=== PATIENT | female | born 1940 | race Caucasian/White ===

== ENCOUNTER 2018-04-22 14:29 | Inpatient (IN) | payer OTHER, MEDICARE ==
--- NOTE | 2018-04-22 14:50 | RAD REPORT ---
EXAM DESCRIPTION: CT - Ct Stroke Brain Wo Cont - 04/22/2018 2:44 pm CLINICAL HISTORY: CVA COMPARISON: 09/20/2011 TECHNIQUE: All CT scans are performed using dose optimization technique as appropriate and may inclu de automated exposure control or mA/KV adjustment according to patient size. FINDINGS: No intracranial hemorrhage, hydrocephalus or extra-axial fluid collection.No areas of brai n edema or evidence of midline shift. The paranasal sinuses and mastoids are clear. The calvarium is intact. IMPRESSION: No acute intracranial abnormality. The findings were discussed with ER physician Dr. Leyva on 04/22/2018 at 2:45 p.m. by telephone.
--- NOTE | 2018-04-22 15:11 | RAD REPORT ---
EXAM DESCRIPTION: RAD - Chest Single View - 04/22/2018 3:00 pm CLINICAL HISTORY: Chest pain. COMPARISON: 03/15/2016 FINDINGS: Portable technique limits examination quality. Mild linear subsegmental atelectasis is present in the left mid lung. The lungs are clear of acute in filtrate. The heart is normal in size. No displaced fractures. IMPRESSION: No acute intrathoracic process suspected.
[2018-04-22] MEDS ORDERED: ASPIRIN 81 MG CHEWABLE TABLET ONE (15:22)
[2018-04-22 15:32] LABS: Protime INR 0.99
[2018-04-22 15:33] LABS: Potassium 3.9 mEq/L (3.6-5.0)
[2018-04-22 15:34] LABS: Absolute Lymphocytes (CBC) 2.1 K/uL (0.7-4.9); Absolute Monocytes 0.6 K/uL (0.1-1.3); Absolute Neutrophil 4.6 K/uL (1.8-8.0); Basophils % 2.2 % (0-1.3); Eosinophils % 6.6 % (0-4.4); Hematocrit 43.4 % (36.0-45.0); Lymphocytes % 26.6 % (15.3-44.8); Monocytes % 7.2 % (3.3-12.3); RBC Red Blood Cell Count 5.23 M/uL (3.86-4.86)
[2018-04-22 15:40] LABS: Albumin 4.3 g/dL (3.2-5.5); Bilirubin Direct 0.1 mg/dL (0-0.2); Bilirubin Total 0.2 mg/dL (0.3-1.2); Magnesium 2.1 mg/dL (1.8-2.5)
[2018-04-22 15:43] LABS: CKMB Creatine Kinase MB 6.7 ng/ml (0.3-4.0)
[2018-04-22 16:30] LABS: Urine Blood NEGATIVE (NEG); Urine Glucose NEGATIVE (NEG); Urine Protein NEGATIVE (NEG)
--- NOTE | 2018-04-22 16:56 | RAD REPORT ---
EXAM DESCRIPTION: MRI - Brain Wo Cont - 04/22/2018 4:44 pm CLINICAL HISTORY: Slurred speech COMPARISON: April 22, [address] TECHNIQUE: Axial, sagittal, and coronal magnetic images of the brain were obtained. Contrast was not requested FINDINGS: Diffusion-weighted/ADC mapping demonstrates a 7 millimeter area of abnormal signal within predominate ly the right thalamus consistent with an acute infarction. . The ventricles are normal caliber. An extra-axial fluid collection is not present The sinuses and mastoids are clear. IMPRESSION: 7 millimeter acute infarct right thalamus . Doctor Leyva of the emergency room was no tified
[2018-04-22] MEDS ORDERED: ONDANSETRON 4 MG/2 ML VIAL IV PRN (17:19)
[2018-04-22] MEDS ORDERED: ACETAMINOPHEN 500 MG TAB PO PRN (17:19)
--- NOTE | 2018-04-22 17:26 | EDPHYS ---
Physician Documentation [facility] Name: Nory Granda Age: 77 yrs Sex: Female : 1940 Arrival Date: 04/22/2018 Time: 14:31 Bed 2 Private MD: Laith Shaw V ED Physician Jeffrey Leyva HPI: 04/22 15:05 This 77 yrs old Female presents to ER via Wheelchair with complaints of milagros Weakness. 15:05 The patient presents to the emergency department with difficult walking, the patient milagros falls to the left. Onset: The symptoms/episode began/occurred this morning, 930am. Context: occurred at home. Associated signs and symptoms: The patient has no apparent associated signs or symptoms. Severity of symptoms: At their worst the symptoms were mild in the emergency department the symptoms have improved moderately. Patient's baseline: Neuro: alert and fully oriented. Current symptoms: Currently, the patient is not experiencing any symptoms, the patient feels back to baseline. The patient has not experienced similar symptoms in the past. Historical: - Allergies: 14:41 PENICILLINS; sv 14:41 Streptomycin; sv - Home Meds: 14:41 Metoprolol Tartrate Oral [Active]; sv 16:14 gabapentin 400 mg oral cap 1 cap 3 times per day [Active]; Singulair 10 mg Oral tab 1 ph tab once daily [Active]; metoprolol tartrate 50 mg Oral tab 1 tab 2 times per day [Active]; losartan-hydrochlorothiazide 100-25 mg oral tab 1 tab once daily [Active]; Synthroid 50 mcg Oral tab 1 tab once daily [Active]; ranitidine HCl 150 mg Oral tab daily [Active]; - PMHx: 14:41 Hypertension; sv - PSHx: 14:41 thyroid; sv - Immunization history:: Adult Immunizations unknown. - Social history:: Smoking status: Patient/guardian denies using tobacco. - Family history:: not pertinent. - Ebola Screening: : No symptoms or risks identified at this time. ROS: 15:05 Constitutional: Negative for fever, chills, and weight loss, Eyes: Negative for injury, milagros pain, redness, and discharge, ENT: Negative for injury, pain, and discharge, Neck: Negative for injury, pain, and swelling, Cardiovascular: Negative for chest pain, palpitations, and edema, Respiratory: Negative for shortness of breath, cough, wheezing, and pleuritic chest pain, Abdomen/GI: Negative for abdominal pain, nausea, vomiting, diarrhea, and constipation, Back: Negative for injury and pain, : Negative for injury, bleeding, discharge, and swelling, MS/Extremity: Negative for injury and deformity, Skin: Negative for injury, rash, and discoloration, Psych: Negative for depression, anxiety, suicide ideation, homicidal ideation, and hallucinations, Allergy/Immunology: Negative for hives, rash, and allergies, Endocrine: Negative for neck swelling, polydipsia, polyuria, polyphagia, and marked weight changes, Hematologic/Lymphatic: Negative for swollen nodes, abnormal bleeding, and unusual bruising. 15:05 Neuro: Positive for weakness, of the left arm and left leg. Exam: 15:05 Constitutional: This is a well developed, well nourished patient who is awake, alert, milagros and in no acute distress. Head/Face: Normocephalic, atraumatic. Eyes: Pupils equal round and reactive to light, extra-ocular motions intact. Lids and lashes normal. Conjunctiva and sclera are non-icteric and not injected. Cornea within normal limits. Periorbital areas with no swelling, redness, or edema. ENT: Nares patent. No nasal discharge, no septal abnormalities noted. Tympanic membranes are normal and external auditory canals are clear. Oropharynx with no redness, swelling, or masses, exudates, or evidence of obstruction, uvula midline. Mucous membranes moist. Neck: Trachea midline, no thyromegaly or masses palpated, and no cervical lymphadenopathy. Supple, full range of motion without nuchal rigidity, or vertebral point tenderness. No Meningismus. Chest/axilla: Normal chest wall appearance and motion. Nontender with no deformity. No lesions are appreciated. Cardiovascular: Regular rate and rhythm with a normal S1 and S2. No gallops, murmurs, or rubs. Normal PMI, no JVD. No pulse deficits. Respiratory: Lungs have equal breath sounds bilaterally, clear to auscultation and percussion. No rales, rhonchi or wheezes noted. No increased work of breathing, no retractions or nasal flaring. Abdomen/GI: Soft, non-tender, with normal bowel sounds. No distension or tympany. No guarding or rebound. No evidence of tenderness throughout. Back: No spinal tenderness. No costovertebral tenderness. Full range of motion. Female : Normal external genitalia. Skin: Warm, dry with normal turgor. Normal color with no rashes, no lesions, and no evidence of cellulitis. MS/ Extremity: Pulses equal, no cyanosis. Neurovascular intact. Full, normal range of motion. Neuro: Awake and alert, GCS 15, oriented to person, place, time, and situation. Cranial nerves II-XII grossly intact. Motor strength 5/5 in all extremities. Sensory grossly intact. Cerebellar exam normal. Normal gait. Psych: Awake, alert, with orientation to person, place and time. Behavior, mood, and affect are within normal limits. 17:01 Neuro: pt presented to [facility] 1431hrs, symptoms were at 930 am, not a tpa candidate, milagros discussed with dr ortiz, he agrees. Vital Signs: 14:38 BP 218 / 87; Pulse 64; Resp 16; Pulse Ox 98% on R/A; ph 16:00 BP 195 / 87; Pulse 57; Resp 16; Temp 98.5(TE); Pulse Ox 98% on R/A; Pain 0/10; ph 17:02 BP 190 / 79; Pulse 58; Resp 18; Temp 97.6(O); Pulse Ox 100% on R/A; Pain 0/10; em1 18:00 BP 164 / 70; Pulse 57; Resp 18; Pulse Ox 98% on R/A; Pain 0/10; em1 19:45 BP 152 / 57; Pulse 59; Resp 16; Pulse Ox 98% ; bp NIH Stroke Scale Scores: 14:45 NIHSS Score: 2 ph 17:01 NIHSS Score: 1 milagros MDM: 14:37 Patient medically screened. [facility] 15:08 Data reviewed: vital signs, nurses notes, lab test result(s), EKG, radiologic studies, [facility] CT scan, plain films, ultrasound. 04/22 14:39 Order name: Basic Metabolic Panel; Complete Time: 16:58 [facility] 04/22 14:39 Order name: BNP; Complete Time: 16:58 [facility] 04/22 14:39 Order name: CBC with Diff [facility] 04/22 14:39 Order name: Ckmb; Complete Time: 16:58 [facility] 04/22 14:39 Order name: CPK; Complete Time: 16:58 [facility] 04/22 14:39 Order name: LFT's; Complete Time: 16:58 [facility] 04/22 14:39 Order name: Magnesium; Complete Time: 16:58 [facility] 04/22 14:39 Order name: PT-INR; Complete Time: 16:58 [facility] 04/22 14:39 Order name: Ptt, Activated; Complete Time: 16:58 [facility] 04/22 14:39 Order name: Troponin (emerg Dept Use Only); Complete Time: 16:58 [facility] 04/22 14:39 Order name: Urine Culture [facility] 04/22 15:42 Order name: Glucose, Ancillary Testing; Complete Time: 16:58 [facility] 04/22 16:20 Order name: Urine Dipstick--Ancillary (enter results); Complete Time: 16:58 04/22 16:59 Order name: CRP [facility] 04/22 14:39 Order name: XRAY Chest (1 view); Complete Time: 16:58 [facility] 04/22 14:39 Order name: CT Stroke Brain w/o Contrast; Complete Time: 16:58 [facility] 04/22 14:39 Order name: Brain Wo Cont MRI; Complete Time: 16:58 [facility] 04/22 15:08 Order name: US Carotid Artery Bilateral [facility] 04/22 16:59 Order name: Sed Rate [facility] 04/22 17:24 Order name: Echo with Doppler [facility] 04/22 17:24 Order name: Basic Metabolic Panel [facility] 04/22 17:24 Order name: Basic Metabolic Panel [facility] 04/22 17:24 Order name: CBC with Automated Diff [facility] 04/22 17:24 Order name: CBC with Automated Diff [facility] 04/22 17:24 Order name: Troponin I [facility] 04/22 17:24 Order name: Troponin I [facility] 04/22 17:24 Order name: Troponin I [facility] 04/22 19:23 Order name: Lipid Profile [facility] 04/22 14:39 Order name: EKG; Complete Time: 14:39 [facility] 04/22 14:39 Order name: Cardiac monitoring; Complete Time: 16:14 [facility] 04/22 14:39 Order name: EKG - Nurse/Tech; Complete Time: 16:14 [facility] 04/22 14:39 Order name: IV Saline Lock; Complete Time: 17:59 [facility] 04/22 14:39 Order name: Labs collected and sent; Complete Time: 16:15 [facility] 04/22 14:39 Order name: O2 Per Protocol; Complete Time: 16:15 [facility] 04/22 14:39 Order name: O2 Sat Monitoring; Complete Time: 16:15 [facility] 04/22 14:39 Order name: Urine Dipstick-Ancillary (obtain specimen); Complete Time: 16:15 [facility] 04/22 17:24 Order name: CONS Physician Consult [facility] 04/22 17:24 Order name: Regular [facility] 04/22 17:24 Order name: EKG Electrocardiogram [facility] 04/22 17:24 Order name: EKG Electrocardiogram [facility] 04/22 17:24 Order name: EKG Electrocardiogram [facility] 04/22 17:24 Order name: EKG Electrocardiogram [facility] Administered Medications: 15:23 Drug: Aspirin Chewable Tablet 324 mg Route: PO; ph 19:20 Follow up: Response: No adverse reaction ph 18:21 Drug: NS 0.9% 1000 ml Route: IV; Rate: 1 bolus; Site: right forearm; ph 19:20 Follow up: Response: No adverse reaction; IV Intake: 1000ml ph 19:21 Follow up: Response: No adverse reaction; IV Status: Completed infusion ph 18:21 Drug: foLIC Acid 1 mg Route: IVPB; Site: right forearm; ph 19:20 Follow up: Response: No adverse reaction; IV Status: Completed infusion ph Point of Care Testing: Blood Glucose: 14:55 Blood Glucose: 89 mg/dL; ph Ranges: Critical Glucose Levels:Adult <50 mg/dl or >400 mg/dl <40 mg/dl or >180 mg/dl Disposition: 04/22/18 17:26 Hospitalization ordered by Laith Shaw for Inpatient Admission. Preliminary diagnosis are Cerebral infarction - right 7mm thalamic infarction, Essential (primary) hypertension. - Bed requested for Telemetry/MedSurg (Inpatient). - Status is Inpatient Admission. bp - Condition is Fair. - Problem is new. - Symptoms have improved. UTI on Admission? No NIH Stroke Scale - NIH Stroke Score Date: 04/22/2018 Time: 14:45 Total Score = 2 1a. Level of Consciousness (LOC) - 0(Alert) 1b. Level of Consciousness (LOC) (Year \T\ Age) - 0(Both) 1c. LOC Commands (Open \T\ Closes Eyes/Food Storeroom Clerk) - 0(Both) 2. Best Gaze (Lateral Gaze Paresis) - 0(Normal) 3. Visual Field Loss - 0(No visual loss) 4. Facial Palsy - 0(Normal) 5a. Left Arm: Motor (10-second hold) - 1(Drift) 5b. Right Arm: Motor (10-second hold) - 0(No drift) 6a. Left Leg: Motor (5-second hold - always test supine) - 1(Drift) 6b. Right Leg: Motor (5-second hold - always test supine) - 0(No drift) 7. Limb Ataxia (finger/nose \T\ heel/franks - test with eyes open) - 0(Absent) 8. Sensory Loss (pinprick arms/legs/face) - 0(Normal) 9. Best Language: Aphasia (description/naming/reading) - 0(No aphasia) 10. Dysarthria (speech clarity - read or repeat words) - 0(Normal) 11. Extinction and Inattention (visual/tactile/auditory/spatial/personal) - 0(No abnormality) Initials: NIH Stroke Scale - NIH Stroke Score Date: 04/22/2018 Time: 17:01 Total Score = 1 1a. Level of Consciousness (LOC) - 0(Alert) 1b. Level of Consciousness (LOC) (Year \T\ Age) - 0(Both) 1c. LOC Commands (Open \T\ Closes Eyes/Food Storeroom Clerk) - 0(Both) 2. Best Gaze (Lateral Gaze Paresis) - 0(Normal) 3. Visual Field Loss - 0(No visual loss) 4. Facial Palsy - 0(Normal) 5a. Left Arm: Motor (10-second hold) - 0(No drift) 5b. Right Arm: Motor (10-second hold) - 0(No drift) 6a. Left Leg: Motor (5-second hold - always test supine) - 0(No drift) 6b. Right Leg: Motor (5-second hold - always test supine) - 0(No drift) 7. Limb Ataxia (finger/nose \T\ heel/franks - test with eyes open) - 0(Absent) 8. Sensory Loss (pinprick arms/legs/face) - 1(Mild to moderate loss) 9. Best Language: Aphasia (description/naming/reading) - 0(No aphasia) 10. Dysarthria (speech clarity - read or repeat words) - 0(Normal) 11. Extinction and Inattention (visual/tactile/auditory/spatial/personal) - 0(No abnormality) Initials: milagros Signatures: Dispatcher [employer] EDIda Peck, RN RN Jessie Garces RN RN Jeffrey Hall MD MD cha Hall, Patricia, RN RN Los Velásquez, RN RN bp Corrections: (The following items were deleted from the chart) 19:09 17:26 Hospitalization Ordered by Laith Shaw MD for Inpatient Admission. 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 Bed requested for Telemetry/MedSurg (Inpatient). Status is Inpatient Admission. Condition is Fair. Problem is new. Symptoms have improved. UTI on Admission? No. [facility] 20:41 19:09 04/22/2018 17:26 Hospitalization Ordered by Laith Shaw MD for Inpatient bp Admission. Preliminary diagnosis is Cerebral infarction - right 7mm thalamic infarction; Essential (primary) hypertension. Bed requested for Telemetry/MedSurg (Inpatient). Status is Inpatient Admission. Condition is Fair. Problem is new. Symptoms have improved. UTI on Admission? No. dw
--- NOTE | 2018-04-22 17:26 | ER ---
Nurse's Notes [facility] Name: Nory Granda Age: 77 yrs Sex: Female : 1940 Arrival Date: 04/22/2018 Time: 14:31 Bed 2 Private MD: Laith Shaw V Diagnosis: Cerebral infarction-right 7mm thalamic infarction;Essential (primary) hypertension Presentation: 04/22 14:38 Presenting complaint: Patient states: left arm and leg weakness started about 1000 sv today. Transition of care: patient was not received from another setting of care. An acute neurological deficit is present. The charge nurse has been notified. The patient has been moved to a treatment area. Onset of symptoms was April 22, 2018 at 10:00. Care prior to arrival: None. 14:38 Method Of Arrival: Wheelchair sv 14:38 Acuity: ANNITA 2 sv 15:30 Pre-hospital glucose is not applicable to this patient. Risk Assessment: Do you want to ph hurt yourself or someone else? Patient reports no desire to harm self or others. Initial Sepsis Screen: Does the patient meet any 2 criteria? No. Patient's initial sepsis screen is negative. Does the patient have a suspected source of infection? No. Patient's initial sepsis screen is negative. Triage Assessment: 17:55 The onset of the patients symptoms was April 22, 2018 at 09:30. ph Stroke Activation: Symtpom onset >3 hours and < 6 hours Physician: Stroke Attending; Name: ; Notified At: ; Arrived At: Physician: Chief Stroke Resident; Name: ; Notified At: ; Arrived At: Physician: Stroke Resident; Name: ; Notified At: ; Arrived At: Physician: ED Attending; Name: ; Notified At: ; Arrived At: Physician: ED Resident; Name: ; Notified At: ; Arrived At: Historical: - Allergies: 14:41 PENICILLINS; sv 14:41 Streptomycin; sv - Home Meds: 14:41 Metoprolol Tartrate Oral [Active]; sv 16:14 gabapentin 400 mg oral cap 1 cap 3 times per day [Active]; Singulair 10 mg Oral tab 1 ph tab once daily [Active]; metoprolol tartrate 50 mg Oral tab 1 tab 2 times per day [Active]; losartan-hydrochlorothiazide 100-25 mg oral tab 1 tab once daily [Active]; Synthroid 50 mcg Oral tab 1 tab once daily [Active]; ranitidine HCl 150 mg Oral tab daily [Active]; - PMHx: 14:41 Hypertension; sv - PSHx: 14:41 thyroid; sv - Immunization history:: Adult Immunizations unknown. - Social history:: Smoking status: Patient/guardian denies using tobacco. - Family history:: not pertinent. - Ebola Screening: : No symptoms or risks identified at this time. Screenin:28 Abuse screen: Denies threats or abuse. Denies injuries from another. Nutritional ph screening: No deficits noted. Tuberculosis screening: No symptoms or risk factors identified. Fall Risk No fall in past 12 months (0 pts). No secondary diagnosis (0 pts). IV access (20 points). Ambulatory Aid- None/Bed Rest/Nurse Assist (0 pts). Gait- Weak (10 pts.). Mental Status- Oriented to own ability (0 pts). Total Mackey Fall Scale indicates Low Risk Score (25-44 pts). Fall prevention measures have been instituted. Side Rails Up X 2 Placed close to Nursing Station Family Present and informed to notify staff if they need to leave bedside As available Patient and Family Educated on Fall Prevention Program and strategies. Assessment: 14:42 Reassessment: in CT now. MRI requesting patient. Pt to go back to exam room [address] ss scan to obtain full assessment and lab work. 14:45 T-PA (Activase) Screening: Indications: Treatment will start within 4.5 hours onset of ph symptoms: No. Contraindications: Patient reports onset of signs and symptoms of stroke greater than 6 hours ago: No. 15:23 Reassessment: Patient appears in no apparent distress at this time. Patient is alert, ph oriented x 3, equal unlabored respirations, skin warm/dry/pink. US at bedside. 15:24 Patient has been NPO before screening. The patient is alert, and able to follow ph commands. The patient does not exhibit slurred or garbled speech. The patient is not exhibiting difficulty speaking. The patient does not exhibit difficulty understanding words. The patient is able to swallow own secretions with no drooling or need for suction. Patient tolerated one teaspoon of water. No drooling, immediate coughing, gurgling, or clearing of the throat was noted. The patient tolerated 90mL of water. No drooling, immediate coughing, gurgling, or clearing of the throat was noted. The patient passed the bedside swallow screening. Oral medications may be given as ordered. Contact Physician for further diet orders. Provider notified of bedside swallow screening results: Jeffrey Leyva MD. General: Appears in no apparent distress. comfortable, well groomed, Behavior is calm, cooperative, appropriate for age. Pain: Denies pain. Neuro: Level of Consciousness is awake, alert, obeys commands, Oriented to person, place, time, situation, Wet Process Miller are weak on left Moves all extremities. Gait is unsteady, Speech is normal, Facial symmetry appears normal, Pupils are PERRLA, Reports weakness in left leg and left arm Denies blurred vision dizziness, headache. Cardiovascular: Denies chest pain, shortness of breath, Capillary refill < 3 seconds Patient's skin is warm and dry. Respiratory: Airway is patent Respiratory effort is even, unlabored, Respiratory pattern is regular, symmetrical. Derm: Skin is intact, is healthy with good turgor, Skin is pink, warm \T\ dry. Musculoskeletal: Circulation, motion, and sensation intact. Range of motion: intact in all extremities, Swelling absent. 16:30 Reassessment: Patient appears in no apparent distress at this time. Patient and/or ph family updated on plan of care and expected duration. Pain level reassessed. Patient is alert, oriented x 3, equal unlabored respirations, skin warm/dry/pink. Pt resting quietly, denies pain or nausea, family at bedside. 17:54 Reassessment: Patient appears in no apparent distress at this time. Patient and/or ph family updated on plan of care and expected duration. Pain level reassessed. Patient is alert, oriented x 3, equal unlabored respirations, skin warm/dry/pink. Ida Bullock RN to obtain IV access w/ US. 18:45 Reassessment: Patient appears in no apparent distress at this time. Patient and/or ph family updated on plan of care and expected duration. Pain level reassessed. Patient is alert, oriented x 3, equal unlabored respirations, skin warm/dry/pink. Pt resting quietly, awaiting room assignment, family at bedside. 19:01 Reassessment: RECD REPORT FROM TRIXIE SAINI. 77YO WF P/W LEFT SIDED NUMBNESS SINCE 929. bp ALL CURRENT ORDERS COMPLETED, ADMIT IN PROCESS. NO CURRENT NEURO DEFICITS, BUT ABNORMALITY NOTED ON CT. Vital Signs: 14:38 BP 218 / 87; Pulse 64; Resp 16; Pulse Ox 98% on R/A; ph 16:00 BP 195 / 87; Pulse 57; Resp 16; Temp 98.5(TE); Pulse Ox 98% on R/A; Pain 0/10; ph 17:02 BP 190 / 79; Pulse 58; Resp 18; Temp 97.6(O); Pulse Ox 100% on R/A; Pain 0/10; em1 18:00 BP 164 / 70; Pulse 57; Resp 18; Pulse Ox 98% on R/A; Pain 0/10; em1 19:45 BP 152 / 57; Pulse 59; Resp 16; Pulse Ox 98% ; bp NIH Stroke Scale Scores: 14:45 NIHSS Score: 2 ph 17:01 NIHSS Score: 1 [facility] ED Course: 14:31 Patient arrived in ED. mr 14:32 Laith Shaw MD is Private Physician. mr 14:36 Jeffrey Leyva MD is Attending Physician. milagros 14:41 Triage completed. sv 14:41 Trixie Granda, RN is Primary Nurse. ph 14:42 Arm band placed on right wrist. sv 14:44 CT Stroke Brain w/o Contrast In Process Unspecified. EDMS 14:58 XRAY Chest (1 view) In Process Unspecified. EDMS 15:13 Note: US BEING DONE PORTABLE/BEDSIDE. lc3 15:15 EKG done, by fiber technologist. reviewed by Jeffrey Leyva MD. sm3 15:15 Missed attempt(s): 22 gauge in right forearm. Bleeding controlled, band aid applied, ph catheter tip intact. 15:18 Missed attempt(s): 24 gauge in right hand. Bleeding controlled, band aid applied, ph catheter tip intact. 15:22 Missed attempt(s): 22 gauge in left wrist. ss 15:31 Patient has correct armband on for positive identification. Placed in gown. Bed in low ph position. Call light in reach. Side rails up X 1. bus driver/monitor on. Pulse ox on. NIBP on. Warm blanket given. 15:51 US Carotid Artery Bilateral In Process Unspecified. EDMS 15:59 Ultrasound completed. Patient tolerated well. lc3 16:10 Patient moved to MRI via wheelchair. ka 16:37 Brain Wo Cont MRI In Process Unspecified. EDMS 16:43 MRI completed. Patient tolerated well. Patient moved back from MRI. em2 17:07 Laith Shaw MD is Hospitalizing Provider. milagros 17:51 No provider procedures requiring assistance completed. ph 17:58 Inserted saline lock: 22 gauge in right forearm, using aseptic technique. Flushed right sv forearm with 5 ml normal saline. 19:21 Patient admitted, IV remains in place. ph Administered Medications: 15:23 Drug: Aspirin Chewable Tablet 324 mg Route: PO; ph 19:20 Follow up: Response: No adverse reaction ph 18:21 Drug: NS 0.9% 1000 ml Route: IV; Rate: 1 bolus; Site: right forearm; ph 19:20 Follow up: Response: No adverse reaction; IV Intake: 1000ml ph 19:21 Follow up: Response: No adverse reaction; IV Status: Completed infusion ph 18:21 Drug: foLIC Acid 1 mg Route: IVPB; Site: right forearm; ph 19:20 Follow up: Response: No adverse reaction; IV Status: Completed infusion ph Point of Care Testing: Blood Glucose: 14:55 Blood Glucose: 89 mg/dL; ph Ranges: Intake: 19:20 IV: 1000ml; Total: 1000ml. ph Outcome: 17:26 Decision to Hospitalize by Provider. milagros 20:13 Admitted to Tele accompanied by tech, family with patient, via stretcher, room 229, bp with chart, Report called to QIAN SAINI 20:13 Condition: stable 20:13 Instructed on the need for admit. 20:41 Patient left the ED. bp NIH Stroke Scale - NIH Stroke Score Date: 04/22/2018 Time: 14:45 Total Score = 2 1a. Level of Consciousness (LOC) - 0(Alert) 1b. Level of Consciousness (LOC) (Year \T\ Age) - 0(Both) 1c. LOC Commands (Open \T\ Closes Eyes/Utilization Specialist) - 0(Both) 2. Best Gaze (Lateral Gaze Paresis) - 0(Normal) 3. Visual Field Loss - 0(No visual loss) 4. Facial Palsy - 0(Normal) 5a. Left Arm: Motor (10-second hold) - 1(Drift) 5b. Right Arm: Motor (10-second hold) - 0(No drift) 6a. Left Leg: Motor (5-second hold - always test supine) - 1(Drift) 6b. Right Leg: Motor (5-second hold - always test supine) - 0(No drift) 7. Limb Ataxia (finger/nose \T\ heel/franks - test with eyes open) - 0(Absent) 8. Sensory Loss (pinprick arms/legs/face) - 0(Normal) 9. Best Language: Aphasia (description/naming/reading) - 0(No aphasia) 10. Dysarthria (speech clarity - read or repeat words) - 0(Normal) 11. Extinction and Inattention (visual/tactile/auditory/spatial/personal) - 0(No abnormality) Initials: NIH Stroke Scale - NIH Stroke Score Date: 04/22/2018 Time: 17:01 Total Score = 1 1a. Level of Consciousness (LOC) - 0(Alert) 1b. Level of Consciousness (LOC) (Year \T\ Age) - 0(Both) 1c. LOC Commands (Open \T\ Closes Eyes/Utilization Specialist) - 0(Both) 2. Best Gaze (Lateral Gaze Paresis) - 0(Normal) 3. Visual Field Loss - 0(No visual loss) 4. Facial Palsy - 0(Normal) 5a. Left Arm: Motor (10-second hold) - 0(No drift) 5b. Right Arm: Motor (10-second hold) - 0(No drift) 6a. Left Leg: Motor (5-second hold - always test supine) - 0(No drift) 6b. Right Leg: Motor (5-second hold - always test supine) - 0(No drift) 7. Limb Ataxia (finger/nose \T\ heel/franks - test with eyes open) - 0(Absent) 8. Sensory Loss (pinprick arms/legs/face) - 1(Mild to moderate loss) 9. Best Language: Aphasia (description/naming/reading) - 0(No aphasia) 10. Dysarthria (speech clarity - read or repeat words) - 0(Normal) 11. Extinction and Inattention (visual/tactile/auditory/spatial/personal) - 0(No abnormality) Initials: milagros Signatures: Dispatcher [employer] Ida Salazar RN RN sv Anderson, Corey, MD MD cha Rivera, Maria mr Martinez, Eric em1 Na Box RN RN ss Montes, Enrique em2 Trixie Granda RN RN Mustapha Cerda Katelyn ka Peltier, Brian, RN RN Nakia Chavis 3 Corrections: (The following items were deleted from the chart) 17:54 14:38 BP 218 / 87; [facility]
--- NOTE | 2018-04-22 17:41 | RAD REPORT ---
EXAM DESCRIPTION: STEVAN - CP - 04/22/2018 3:53 pm CLINICAL HISTORY: CVA COMPARISON: None. TECHNIQUE: Real-time sonographic evaluation of both carotid systems was performed. Doppler interroga tion was performed with waveform tracing bilaterally. FINDINGS: Normal high resistance waveforms are noted in both external carotid arteries. The common c arotid arteries and internal carotid arteries show normal low resistance waveforms. Small focal hard plaque is seen left carotid bulb. Peak systolic and end diastolic velocity values an d the ICA/CCA ratios are in the non-hemodynamically significant range. Antegrade flow seen in both vertebral arteries. IMPRESSION: Small focal hard plaque left carotid bulb. No evidence of a hemodynamically significant stenosis.
[2018-04-22] MEDS ORDERED: NA CHLORIDE 0.9% 1,000 ML IV SCH (18:00)
--- NOTE | 2018-04-22 18:38 | P.HP ---
Certification for Inpatient Patient admitted to: Inpatient With expected LOS: >2 Midnights Practitioner: I am a practitioner with admitting privileges, knowledge of patient current condition, hospital course, and medical plan of care. Services: Services provided to patient in accordance with Admission requirements found in Title 42 Section 412.3 of the Code of Federal Regulations Patient History Date of Service: 04/22/18 Reason for admission: L SIDE ARM AND LEG WEAKNESS History of Present Illness: MS. HAAS HAS HTN AND THIS AM ABOUT 8 SHE STARTED TO HAVE WEAKNESS ON L SIDE OF BODY, DID NOT THINK MUCH OF IT AND WENT ON TO PLAY CARDS BUT FELL TWICE. ABOUT 1 PM SHE REPORTS TO ER. ON MRI SHE HAS THALAMIC LACUNAR INFARCT ON RIGHT SIDE. SHE IS NOT ANY WORSE. DR GUDINO HAS CALLED DR. PATINO ALSO. Allergies Penicillins Allergy (Severe, Verified 01/18/15 16:03) Anaphylaxis streptomycin [Streptomycin] Allergy (Severe, Verified 01/18/15 16:03) Anaphylaxis Home Medications: Cetirizine HCl [Zyrtec] 10 mg PO DAILY 01/18/15 Gabapentin [Neurontin] 300 mg PO TID 01/18/15 Levothyroxine [Synthroid*] 50 mcg PO [id number] 01/18/15 Losartan/Hydrochlorothiazide [Losartan-Hctz 100-25 mg Tab] 1 each PO DAILY AFTER SUPPER 01/18/15 Metoprolol Succinate [Toprol Xl*] 50 mg PO BID 01/18/15 Pantoprazole Sodium [Protonix] 40 mg PO DAILY 01/18/15 Simvastatin [Zocor*] 40 mg PO BEDTIME 01/18/15 Review of Systems 10-point ROS is otherwise unremarkable General: Weakness Physical Examination - Physical Exam General: Alert, In no apparent distress HEENT: Atraumatic, PERRLA, Mucous membr. moist/pink, EOMI, Sclerae nonicteric Neck: Supple, 2+ carotid pulse no bruit, No LAD, Without JVD or thyroid abnormality Respiratory: Clear to auscultation bilaterally, Normal air movement Cardiovascular: Regular rate/rhythm, Normal S1 S2 Gastrointestinal: Normal bowel sounds, No tenderness Musculoskeletal: No tenderness Integumentary: No rashes Neurological: Normal speech, Sensation intact, Abnormal strength (MILD LLL WEAKNESS 4/5 AND MARI MILDER WEAKNESS.) Lymphatics: No axilla or inguinal lymphadenopathy - Studies Laboratory Data (last 24 hrs) 04/22/18 15:18: WBC 8.0, Hgb 14.2, Hct 43.4, Plt Count RN MENTAL HEALTH 04/22/18 15:18: B-Natriuretic Peptide 138 H 04/22/18 14:58: PT 11.7, INR 0.99, APTT 30.3 04/22/18 14:58: Sodium 139, Potassium 3.9, BUN 18, Creatinine 0.84, Glucose 108 , Magnesium 2.1, Total Bilirubin 0.2 L, AST 26, ALT 22, Alkaline Phosphatase 99 Assessment and Plan - Problems (Diagnosis) (1) Thalamic infarct, acute Current Visit: Yes Status: Acute Plan: ASPIRIN CAROTID MILD PLAQUE L SIDE. STROKE IS ON RIGHT SIDE SMALL VESSEL DISEASE. PT CONSULT CHECK LDL - Advance Directives Does patient have a Living Will: No Does patient have a Durable POA for Healthcare: No
[2018-04-22] MEDS ORDERED: NA CHLORIDE 0.9% 1,000 ML ONE (18:50)
[2018-04-22] MEDS ORDERED: FOLIC ACID 5 MG/ML VIAL ONE (18:51)
[2018-04-22 21:27] VITALS: BMI 31.0
[2018-04-22] MEDS: NA CHLORIDE 0.9% 1,000 ML IV SCH (21:44)
[2018-04-22] MEDS: LOSARTAN POTASSIUM 50 MG TABLET PO SCH (21:45)
[2018-04-22] MEDS: METOPROLOL TAR 50 MG TAB PO SCH (21:45)
[2018-04-22] MEDS: ENOXAPARIN 30 MG/0.3 ML SQ SCH (21:45)
[2018-04-23 05:41] LABS: Potassium 3.7 mEq/L (3.6-5.0)
[2018-04-23 05:46] LABS: Absolute Lymphocytes (CBC) 1.7 K/uL (0.7-4.9); Absolute Monocytes 0.6 K/uL (0.1-1.3); Absolute Neutrophil 4.4 K/uL (1.8-8.0); Basophils % 1.3 % (0-1.3); Eosinophils % 6.6 % (0-4.4); Hematocrit 40.2 % (36.0-45.0); Lymphocytes % 23.7 % (15.3-44.8); MCH 27.9 pg (27.0-35.0); MCV 82.7 fL (80-100); MPV 10.2 fL (7.6-11.3); Monocytes % 7.8 % (3.3-12.3); RBC Red Blood Cell Count 4.86 M/uL (3.86-4.86)
--- NOTE | 2018-04-23 06:23 | EKG ---
Test Date: 2018-04-22 Test Time: 14:48:02 Powder Shoveler: TIFFANIE MEASUREMENT RESULTS: Intervals: Rate: 62 [place]: 160 QRSD: 82 QT: 418 QTc: 424 [place]: P: 47 [place]: 160 QRS: 33 T: 58 INTERPRETIVE STATEMENTS: Normal sinus rhythm Normal ECG Compared to ECG 01/18/2015 15:19:48 T-wave abnormality no longer present Electronically Signed On 04-23-18 06:22:35 CDT by Pillo Graham
--- NOTE | 2018-04-23 09:10 | EKG ---
Test Date: 2018-04-23 Test Time: 08:43:08 Sign Hanger Supervisor: GIANLUCA MEASUREMENT RESULTS: Intervals: Rate: 59 [place]: 170 QRSD: 82 QT: 434 QTc: 429 [employer]: P: 49 [place]: 170 QRS: 46 T: 62 INTERPRETIVE STATEMENTS: Sinus bradycardia Cannot rule out Anterior infarct, age undetermined Abnormal ECG Compared to ECG 04/22/2018 14:48:02 Myocardial infarct finding now present Sinus rhythm no longer present Electronically Signed On 04-23-18 09:10:14 CDT by Pillo Graham
[2018-04-23] MEDS: METOPROLOL TAR 50 MG TAB PO SCH ×2 (09:25→22:52)
[2018-04-23] MEDS: ASPIRIN EC 325 MG TABLET PO SCH (09:26)
[2018-04-23] MEDS: LOSARTAN POTASSIUM 50 MG TABLET PO SCH ×2 (09:26→22:52)
[2018-04-23] MEDS: FOLIC ACID 1 MG in NA CHLORIDE 0.9% 50 ML IV SCH (10:26)
--- NOTE | 2018-04-23 12:28 | ECHO ---
HEIGHT: 5 ft 2 in WEIGHT: 169 lb 11.2 oz DATE OF STUDY: 04/23/[address]: Jeffrey Leyva MD 2-DIMENSIONAL: YES M.MODE: YES DOPPLER: YES COLOR FLOW: YES TDS: PORTABLE: DEFINITY: BUBBLE STUDY: DIAGNOSIS: CEREBRAL VASCULAR ACCIDENT CARDIAC HISTORY: CATHERIZATION: NO SURGERY: NO PROSTHETIC VALVE: NO PACEMAKER: NO MEASUREMENTS (cm) DIASTOLIC (NORMALS) SYSTOLIC (NORMALS) IVSd 1.1 (0.6-1.2) LA Diam 4.0 (1.9-4.0) LVEF 72% LVIDd 4.3 (3.5-5.7) LVIDs 2.5 (2.0-3.5) %FS 41% LVPWd 1.0 (0.6-1.2) Ao Diam 2.5 (2.0-3.7) 2 DIMENSIONAL ASSESSMENT: RIGHT ATRIUM: NORMAL LEFT ATRIUM: DILATED RIGHT VENTRICLE: NORMAL LEFT VENTRICLE: NORMAL TRICUSPID VALVE: NORMAL MITRAL VALVE: MITRAL ANNULAR CALCIFICATION, NOTED PULMONIC VALVE: NORMAL AORTIC VALVE: NORMAL PERICARDIAL EFFUSION: NONE AORTIC ROOT: NORMAL LEFT VENTRICULAR WALL MOTION: NORMAL DOPPLER/COLOR FLOW: MILD MITRAL AND TRICUSPID REGURGITATION. NORMAL RIGHT VENTRICULAR SYSTOLIC PRESSURE. COMMENTS: NORMAL LEFT VENTRICULAR EJECTION FRACTION. MITRAL ANNULAR CALCIFICATION. DILATED LEFT ATRIUM. MILD MITRAL AND TIRCUSPID REGURGITATION, TECHNOLOGIST: CHILO BERRIOS
[2018-04-23] MEDS: NA CHLORIDE 0.9% 1,000 ML IV SCH (17:04)
[2018-04-23] MEDS: ENOXAPARIN 30 MG/0.3 ML SQ SCH (17:05)
--- NOTE | 2018-04-23 20:34 | CON ---
Reason For Consultation: Consultation called because of stroke. History Of Present Illness: Ms. Granda is a 77-year-old patient with hypertension and dyslipidemia, wh o was not very compliant with medications and was not on aspirin and comes in with sudden onset left arm and leg weakness. Her symptoms began on the 12th, that is yesterday, around 10 in the morning. It was sudden onset and there was some numbness and weakness in the left arm and leg. She came into [facility] and had a head CT scan, which showed no acute ischemic or hemorrhagic change. A subsequent brain MRI/protocol identified a 7 mm acute infarct in the right thalamus. The patient was given aspirin in the emergency room. She was not a candidate for tPA as the time of arrival was sridhar und 2:31 and the episode occurred around 10 in the morning. She was admitted to the hospital for fur ther stroke risk stratification. Since onset, she said she has returned significantly back towards h er baseline despite the persistence of the stroke with her left-sided arm and leg numbness, incoordin ation, and mild weakness. She ambulated well with physical therapy and actually without a walker, sh e did drift somewhat to the left but with a walker she was able to ambulate in a straight line and it was recommended later by the physical therapist that she continues with some therapy perhaps acute i npatient rehabilitation for about a week. In the emergency room, her NIH Stroke Scale was indicated as a 2 at highest. Past Medical History: Hypertension, dyslipidemia, hypothyroidism, gastroesophageal reflux, and sinus allergies. Surgical History: Thyroid surgery. Allergies: PENICILLIN AND STREPTOMYCIN. Home Medications: Metoprolol daily, gabapentin 400 mg 3 times daily, Singulair 10 mg daily, Metoprol ol 50 mg twice daily, losartan, hydrochlorothiazide 100/25 once daily, Synthroid 500 mcg daily, and r anitidine 150 mg daily. Family History: Noncontributory. Social History: Denies alcohol, tobacco, or IV drug use. Review of Systems: Denies any recent fevers, chills, nausea, vomiting, myalgias, arthralgias, headache, weight change, r hayde, or psychiatric complaints. No gastrointestinal or genitourinary symptoms. Physical Examination: Vital Signs: Blood pressure most recently 196/88, pulse 57, respiratory rate 16-20, temperature 97.2 , and oxygen saturation 99%. Weight 169 pounds. Height 5 feet and 2 inches, BMI 31. General: Ms. Granda is resting comfortably in her room. She was actually cleared for eating by speech pathology and is about to her lunch. She is in no acute distress. HEENT: She is normocephalic and atraumatic. Her sclerae are anicteric. Her oropharynx is moist and pink. Neck: Supple. Chest: Clear. Heart: Regular. Extremities: Show no edema, cyanosis, or clubbing. Neurologic: She is alert, oriented to person, pl charles, time, and situation. She has no expressive or receptive aphasias. On cranial nerves II through XII, she reports a subtle decrease to light touch and temperature of the left face compared to the r ight side. Otherwise, cranial nerves II through XII are intact. Motor examination in the upper and lower extremities bilaterally, she has 5/5 strength proximally and distally. Sensory examination, sh tashia has a slight decrease to light touch and temperature in the left arm compared to the right arm. Th e lower extremities; 5/5 strength proximally and distally. Sensory exam in lower extremities shows s light decreased light touch and temperature in the left leg compared to the right leg. Coordination, she has subtle dysmetria noted in the left arm compared to the right and very subtle in the left leg compared to the right side. Gait, mild tendency to drift to the left. Laboratory Studies: Complete blood count with differential is normal. Coagulation panel is normal. Her electrolyte panel is unremarkable. Liver function studies show mild elevation of creatine kinase 280, CK-MB slightly elevated to 6.7 with normal rapid troponins and troponin. Her cholesterol panel shows an elevated total cholesterol of 227, triglycerides normal at 126, and LDL cholesterol elevate d at 49 with HDL of 53. Her cholesterol to HDL ratio was 4.28. Urinalysis is unremarkable. Her tushar st x-ray shows no acute intrathoracic processes. Electrocardiogram shows normal sinus rhythm and is a normal study. Carotid artery ultrasound shows no evidence of hemodynamically significant stenosis. There is small focal hard plaque in the left carotid bulb. Her echocardiogram shows ejection fracti on of 72% with mitral annular calcification. Dilated left atrium. Mild mitral and tricuspid regurgi tation. Assessment: Ms. Granda is a 77-year-old patient with an acute stroke in the setting of hypertension an d dyslipidemia while not taking an aspirin. The stroke is thalamic and likely to be lacunar, and has an etiology of lipohyalinosis. She is recovering very well from this stroke. Plan: She should continue with some therapy given her incoordination, tendency to drift to the left with gait and therefore it is recommended that acute inpatient rehabilitation be done. She does have an NIH Stroke Scale that was found to be 4. 1.She should be in the acute inpatient rehabilitation to do rehabilitation likely for about a week. 2.Again, aspirin 81 mg daily, folate 1 mg daily. 3.Continue with aggressive management of dyslipidemia with high-dose statin on a daily basis. 4.We will continue with some mild permissive hypertension during the phase of their acute stroke rec overy. 5.The patient was instructed on importance of decreasing certain risk factors for stroke including d iet modifications, hydrating very well, resting and regular exercise. Once the patient is discharged from hospital, follow up with Dr. Marsh in clinic 1 month later. MARILEE/FLORA Voice ID: [id number] Report ID: [id number]
--- NOTE | 2018-04-23 21:13 | P.PN ---
Subjective Date of Service: 04/23/18 Chief Complaint: L SIDE ARM AND LEG WEAKNESS Subjective: Improving (FEELS STORNGER THAN YEST.) Review of Systems 10-point ROS is otherwise unremarkable Neurological: Weakness (MILD MARI AND LLL.) Physical Examination - Vital Signs Temperature: 98.2 F Blood Pressure: 167/77 Pulse: 61 Respirations: 18 Pulse Ox (%): 97 - Physical Exam General: Alert, In no apparent distress HEENT: Atraumatic, PERRLA, EOMI Neck: Supple, JVD not distended Respiratory: Clear to auscultation bilaterally, Normal air movement Cardiovascular: Regular rate/rhythm, Normal S1 S2 Gastrointestinal: Normal bowel sounds, No tenderness Musculoskeletal: No tenderness Integumentary: No rashes Neurological: Normal speech, Normal tone, Normal affect, Abnormal strength ( MILD LLL ANDLUL WEAKNESS. NO OTHER NEURO SIGNS.) Lymphatics: No axilla or inguinal lymphadenopathy - Studies Medications List Reviewed: Yes Assessment And Plan - Current Problems (Diagnosis) (1) Thalamic infarct, acute Onset Date: 04/23/18 Current Visit: Yes Status: Acute Plan: ASPIRIN CAROTID MILD PLAQUE L SIDE. STROKE IS ON RIGHT SIDE SMALL VESSEL DISEASE. PT CONSULT CHECK LDL PT SAW THE PATIENT WILL REFER TO REHAB RESUME ASA ADD ATORVASTATIN.
[2018-04-24] MEDS ORDERED: LEVOTHYROXINE SOD 0.1 MG TAB PO SCH (06:00)
[2018-04-24 08:19] VITALS: O2SAT 96
[2018-04-24] MEDS: ASPIRIN EC 325 MG TABLET PO SCH (08:44)
[2018-04-24] MEDS: GABAPENTIN 400 MG CAP PO SCH ×2 (08:44→13:54)
[2018-04-24] MEDS: FOLIC ACID 1 MG in NA CHLORIDE 0.9% 50 ML IV SCH (08:49)
[2018-04-24] MEDS ORDERED: LOSARTAN/HCTZ 50-12.5 PO SCH (09:00)
[2018-04-24] MEDS ORDERED: METOPROLOL XL 50 MG TAB PO SCH (09:00)
[2018-04-24] MEDS ORDERED: MONTELUKAST 10 MG TAB PO SCH (09:00)
[2018-04-24] MEDS ORDERED: RANITIDINE 150 MG TABLET PO SCH (09:00)
[2018-04-24] MEDS ORDERED: AMLODIPINE 5 MG TAB PO SCH (09:00)
--- NOTE | 2018-04-24 13:04 | P.DS ---
Admission Date: 04/22/18 Discharge Date: 04/24/18 Disposition: TRANSFER TO INPATIENT REHAB Discharge Condition: GOOD Reason for Admission: L SIDE ARM AND LEG WEAKNESS - Problems (1) Thalamic infarct, acute Onset Date: 04/23/18 Current Visit: Yes Status: Acute Brief History of Present Illness: MS. HAAS HAS HTN AND THIS AM ABOUT 9 SHE STARTED TO HAVE WEAKNESS ON L SIDE OF BODY, DID NOT THINK MUCH OF IT AND WENT ON TO PLAY CARDS BUT FELL TWICE. ABOUT 1 PM SHE REPORTS TO ER. ON MRI SHE HAS THALAMIC LACUNAR INFARCT ON RIGHT SIDE. SHE IS NOT ANY WORSE. DR GUDINO HAS CALLED DR. PATINO. MS. HAAS IS DOING BETTER. HE RBP IS HIGH. I HAVE ADJUSTED THE MEDS. SHE IS STABLE TO [facility]. Vital Signs/Physical Exam: Temp Pulse Resp BP Pulse Ox 97.4 F 61 16 177/81 H 97 04/24/18 12:00 04/24/18 12:00 04/24/18 12:00 04/24/18 12:00 04/24/18 12:00 Laboratory Data at Discharge: WBC 7.3 K/uL (4.3-10.9) 04/23/18 05:12 Hgb 13.5 g/dL (12.0-15.0) 04/23/18 05:12 Hct 40.2 % (36.0-45.0) 04/23/18 05:12 Plt Count 224 K/uL (152-406) 04/23/18 05:12 PT 11.7 SECONDS (9.5-12.5) 04/22/18 14:58 INR 0.99 04/22/18 14:58 APTT 30.3 SECONDS (24.3-36.9) 04/22/18 14:58 Sodium 140 mEq/L (135-145) 04/23/18 05:12 Potassium 3.7 mEq/L (3.6-5.0) 04/23/18 05:12 BUN 15 mg/dL (6-20) 04/23/18 05:12 Creatinine 0.72 mg/dL (0.44-1.00) 04/23/18 05:12 Glucose 109 mg/dL (65-120) 04/23/18 05:12 Magnesium 2.1 mg/dL (1.8-2.5) 04/22/18 14:58 Total Bilirubin 0.2 mg/dL (0.3-1.2) L 04/22/18 14:58 AST 26 IU/L (10-42) 04/22/18 14:58 ALT 22 IU/L (10-60) 04/22/18 14:58 Alkaline Phosphatase 99 IU/L (42-121) 04/22/18 14:58 Troponin I < 0.03 ng/mL (<0.03) 04/22/18 22:55 B-Natriuretic Peptide 138 pg/ml (<=100) H 04/22/18 15:18 Triglycerides 126 mg/dL (35-160) 04/22/18 18:48 Cholesterol 227 mg/dL (<200) H 04/22/18 18:48 HDL Cholesterol 53 mg/dL (29-89) 04/22/18 18:48 Cholesterol/HDL Ratio 4.28 04/22/18 18:48 Home Medications: Levothyroxine [Synthroid*] 50 mcg PO [id number] 01/18/15 Losartan/Hydrochlorothiazide [Losartan-Hctz 100-25 mg Tab] 1 each PO DAILY 01/18 Metoprolol Succinate [Toprol Xl*] 50 mg PO BID 01/18/15 Gabapentin 1 cap PO TID 04/23/18 Montelukast [Singulair*] 10 mg PO DAILY 04/23/18 Ranitidine [Zantac*] 1 tab PO DAILY 04/23/18 Amlodipine [Norvasc*] 5 mg PO DAILY tab 04/24/18 Aspirin Enteric Coated [Ecotrin*] 325 mg PO DAILY tab 04/24/18 Atorvastatin Calcium [Lipitor*] 20 mg PO BEDTIME tab 04/24/18 Enoxaparin Sodium [Lovenox 30 MG INJ*] 30 mg SQ DAILY 5 PM syr 04/24/18
[2018-04-24 17:15] VITALS: BP 168/82; TEMP 97.3
[2018-04-24] MEDS ORDERED: ATORVASTATIN 20 MG TAB PO SCH (21:00)
== END 2018-04-24 17:01 | DRG 65 ==
LOC: ER 14:29 → ERHOLD 17:11 → 2ND 19:27
PROVIDERS: ADMIT Internal Medicine; ATTEND Internal Medicine
DX: I63.9 Cerebral infarction, unspecified (principal); G81.94 Hemiplegia, unspecified affecting left nondominant side; R29.702 NIHSS score 2; I10 Essential (primary) hypertension; E78.5 Hyperlipidemia, unspecified; E03.9 Hypothyroidism, unspecified; K21.9 Gastro-esophageal reflux disease without esophagitis; Z88.0 Allergy status to penicillin
CPT/HCPCS: 36415; 70450; 70551; 71045; 80048; 80061; 80076; 81003; 82550; 82553; 82962; 83735; 83880; 84484; 85025; 85610; 85652; 85730; 86140; 87086; 87088; 93005; 93306; 93880; 96365; 97163; 99285; J1650; J7030

== ENCOUNTER 2018-04-24 11:09 | Inpatient (IN) | payer OTHER, MEDICARE ==
[2018-04-24 17:33] VITALS: BMI 30.4
[2018-04-24] MEDS ORDERED: ENOXAPARIN 30 MG/0.3 ML SQ SCH (18:00)
[2018-04-24] MEDS ORDERED: METOPROLOL XL 50 MG TAB PO SCH (18:00)
[2018-04-24 19:01] LABS: Urine Appearance CLEAR; Urine Bilirubin NEGATIVE (NEG); Urine Blood NEGATIVE (NEG); Urine Color YELLOW; Urine Glucose NEGATIVE (NEG); Urine Protein NEGATIVE (NEG)
[2018-04-24] MEDS: METOPROLOL XL 50 MG TAB PO SCH (19:09)
[2018-04-24 19:25] LABS: Urine Bacteria <20 /HPF (<20); Urine RBC <5 /HPF (NONE SEEN)
[2018-04-24 19:26] LABS: Urine Culture Reflex Order NOT NEEDED
[2018-04-24] MEDS: GABAPENTIN 400 MG CAP PO SCH (20:32)
[2018-04-24] MEDS: ATORVASTATIN 40 MG TAB PO SCH (20:32)
[2018-04-24] MEDS: ACETAMINOPHEN 325 MG TABLET PO PRN (21:05)
[2018-04-25] MEDS: LEVOTHYROXINE SOD 0.05 MG TABLET PO SCH (05:41)
[2018-04-25] MEDS: METOPROLOL XL 50 MG TAB PO SCH ×2 (05:41→17:28)
[2018-04-25] MEDS: ACETAMINOPHEN 325 MG TABLET PO PRN (05:49)
[2018-04-25 06:03] LABS: Absolute Lymphocytes (CBC) 1.7 K/uL (0.7-4.9); Absolute Monocytes 0.5 K/uL (0.1-1.3); Absolute Neutrophil 5.2 K/uL (1.8-8.0); Basophils % 0.7 % (0-1.3); Eosinophils % 6.1 % (0-4.4); Hematocrit 40.9 % (36.0-45.0); Lymphocytes % 21.4 % (15.3-44.8); MCH 27.1 pg (27.0-35.0); MCV 81.3 fL (80-100); MPV 9.9 fL (7.6-11.3); RBC Red Blood Cell Count 5.03 M/uL (3.86-4.86)
[2018-04-25 06:07] LABS: Albumin 3.8 g/dL (3.2-5.5); BUN Blood Urea Nitrogen 19 mg/dL (6-20); Bicarbonate 26 mEq/L (21-31); Glucose Level 116 mg/dL (65-120); Potassium 3.9 mEq/L (3.6-5.0); Prealbumin 18.9 mg/dl (18-38); Sodium Level 137 mEq/L (135-145)
[2018-04-25] MEDS: ASPIRIN EC 325 MG TABLET PO SCH (06:59)
[2018-04-25] MEDS: RANITIDINE 150 MG TABLET PO SCH (06:59)
[2018-04-25] MEDS: MONTELUKAST 10 MG TAB PO SCH (06:59)
[2018-04-25] MEDS: LOSARTAN/HCTZ 50-12.5 PO SCH (07:00)
[2018-04-25] MEDS ORDERED: AMLODIPINE 5 MG TAB PO SCH (08:00)
[2018-04-25] MEDS: GABAPENTIN 400 MG CAP PO SCH ×3 (08:54→20:08)
--- NOTE | 2018-04-25 09:42 | P.RH.PN ---
Estimated Length of Stay: 9 Expected Discharge Date: 05/03/18 Discharge Disposition Plan: Home Family Support: Yes [employer] Goal: Mobility, Transfers, Self Care Vital Signs: Last Vital Signs Temp 96.4 F L 04/25/18 07:15 Pulse 56 04/25/18 07:15 Resp 16 04/25/18 07:15 BP 184/85 H 04/25/18 07:15 Pulse Ox 98 04/25/18 07:15 Laboratory: Laboratory Last Values WBC 8.0 K/uL (4.3-10.9) 04/25/18 05:32 RBC 5.03 M/uL (3.86-4.86) H 04/25/18 05:32 Hgb 13.6 g/dL (12.0-15.0) 04/25/18 05:32 Hct 40.9 % (36.0-45.0) 04/25/18 05:32 MCV 81.3 fL (80-100) 04/25/18 05:32 MCH 27.1 pg (27.0-35.0) 04/25/18 05:32 MCHC 33.4 g/dL (32.0-36.0) 04/25/18 05:32 RDW 14.7 % (12.1-15.2) 04/25/18 05:32 Plt Count 225 K/uL (152-406) 04/25/18 05:32 MPV 9.9 fL (7.6-11.3) 04/25/18 05:32 Neutrophils % 65.8 % (41.7-73.7) 04/25/18 05:32 Lymphocytes % 21.4 % (15.3-44.8) 04/25/18 05:32 Monocytes % 6.0 % (3.3-12.3) 04/25/18 05:32 Eosinophils % 6.1 % (0-4.4) H 04/25/18 05:32 Basophils % 0.7 % (0-1.3) 04/25/18 05:32 Absolute Neutrophils 5.2 K/uL (1.8-8.0) 04/25/18 05:32 Absolute Lymphocytes 1.7 K/uL (0.7-4.9) 04/25/18 05:32 Absolute Monocytes 0.5 K/uL (0.1-1.3) 04/25/18 05:32 Absolute Eosinophils 0.5 K/uL (0-0.5) 04/25/18 05:32 Absolute Basophils 0.1 K/uL (0-0.5) 04/25/18 05:32 Sodium 137 mEq/L (135-145) 04/25/18 05:32 Potassium 3.9 mEq/L (3.6-5.0) 04/25/18 05:32 Chloride 103 mEq/L (101-111) 04/25/18 05:32 Carbon Dioxide 26 mEq/L (21-31) 04/25/18 05:32 BUN 19 mg/dL (6-20) 04/25/18 05:32 Creatinine 0.59 mg/dL (0.44-1.00) 04/25/18 05:32 Estimated GFR > 90 mL/min (=/>90) 04/25/18 05:32 Glucose 116 mg/dL (65-120) 04/25/18 05:32 Calcium 9.3 mg/dL (8.5-10.5) 04/25/18 05:32 Magnesium 2.0 mg/dL (1.8-2.5) 04/25/18 05:32 Albumin 3.8 g/dL (3.2-5.5) 04/25/18 05:32 Prealbumin 18.9 mg/dl (18-38) 04/25/18 05:32 Urine Color Yellow 04/24/18 18:21 Urine Appearance Clear 04/24/18 18:21 Urine pH 6.0 (5.0-7.0) 04/24/18 18:21 Ur Specific [place] 1.010 (1.005-1.030) 04/24/18 18:21 Urine Ketones Negative (NEG) 04/24/18 18:21 Urine Blood Negative (NEG) 04/24/18 18:21 Urine Nitrite Negative (NEG) 04/24/18 18:21 Urine Bilirubin Negative (NEG) 04/24/18 18:21 Urine Urobilinogen 1.0 mg/dL (0.2-1.0) 04/24/18 18:21 Ur Leukocyte Esterase Negative (NEG) 04/24/18 18:21 Urine RBC <5 /HPF (NONE SEEN) 04/24/18 18:21 Urine WBC <5 /HPF (<5) 04/24/18 18:21 Ur Squamous Epith Cells <5 /HPF (NONE SEEN) 04/24/18 18:21 Urine Bacteria <20 /HPF (<20) 04/24/18 18:21 Urine Culture Reflexed Not needed 04/24/18 18:21 Urine Glucose Negative (NEG) 04/24/18 18:21 Urine Total Protein Negative (NEG) 04/24/18 18:21 Weight: 166 lb 4 oz Wound Present: No Physician Update: She is doing very well with physical and occupational therapy. Her blood work is essentially normal. She will get a bed side swallow evaluation by speech therapy today. She will benefit from the 9 days of therapy to improve balance, coordination and gait. Summary: Patient's care plan and intermediate card tender goals have been reviewed and revised as necessary. Please see the Rehabilitation Signature page for all necessary signatures.
--- NOTE | 2018-04-25 11:34 | FAST ---
SHIFT START DATE/TIME: 04/25/2018 07:00 (CDT) SHIFT END DATE/TIME: 04/25/2018 19:00 (CDT) NAME RADHA HAAS DATE OF : 1940 DATE OF ADMISSION: 04/24/2018 16:51 (CDT) PHONE: AGE: 77 [facility]# [id number] GENDER: Female ENCOUNTER PHYSICIAN: Dr. Jack Marsh M.D. ADMISSION DIAGNOSIS: - Stroke 01 - Left Body (Right Brain) (01.1) ACUTE THALAMIC INFARCT. EATING: EATING - STEP 1: Does the patient require assistance when eating? No. EATING - SCORE: 7-IND GROOMING: Oral care Wash, rinse, and dry face Wash, rinse, and dry hands GROOMING - STEP 1: Does the patient require assistance when grooming? No. GROOMING - SCORE: 7-IND BATHING: Activity did not occur on this shift BATHING - SCORE: 0-UNK DRESSING - UPPER BODY: Bra (three steps) Sweater (four steps) ARTICLES SCORE Total number of steps: 7 DRESSING - UPPER BODY - STEP 1: Does the patient require help when dressing above the waist? No. DRESSING - UPPER BODY - SCORE: 7-IND DRESSING - LOWER BODY: Sock - Left foot (one step) Sock - Right foot (one step) Underwear (three steps) ARTICLES SCORE Total number of steps: 5 DRESSING - LOWER BODY - STEP 1: Does the patient require help when dressing below the waist? Yes. DRESSING - LOWER BODY - STEP 2: Does the patient require the assistance of a helper? Yes. DRESSING - LOWER BODY - STEP 3: Does the helper touch the patient while dressing? No. DRESSING - LOWER BODY - SCORE: 5-SUP TOILETING: TOILETING - STEP 1: Does the patient require assistance with toileting? Yes. TOILETING - STEP 2: Does the patient require the assistance of a helper? Yes. TOILETING - STEP 3: How much assistance does the patient require from the helper? Only supervision TOILETING - SCORE: 5-SUP BLADDER MANAGEMENT: BLADDER MANAGEMENT - STEP 1: Does the patient control the bladder completely and intentionally without equipment or devices or med ications, and is always continent? Yes. BLADDER MANAGEMENT - SCORE: 7-IND BLADDER MANAGEMENT - FREQUENCY OF ACCIDENTS: BLADDER MANAGEMENT(FA) - STEP 1: How many accidents has the patient had during the current shift? 0 BOWEL MANAGEMENT: BOWEL MANAGEMENT - STEP 1: Does the patient control bowels completely and intentionally without equipment devices or medications AND is always continent? Yes. BOWEL MANAGEMENT - SCORE: 7-IND BOWEL MANAGEMENT - FREQUENCY OF ACCIDENTS: BOWEL MANAGEMENT(FA) - STEP 1: How many accidents has the patient had during the current shift? 0 TRANSFERS: BED, CHAIR, WHEELCHAIR: TRANSFERS: BED, CHAIR, WHEELCHAIR - STEP 1: Does the patient require assistance with bed, chair, or wheelchair transfers? Yes. TRANSFERS: BED, CHAIR, WHEELCHAIR - STEP 2: Does the patient require the assistance of a helper? No. Patient only requires an assistive device fo r bed, chair, wheelchair transfers such as a sliding board, grab bar, or brace, OR s/he takes more th an reasonable time, OR there is a safety concern when s/he performs the transfers TRANSFERS: BED, CHAIR, WHEELCHAIR - SCORE: 6-VIVEK TRANSFERS: TOILET: TRANSFERS: TOILET - STEP 1: Does the patient require assistance with toilet transfers? Yes. TRANSFERS: TOILET - STEP 2: Does the patient require the assistance of a helper? No. Patient only requires an assistive device strange ch as a grab bar or special seat, OR s/he takes more than reasonable time to perform toilet transfers , OR there is a safety concern when s/he performs toilet transfers. TRANSFERS: TOILET - SCORE: 6-VIVEK TRANSFERS: SHOWER: Activity did not occur on this shift TRANSFERS: SHOWER - SCORE: 0-UNK TRANSFERS: TUB: Activity did not occur on this shift TRANSFERS: TUB - SCORE: 0-UNK LOCOMOTION: WALK: Activity did not occur on this shift LOCOMOTION: WALK - SCORE: 0-UNK LOCOMOTION: WHEELCHAIR: Activity did not occur on this shift LOCOMOTION: WHEELCHAIR - SCORE: 0-UNK COMPREHENSION: COMPREHENSION - SCORE: 0-UNK EXPRESSION EXPRESSION - SCORE: 0-UNK SOCIAL INTERACTION: SOCIAL INTERACTION - SCORE: 0-UNK PROBLEM SOLVING: PROBLEM SOLVING - SCORE: 0-UNK MEMORY: MEMORY - SCORE: 0-UNK SIGNATURE PANEL: The following modified sections: Eating - Score, Grooming - Score, Bathing - Score, Dressing - Upper Body - Score, Dressing - Lower Body - Score, Toileting - Score, Bladder Management - Score, Bowel Man agement - Score, Transfers: Bed, Chair, Wheelchair - Score, Transfers: Toilet - Score, Transfers: Yadi wer - Score, Transfers: Tub - Score, Locomotion: Walk - Score, Locomotion: Wheelchair - Score, Compre hension - Score, Expression - Score, Social Interaction - Score, Problem Solving - Score, Memory - Sc ore were [electronically] signed by Katrin White CNA on SatApr 25 2018 10:33:50 T-0500 (Centra l Daylight Time)
--- NOTE | 2018-04-25 15:52 | FAST ---
ENCOUNTER DATE AND TIME: 04/25/2018 08:00 (CDT) NAME RADHA HAAS DATE OF : 1940 DATE OF ADMISSION: 04/24/2018 16:51 (CDT) PHONE: AGE: 77 N# [id number] GENDER: Female ENCOUNTER PHYSICIAN: Dr. Jack Marsh M.D. ADMISSION DIAGNOSIS: - Stroke 01 - Left Body (Right Brain) (01.1) ACUTE THALAMIC INFARCT. EATING: Activity did not occur on this shift EATING - SCORE: 0-UNK GROOMING: Activity did not occur on this shift GROOMING - SCORE: 0-UNK BATHING: Activity did not occur on this shift BATHING - SCORE: 0-UNK DRESSING - UPPER BODY: Activity did not occur on this shift Patient is not dressing in public clothing ARTICLES SCORE Total number of steps: 0 DRESSING - UPPER BODY - SCORE: 0-UNK DRESSING - LOWER BODY: Activity did not occur on this shift Patient is not dressing in public clothing ARTICLES SCORE Total number of steps: 0 DRESSING - LOWER BODY - SCORE: 0-UNK TOILETING: Activity did not occur on this shift TOILETING - SCORE: 0-UNK BLADDER MANAGEMENT: Activity did not occur on this shift BLADDER MANAGEMENT - SCORE: 7-IND BOWEL MANAGEMENT: Activity did not occur on this shift BOWEL MANAGEMENT - SCORE: 7-IND TRANSFERS: BED, CHAIR, WHEELCHAIR: TRANSFERS: BED, CHAIR, WHEELCHAIR - STEP 1: Does the patient require assistance with bed, chair, or wheelchair transfers? Yes. TRANSFERS: BED, CHAIR, WHEELCHAIR - STEP 2: Does the patient require the assistance of a helper? Yes. TRANSFERS: BED, CHAIR, WHEELCHAIR - STEP 3: How much assistance does the patient require from the helper? Only supervision TRANSFERS: BED, CHAIR, WHEELCHAIR - SCORE: 5-SUP TRANSFERS: TOILET: Activity did not occur on this shift TRANSFERS: TOILET - SCORE: 0-UNK TRANSFERS: SHOWER: Activity did not occur on this shift TRANSFERS: SHOWER - SCORE: 0-UNK TRANSFERS: TUB: Activity did not occur on this shift TRANSFERS: TUB - SCORE: 0-UNK LOCOMOTION: WALK: LOCOMOTION: WALK - STEP 1: Does the patient need help to walk 150 feet? Yes. LOCOMOTION: WALK - STEP 2: How much assistance does the patient require to walk a minimum of 150 feet? Only incidental help such as contact guarding or steadying LOCOMOTION: WALK - SCORE: 4-MIN LOCOMOTION: WHEELCHAIR: Activity did not occur on this shift LOCOMOTION: WHEELCHAIR - SCORE: 0-UNK LOCOMOTION: STAIRS: Activity did not occur on this shift LOCOMOTION: STAIRS - SCORE: 0-UNK COMPREHENSION: COMPREHENSION - SCORE: 0-UNK EXPRESSION EXPRESSION - SCORE: 0-UNK SOCIAL INTERACTION: SOCIAL INTERACTION - SCORE: 0-UNK PROBLEM SOLVING: PROBLEM SOLVING - SCORE: 0-UNK MEMORY: MEMORY - SCORE: 0-UNK SIGNATURE PANEL: The following modified sections: Transfers: Bed, Chair, Wheelchair - Score, Transfers: Toilet - Score , Locomotion: Walk - Score, Locomotion: Wheelchair - Score, Locomotion: Stairs - Score were [electron ically] signed by Casimiro Wong PTA on SatApr 25 2018 14:52:38 GMT-0500 (Central Daylight Time)
[2018-04-25] MEDS: ENOXAPARIN 30 MG/0.3 ML SQ SCH (16:32)
--- NOTE | 2018-04-25 16:58 | P.PN ---
Subjective Date of Service: 04/25/18 Chief Complaint: WALKS BUT STILL SOME UNSTEADINESS. Subjective: Improving SHE IS STABLE , FEELING BETTER. ABLE TO AMBULATE. Review of Systems 10-point ROS is otherwise unremarkable Neurological: Incoordination Physical Examination - Vital Signs Temperature: 96.4 F Blood Pressure: 164/72 Pulse: 57 Respirations: 16 Pulse Ox (%): 98 - Physical Exam General: Alert, In no apparent distress HEENT: Atraumatic, PERRLA, EOMI Neck: Supple, JVD not distended Respiratory: Clear to auscultation bilaterally, Normal air movement Cardiovascular: Regular rate/rhythm, Normal S1 S2 Gastrointestinal: Normal bowel sounds, No tenderness Musculoskeletal: No tenderness Integumentary: No rashes Neurological: Normal strength at 5/5 x4 extr, Abnormal gait (SOME UNSTEADINESS FROM CVA.) Lymphatics: No axilla or inguinal lymphadenopathy - Studies Laboratory Data (last 24 hrs) 04/25/18 05:32: Sodium 137, Potassium 3.9, BUN 19, Creatinine 0.59, Glucose 116 , Magnesium 2.0 04/25/18 05:32: WBC 8.0, Hgb 13.6, Hct 40.9, Plt Count 225 Medications List Reviewed: Yes Assessment And Plan - Current Problems (Diagnosis) (1) Thalamic infarct, acute Onset Date: 04/23/18 Current Visit: No Status: Acute Plan: PT DAILY ASPIRIN DAILY BP CONTROL STATINS.
--- NOTE | 2018-04-25 17:41 | FAST ---
ENCOUNTER DATE AND TIME: 04/25/2018 08:00 (CDT) NAME RADHA HAAS DATE OF : 1940 DATE OF ADMISSION: 04/24/2018 16:51 (CDT) PHONE: AGE: 77 N# [id number] GENDER: Female ENCOUNTER PHYSICIAN: Dr. Jack Marsh M.D. ADMISSION DIAGNOSIS: - Stroke 01 - Left Body (Right Brain) (01.1) ACUTE THALAMIC INFARCT. EATING: Activity did not occur on this shift EATING - SCORE: 0-UNK GROOMING: Activity did not occur on this shift GROOMING - SCORE: 0-UNK BATHING: Activity did not occur on this shift BATHING - SCORE: 0-UNK DRESSING - UPPER BODY: Activity did not occur on this shift Patient is not dressing in public clothing ARTICLES SCORE Total number of steps: 0 DRESSING - UPPER BODY - SCORE: 0-UNK DRESSING - LOWER BODY: Activity did not occur on this shift Patient is not dressing in public clothing ARTICLES SCORE Total number of steps: 0 DRESSING - LOWER BODY - SCORE: 0-UNK TOILETING: Activity did not occur on this shift TOILETING - SCORE: 0-UNK BLADDER MANAGEMENT: Activity did not occur on this shift BLADDER MANAGEMENT - SCORE: 7-IND BOWEL MANAGEMENT: Activity did not occur on this shift BOWEL MANAGEMENT - SCORE: 7-IND TRANSFERS: BED, CHAIR, WHEELCHAIR: Activity did not occur on this shift TRANSFERS: BED, CHAIR, WHEELCHAIR - SCORE: 0-UNK TRANSFERS: TOILET: Activity did not occur on this shift TRANSFERS: TOILET - SCORE: 0-UNK TRANSFERS: SHOWER: Activity did not occur on this shift TRANSFERS: SHOWER - SCORE: 0-UNK TRANSFERS: TUB: Activity did not occur on this shift TRANSFERS: TUB - SCORE: 0-UNK LOCOMOTION: WALK: Activity did not occur on this shift LOCOMOTION: WALK - SCORE: 0-UNK LOCOMOTION: WHEELCHAIR: Activity did not occur on this shift LOCOMOTION: WHEELCHAIR - SCORE: 0-UNK LOCOMOTION: STAIRS: Activity did not occur on this shift LOCOMOTION: STAIRS - SCORE: 0-UNK COMPREHENSION: COMPREHENSION - STEP 1: Does the patient require help to understand complex and abstract ideas (such as current events, finan jasbir, discharge planning, medical issues, relationships, etc)? No. COMPREHENSION - STEP 2: Does the patient need extra time, require an assistive device (such as glasses, hearing aids, or an a ugmentative communication system), OR does s/he have mild difficulty expressing complex and abstract ideas (including mild dysarthria or mild word-finding problems)? No. COMPREHENSION - SCORE: 7-IND EXPRESSION EXPRESSION - STEP 1: Does the patient require help expressing complex and abstract ideas (such as current events, finances , discharge planning, medical issues, relationships, etc)? No. EXPRESSION - STEP 2: Does the patient need extra time, require an assistive device (such as augmentive communication syste m or a communication board), OR does s/he have mild difficulty expressing complex and abstract ideas (including mild dysarthria or mild word-find problems)? No. EXPRESSION - SCORE: 7-IND SOCIAL INTERACTION: SOCIAL INTERACTION - STEP 1: Does the patient require a helper to interact with others in social and therapeutic situations? No. SOCIAL INTERACTION - STEP 2: Does the patient need extra time in social situations, OR does s/he interact with staff, other patien ts, and family members ONLY in structured environments, OR does s/he require medication for social in teraction? No. SOCIAL INTERACTION - SCORE: 7-IND PROBLEM SOLVING: PROBLEM SOLVING - STEP 1: Does the patient need help to solve complex problems such as managing a checking account or confronti ng interpersonal problems? No. PROBLEM SOLVING - STEP 2: Does the patient require extra time to make decisions or solve problems, OR does s/he have slight dif ficulty reading, initiating, or self-correcting in unfamiliar situations? No. PROBLEM SOLVING - SCORE: 7-IND MEMORY: MEMORY - STEP 1: Does the patient need help to remember frequently encountered people, daily routines, and executing r equests? No. MEMORY - STEP 2: Does the patient have slight difficulty recognizing frequently encountered people, daily routines, or executing requests without the need for repetition or using self-initiated or environmental cues to remember? No. MEMORY - SCORE: 7-IND SIGNATURE PANEL: The following modified sections: Comprehension - Score, Expression - Score, Social Interaction - Scor e, Problem Solving - Score, Memory - Score were [electronically] signed by ARIE Meléndez on Sat 16:41:36 T-0500 (Central Daylight Time)
--- NOTE | 2018-04-25 17:57 | FAST ---
ENCOUNTER DATE AND TIME: 04/25/2018 08:00 (CDT) NAME RADHA HAAS DATE OF : 1940 DATE OF ADMISSION: 04/24/2018 16:51 (CDT) PHONE: AGE: 77 N# [id number] GENDER: Female ENCOUNTER PHYSICIAN: Dr. Jack Marsh M.D. ADMISSION DIAGNOSIS: - Stroke 01 - Left Body (Right Brain) (01.1) ACUTE THALAMIC INFARCT. EATING: Activity did not occur on this shift EATING - SCORE: 0-UNK GROOMING: Comb/brush hair Oral care Wash, rinse, and dry face Wash, rinse, and dry hands GROOMING - STEP 1: Does the patient require assistance when grooming? No. GROOMING - SCORE: 7-IND BATHING: Abdomen Buttocks Chest Left arm Left lower leg and foot Left upper leg Perineal area Right arm Right lower leg and foot Right upper leg BATHING - STEP 1: Does the patient require assistance when bathing? Yes. BATHING - STEP 2: Does the patient require the assistance of a helper? Yes. BATHING - STEP 3: How much assistance does the patient require from the helper? Only supervision, cuing, coaxing, instr uctions, encouragement BATHING - SCORE: 5-SUP DRESSING - UPPER BODY: Bra (three steps) T-shirt/pullover shirt (four steps) ARTICLES SCORE Total number of steps: 7 DRESSING - UPPER BODY - STEP 1: Does the patient require help when dressing above the waist? Yes. DRESSING - UPPER BODY - STEP 2: Does the patient require the assistance of a helper? Yes. DRESSING - UPPER BODY - STEP 3: Does the helper touch the patient while dressing? No. DRESSING - UPPER BODY - SCORE: 5-SUP DRESSING - LOWER BODY: Elastic waist pants (three steps) Slip-on shoe - Left foot (one step) Slip-on shoe - Right foot (one step) Sock - Left foot (one step) Sock - Right foot (one step) Underwear (three steps) ARTICLES SCORE Total number of steps: 10 DRESSING - LOWER BODY - STEP 1: Does the patient require help when dressing below the waist? Yes. DRESSING - LOWER BODY - STEP 2: Does the patient require the assistance of a helper? Yes. DRESSING - LOWER BODY - STEP 3: Does the helper touch the patient while dressing? No. DRESSING - LOWER BODY - SCORE: 5-SUP TOILETING: TOILETING - STEP 1: Does the patient require assistance with toileting? Yes. TOILETING - STEP 2: Does the patient require the assistance of a helper? Yes. TOILETING - STEP 3: How much assistance does the patient require from the helper? Only supervision TOILETING - SCORE: 5-SUP BLADDER MANAGEMENT: Activity did not occur on this shift BLADDER MANAGEMENT - SCORE: 7-IND BOWEL MANAGEMENT: Activity did not occur on this shift BOWEL MANAGEMENT - SCORE: 7-IND TRANSFERS: BED, CHAIR, WHEELCHAIR: Activity did not occur on this shift TRANSFERS: BED, CHAIR, WHEELCHAIR - SCORE: 0-UNK TRANSFERS: TOILET: TRANSFERS: TOILET - STEP 1: Does the patient require assistance with toilet transfers? Yes. TRANSFERS: TOILET - STEP 2: Does the patient require the assistance of a helper? Yes. TRANSFERS: TOILET - STEP 3: How much assistance does the patient require from the helper? Only supervision, cuing, coaxing, OR he lp to set out transfer equipment or to lock brakes and/or lift foot rests TRANSFERS: TOILET - SCORE: 5-SUP TRANSFERS: SHOWER: TRANSFERS: SHOWER - STEP 1: Does the patient require assistance with shower transfers? Yes. TRANSFERS: SHOWER - STEP 2: Does the patient require the assistance of a helper? Yes. TRANSFERS: SHOWER - STEP 3: How much assistance does the patient require from the helper? Only supervision, cuing, coaxing, or he lp to set out transfer equipment or to lock brakes and/or lift foot rests TRANSFERS: SHOWER - SCORE: 5-SUP TRANSFERS: TUB: Activity did not occur on this shift TRANSFERS: TUB - SCORE: 0-UNK LOCOMOTION: WALK: Activity did not occur on this shift LOCOMOTION: WALK - SCORE: 0-UNK LOCOMOTION: WHEELCHAIR: Activity did not occur on this shift LOCOMOTION: WHEELCHAIR - SCORE: 0-UNK LOCOMOTION: STAIRS: Activity did not occur on this shift LOCOMOTION: STAIRS - SCORE: 0-UNK COMPREHENSION: COMPREHENSION: TYPE: Both COMPREHENSION - STEP 1: Does the patient require help to understand complex and abstract ideas (such as current events, finan jasbir, discharge planning, medical issues, relationships, etc)? No. COMPREHENSION - STEP 2: Does the patient need extra time, require an assistive device (such as glasses, hearing aids, or an a ugmentative communication system), OR does s/he have mild difficulty expressing complex and abstract ideas (including mild dysarthria or mild word-finding problems)? No. COMPREHENSION - SCORE: 7-IND EXPRESSION EXPRESSION: TYPE: Both EXPRESSION - STEP 1: Does the patient require help expressing complex and abstract ideas (such as current events, finances , discharge planning, medical issues, relationships, etc)? No. EXPRESSION - STEP 2: Does the patient need extra time, require an assistive device (such as augmentive communication syste m or a communication board), OR does s/he have mild difficulty expressing complex and abstract ideas (including mild dysarthria or mild word-find problems)? No. EXPRESSION - SCORE: 7-IND SOCIAL INTERACTION: SOCIAL INTERACTION - STEP 1: Does the patient require a helper to interact with others in social and therapeutic situations? No. SOCIAL INTERACTION - STEP 2: Does the patient need extra time in social situations, OR does s/he interact with staff, other patien ts, and family members ONLY in structured environments, OR does s/he require medication for social in teraction? No. SOCIAL INTERACTION - SCORE: 7-IND PROBLEM SOLVING: PROBLEM SOLVING - STEP 1: Does the patient need help to solve complex problems such as managing a checking account or confronti ng interpersonal problems? No. PROBLEM SOLVING - STEP 2: Does the patient require extra time to make decisions or solve problems, OR does s/he have slight dif ficulty reading, initiating, or self-correcting in unfamiliar situations? No. PROBLEM SOLVING - SCORE: 7-IND MEMORY: MEMORY - STEP 1: Does the patient need help to remember frequently encountered people, daily routines, and executing r equests? No. MEMORY - STEP 2: Does the patient have slight difficulty recognizing frequently encountered people, daily routines, or executing requests without the need for repetition or using self-initiated or environmental cues to remember? No. MEMORY - SCORE: 7-IND SIGNATURE PANEL: The following modified sections: Eating - Score, Grooming - Score, Bathing - Score, Dressing - Upper Body - Score, Dressing - Lower Body - Score, Toileting - Score, Transfers: Bed, Chair, Wheelchair - S core, Transfers: Toilet - Score, Transfers: Tub - Score, Transfers: Shower - Score, Comprehension - S core, Expression - Score, Social Interaction - Score, Problem Solving - Score, Memory - Score were [e lectronically] signed by Angelica Núñez OT on SatApr 25 2018 16:57:47 T-0500 ([facility] Daylight T sveta)
[2018-04-25] MEDS: ATORVASTATIN 40 MG TAB PO SCH (20:08)
--- NOTE | 2018-04-26 03:11 | FAST ---
SHIFT START DATE/TIME: 04/25/2018 19:00 (CDT) SHIFT END DATE/TIME: 04/26/2018 07:00 (CDT) NAME RADHA HAAS DATE OF : 1940 DATE OF ADMISSION: 04/24/2018 16:51 (CDT) PHONE: AGE: 77 [facility] [place]# [id number] GENDER: Female ENCOUNTER PHYSICIAN: Dr. Jack Marsh M.D. ADMISSION DIAGNOSIS: - Stroke 01 - Left Body (Right Brain) (01.1) ACUTE THALAMIC INFARCT. EATING: Activity did not occur on this shift EATING - SCORE: 0-UNK GROOMING: Oral care Wash, rinse, and dry face Wash, rinse, and dry hands GROOMING - STEP 1: Does the patient require assistance when grooming? No. GROOMING - SCORE: 7-IND BATHING: Activity did not occur on this shift BATHING - SCORE: 0-UNK DRESSING - UPPER BODY: Patient is not dressing in public clothing ARTICLES SCORE Total number of steps: 0 DRESSING - UPPER BODY - SCORE: 0-UNK DRESSING - LOWER BODY: Patient is not dressing in public clothing ARTICLES SCORE Total number of steps: 0 DRESSING - LOWER BODY - SCORE: 0-UNK TOILETING: TOILETING - STEP 1: Does the patient require assistance with toileting? Yes. TOILETING - STEP 2: Does the patient require the assistance of a helper? Yes. TOILETING - STEP 3: How much assistance does the patient require from the helper? Only supervision TOILETING - SCORE: 5-SUP BLADDER MANAGEMENT: BLADDER MANAGEMENT - STEP 1: Does the patient control the bladder completely and intentionally without equipment or devices or med ications, and is always continent? Yes. BLADDER MANAGEMENT - SCORE: 7-IND BOWEL MANAGEMENT: BOWEL MANAGEMENT - STEP 1: Does the patient control bowels completely and intentionally without equipment devices or medications AND is always continent? Yes. BOWEL MANAGEMENT - SCORE: 7-IND TRANSFERS: BED, CHAIR, WHEELCHAIR: TRANSFERS: BED, CHAIR, WHEELCHAIR - STEP 1: Does the patient require assistance with bed, chair, or wheelchair transfers? Yes. TRANSFERS: BED, CHAIR, WHEELCHAIR - STEP 2: Does the patient require the assistance of a helper? No. Patient only requires an assistive device fo r bed, chair, wheelchair transfers such as a sliding board, grab bar, or brace, OR s/he takes more th an reasonable time, OR there is a safety concern when s/he performs the transfers TRANSFERS: BED, CHAIR, WHEELCHAIR - SCORE: 6-VIVEK TRANSFERS: TOILET: TRANSFERS: TOILET - STEP 1: Does the patient require assistance with toilet transfers? Yes. TRANSFERS: TOILET - STEP 2: Does the patient require the assistance of a helper? No. Patient only requires an assistive device strange ch as a grab bar or special seat, OR s/he takes more than reasonable time to perform toilet transfers , OR there is a safety concern when s/he performs toilet transfers. TRANSFERS: TOILET - SCORE: 6-VIVEK TRANSFERS: SHOWER: Activity did not occur on this shift TRANSFERS: SHOWER - SCORE: 0-UNK TRANSFERS: TUB: Activity did not occur on this shift TRANSFERS: TUB - SCORE: 0-UNK LOCOMOTION: WALK: Activity did not occur on this shift LOCOMOTION: WALK - SCORE: 0-UNK LOCOMOTION: WHEELCHAIR: Activity did not occur on this shift LOCOMOTION: WHEELCHAIR - SCORE: 0-UNK COMPREHENSION: COMPREHENSION: TYPE: Both COMPREHENSION - STEP 1: Does the patient require help to understand complex and abstract ideas (such as current events, finan jasbir, discharge planning, medical issues, relationships, etc)? No. COMPREHENSION - STEP 2: Does the patient need extra time, require an assistive device (such as glasses, hearing aids, or an a ugmentative communication system), OR does s/he have mild difficulty expressing complex and abstract ideas (including mild dysarthria or mild word-finding problems)? Yes. COMPREHENSION - SCORE: 6-VIVEK EXPRESSION EXPRESSION - STEP 1: Does the patient require help expressing complex and abstract ideas (such as current events, finances , discharge planning, medical issues, relationships, etc)? No. EXPRESSION - STEP 2: Does the patient need extra time, require an assistive device (such as augmentive communication syste m or a communication board), OR does s/he have mild difficulty expressing complex and abstract ideas (including mild dysarthria or mild word-find problems)? Yes. EXPRESSION - SCORE: 6-VIVEK SOCIAL INTERACTION: SOCIAL INTERACTION - STEP 1: Does the patient require a helper to interact with others in social and therapeutic situations? No. SOCIAL INTERACTION - STEP 2: Does the patient need extra time in social situations, OR does s/he interact with staff, other patien ts, and family members ONLY in structured environments, OR does s/he require medication for social in teraction? No. SOCIAL INTERACTION - SCORE: 7-IND PROBLEM SOLVING: PROBLEM SOLVING - STEP 1: Does the patient need help to solve complex problems such as managing a checking account or confronti ng interpersonal problems? No. PROBLEM SOLVING - STEP 2: Does the patient require extra time to make decisions or solve problems, OR does s/he have slight dif ficulty reading, initiating, or self-correcting in unfamiliar situations? Yes, patient needs extra ti me. PROBLEM SOLVING - SCORE: 6-VIVEK MEMORY: MEMORY - STEP 1: Does the patient need help to remember frequently encountered people, daily routines, and executing r equests? No. MEMORY - STEP 2: Does the patient have slight difficulty recognizing frequently encountered people, daily routines, or executing requests without the need for repetition or using self-initiated or environmental cues to remember? Yes. MEMORY - SCORE: 6-VIVEK
[2018-04-26] MEDS: LEVOTHYROXINE SOD 0.05 MG TABLET PO SCH (05:10)
[2018-04-26] MEDS: METOPROLOL XL 50 MG TAB PO SCH ×2 (05:11→16:59)
[2018-04-26] MEDS: RANITIDINE 150 MG TABLET PO SCH (08:20)
[2018-04-26] MEDS: ASPIRIN EC 325 MG TABLET PO SCH (08:21)
[2018-04-26] MEDS: LOSARTAN/HCTZ 50-12.5 PO SCH (08:21)
[2018-04-26] MEDS: GABAPENTIN 400 MG CAP PO SCH ×3 (08:21→20:08)
[2018-04-26] MEDS: AMLODIPINE 10 MG TAB PO SCH (08:21)
[2018-04-26] MEDS: MONTELUKAST 10 MG TAB PO SCH (08:22)
--- NOTE | 2018-04-26 11:46 | P.PN ---
Subjective Date of Service: 04/26/18 Chief Complaint: WALKS BUT STILL SOME UNSTEADINESS. Subjective: Improving (STILL SOME UNSTEADINESS.) SHE IS STABLE , FEELING BETTER. ABLE TO AMBULATE. Review of Systems 10-point ROS is otherwise unremarkable Physical Examination - Vital Signs Temperature: 96.2 F Blood Pressure: 156/69 Pulse: 57 Respirations: 16 Pulse Ox (%): 98 - Physical Exam General: Alert, In no apparent distress HEENT: Atraumatic, PERRLA, EOMI Neck: Supple, JVD not distended Respiratory: Clear to auscultation bilaterally, Normal air movement Cardiovascular: Regular rate/rhythm, Normal S1 S2 Gastrointestinal: Normal bowel sounds, No tenderness Musculoskeletal: No tenderness Integumentary: No rashes Neurological: Normal speech, Abnormal strength (MILD LLL WEAKNESS. ) Lymphatics: No axilla or inguinal lymphadenopathy - Studies Medications List Reviewed: Yes Assessment And Plan - Current Problems (Diagnosis) (1) Thalamic infarct, acute Onset Date: 04/23/18 Current Visit: No Status: Acute Plan: PT DAILY ASPIRIN DAILY BP CONTROL STATINS. RESUME PT BP MEDS RAISED NO CHANGES.
--- NOTE | 2018-04-26 15:50 | FAST ---
ENCOUNTER DATE AND TIME: 04/26/2018 08:00 (CDT) NAME RADHA HAAS DATE OF : 1940 DATE OF ADMISSION: 04/24/2018 16:51 (CDT) PHONE: AGE: 77 N# [id number] GENDER: Female ENCOUNTER PHYSICIAN: Dr. Jack Marsh M.D. ADMISSION DIAGNOSIS: - Stroke 01 - Left Body (Right Brain) (01.1) ACUTE THALAMIC INFARCT. EATING: Activity did not occur on this shift EATING - SCORE: 0-UNK GROOMING: Activity did not occur on this shift GROOMING - SCORE: 0-UNK BATHING: Activity did not occur on this shift BATHING - SCORE: 0-UNK DRESSING - UPPER BODY: Activity did not occur on this shift Patient is not dressing in public clothing ARTICLES SCORE Total number of steps: 0 DRESSING - UPPER BODY - SCORE: 0-UNK DRESSING - LOWER BODY: Activity did not occur on this shift Patient is not dressing in public clothing ARTICLES SCORE Total number of steps: 0 DRESSING - LOWER BODY - SCORE: 0-UNK TOILETING: Activity did not occur on this shift TOILETING - SCORE: 0-UNK BLADDER MANAGEMENT: Activity did not occur on this shift BLADDER MANAGEMENT - SCORE: 7-IND BOWEL MANAGEMENT: Activity did not occur on this shift BOWEL MANAGEMENT - SCORE: 7-IND TRANSFERS: BED, CHAIR, WHEELCHAIR: TRANSFERS: BED, CHAIR, WHEELCHAIR - STEP 1: Does the patient require assistance with bed, chair, or wheelchair transfers? Yes. TRANSFERS: BED, CHAIR, WHEELCHAIR - STEP 2: Does the patient require the assistance of a helper? Yes. TRANSFERS: BED, CHAIR, WHEELCHAIR - STEP 3: How much assistance does the patient require from the helper? Only supervision TRANSFERS: BED, CHAIR, WHEELCHAIR - SCORE: 5-SUP TRANSFERS: TOILET: Activity did not occur on this shift TRANSFERS: TOILET - SCORE: 0-UNK TRANSFERS: SHOWER: Activity did not occur on this shift TRANSFERS: SHOWER - SCORE: 0-UNK TRANSFERS: TUB: Activity did not occur on this shift TRANSFERS: TUB - SCORE: 0-UNK LOCOMOTION: WALK: LOCOMOTION: WALK - STEP 1: Does the patient need help to walk 150 feet? Yes. LOCOMOTION: WALK - STEP 2: How much assistance does the patient require to walk a minimum of 150 feet? Only incidental help such as contact guarding or steadying LOCOMOTION: WALK - SCORE: 4-MIN LOCOMOTION: WHEELCHAIR: Activity did not occur on this shift LOCOMOTION: WHEELCHAIR - SCORE: 0-UNK LOCOMOTION: STAIRS: LOCOMOTION: STAIRS - STEP 1: Does the patient need help to go up and down 12 to 14 stairs? Yes. LOCOMOTION: STAIRS - STEP 2: How much assistance does the patient need from the helper to go a minimum of 12 to 14 stairs? Only in cidental help such as contact guarding or steadying LOCOMOTION: STAIRS - SCORE: 4-MIN COMPREHENSION: COMPREHENSION - SCORE: 0-UNK EXPRESSION EXPRESSION - SCORE: 0-UNK SOCIAL INTERACTION: SOCIAL INTERACTION - SCORE: 0-UNK PROBLEM SOLVING: PROBLEM SOLVING - SCORE: 0-UNK MEMORY: MEMORY - SCORE: 0-UNK SIGNATURE PANEL: The following modified sections: Transfers: Bed, Chair, Wheelchair - Score, Transfers: Toilet - Score , Locomotion: Walk - Score, Locomotion: Wheelchair - Score, Locomotion: Stairs - Score were [electron bee] signed by Candy Upton PTA on Sat Apr 26 2018 14:50:50 GMT-0500 (Central Daylight Time)
--- NOTE | 2018-04-26 16:34 | FAST ---
SHIFT START DATE/TIME: 04/26/2018 07:00 (CDT) SHIFT END DATE/TIME: 04/26/2018 19:00 (CDT) NAME RADHA HAAS DATE OF : 1940 DATE OF ADMISSION: 04/24/2018 16:51 (CDT) PHONE: AGE: 77 [facility]# [id number] GENDER: Female ENCOUNTER PHYSICIAN: Dr. Jack Marsh M.D. ADMISSION DIAGNOSIS: - Stroke 01 - Left Body (Right Brain) (01.1) ACUTE THALAMIC INFARCT. EATING: EATING - STEP 1: Does the patient require assistance when eating? Yes. EATING - STEP 2: Does the patient require the assistance of a helper? No, patient only requires an assistive device, O R s/he takes more than reasonable time to eat, OR there is a safety concern, OR s/he requires modifie d food consistency EATING - SCORE: 6-VIVEK GROOMING: Comb/brush hair Oral care Wash, rinse, and dry face Wash, rinse, and dry hands GROOMING - STEP 1: Does the patient require assistance when grooming? Yes. GROOMING - STEP 2: Does the patient require the assistance of a helper? Yes. GROOMING - STEP 3: How much assistance does the patient require from the helper? Cuing, coaxing, instructions, or encour agement for completion of grooming GROOMING - SCORE: 5-SUP BATHING: Activity did not occur on this shift BATHING - SCORE: 0-UNK DRESSING - UPPER BODY: Bra (three steps) T-shirt/pullover shirt (four steps) ARTICLES SCORE Total number of steps: 7 DRESSING - UPPER BODY - STEP 1: Does the patient require help when dressing above the waist? Yes. DRESSING - UPPER BODY - STEP 2: Does the patient require the assistance of a helper? Yes. DRESSING - UPPER BODY - STEP 3: Does the helper touch the patient while dressing? No. DRESSING - UPPER BODY - SCORE: 5-SUP DRESSING - LOWER BODY: Elastic waist pants (three steps) Sock - Left foot (one step) Sock - Right foot (one step) Underwear (three steps) ARTICLES SCORE Total number of steps: 8 DRESSING - LOWER BODY - STEP 1: Does the patient require help when dressing below the waist? Yes. DRESSING - LOWER BODY - STEP 2: Does the patient require the assistance of a helper? No. Patient requires an assistive device such as a gelatin powder mixer. OR s/he takes more than reasonable time as s/he dresses the lower body, OR there is a con cern for safety when s/he dresses the lower body DRESSING - LOWER BODY - SCORE: 6-VIVEK TOILETING: TOILETING - STEP 1: Does the patient require assistance with toileting? Yes. TOILETING - STEP 2: Does the patient require the assistance of a helper? Yes. TOILETING - STEP 3: How much assistance does the patient require from the helper? Hands-on assistance from the helper TOILETING - STEP 4: Of the 3 tasks: 1) Adjusting clothing prior to use, 2) Cleansing of perineal area, 3) Adjusting clot zohreh after use; How many tasks does the patient perform WITHOUT assistance of the helper? Three tasks with steadying assistance from the helper TOILETING - SCORE: 4-MIN BLADDER MANAGEMENT: BLADDER MANAGEMENT - STEP 1: Does the patient control the bladder completely and intentionally without equipment or devices or med ications, and is always continent? No. BLADDER MANAGEMENT - STEP 2: Does the patient require the assistance of a helper? No, patient requires and independently uses an a ssistive device, such as a urinal, bedpan, bedside commode, catheter, absorbent pad, or collecting de vice BLADDER MANAGEMENT - SCORE: 6-VIVEK BOWEL MANAGEMENT: Activity did not occur on this shift BOWEL MANAGEMENT - SCORE: 7-IND TRANSFERS: BED, CHAIR, WHEELCHAIR: TRANSFERS: BED, CHAIR, WHEELCHAIR - STEP 1: Does the patient require assistance with bed, chair, or wheelchair transfers? Yes. TRANSFERS: BED, CHAIR, WHEELCHAIR - STEP 2: Does the patient require the assistance of a helper? Yes. TRANSFERS: BED, CHAIR, WHEELCHAIR - STEP 3: How much assistance does the patient require from the helper? Only supervision TRANSFERS: BED, CHAIR, WHEELCHAIR - SCORE: 5-SUP TRANSFERS: TOILET: TRANSFERS: TOILET - STEP 1: Does the patient require assistance with toilet transfers? Yes. TRANSFERS: TOILET - STEP 2: Does the patient require the assistance of a helper? No. Patient only requires an assistive device strange ch as a grab bar or special seat, OR s/he takes more than reasonable time to perform toilet transfers , OR there is a safety concern when s/he performs toilet transfers. TRANSFERS: TOILET - SCORE: 6-VIVEK TRANSFERS: SHOWER: Activity did not occur on this shift TRANSFERS: SHOWER - SCORE: 0-UNK TRANSFERS: TUB: Activity did not occur on this shift TRANSFERS: TUB - SCORE: 0-UNK LOCOMOTION: WALK: Activity did not occur on this shift LOCOMOTION: WALK - SCORE: 0-UNK LOCOMOTION: WHEELCHAIR: Activity did not occur on this shift LOCOMOTION: WHEELCHAIR - SCORE: 0-UNK COMPREHENSION: COMPREHENSION - STEP 1: Does the patient require help to understand complex and abstract ideas (such as current events, finan jasbir, discharge planning, medical issues, relationships, etc)? No. COMPREHENSION - STEP 2: Does the patient need extra time, require an assistive device (such as glasses, hearing aids, or an a ugmentative communication system), OR does s/he have mild difficulty expressing complex and abstract ideas (including mild dysarthria or mild word-finding problems)? No. COMPREHENSION - SCORE: 7-IND EXPRESSION EXPRESSION - SCORE: 0-UNK SOCIAL INTERACTION: SOCIAL INTERACTION - SCORE: 0-UNK PROBLEM SOLVING: PROBLEM SOLVING - SCORE: 0-UNK MEMORY: MEMORY - SCORE: 0-UNK SIGNATURE PANEL: The following modified sections: Eating - Score, Grooming - Score, Bathing - Score, Dressing - Upper Body - Score, Dressing - Lower Body - Score, Toileting - Score, Bladder Management - Score, Bowel Man agement - Score, Transfers: Bed, Chair, Wheelchair - Score, Transfers: Toilet - Score, Transfers: Yadi wer - Score, Transfers: Tub - Score, Locomotion: Walk - Score, Locomotion: Wheelchair - Score, Compre hension - Score, Expression - Score, Social Interaction - Score, Problem Solving - Score, Memory - Sc ore were [electronically] signed by Carlton Hansen on Sat Apr 26 2018 15:35:09 GMT-0500 (Central Daylight Time)
[2018-04-26] MEDS: ENOXAPARIN 30 MG/0.3 ML SQ SCH (16:59)
[2018-04-26] MEDS: ATORVASTATIN 40 MG TAB PO SCH (20:08)
--- NOTE | 2018-04-27 02:35 | FAST ---
SHIFT START DATE/TIME: 04/26/2018 19:00 (CDT) SHIFT END DATE/TIME: 04/27/2018 07:00 (CDT) NAME RADHA HAAS DATE OF : 1940 DATE OF ADMISSION: 04/24/2018 16:51 (CDT) PHONE: AGE: 77 [facility] [place]# [id number] GENDER: Female ENCOUNTER PHYSICIAN: Dr. Jack Marsh M.D. ADMISSION DIAGNOSIS: - Stroke 01 - Left Body (Right Brain) (01.1) ACUTE THALAMIC INFARCT. EATING: Activity did not occur on this shift EATING - SCORE: 0-UNK GROOMING: Wash, rinse, and dry hands GROOMING - STEP 1: Does the patient require assistance when grooming? Yes. GROOMING - STEP 2: Does the patient require the assistance of a helper? Yes. GROOMING - STEP 3: How much assistance does the patient require from the helper? Steadying assistance from the helper GROOMING - SCORE: 4-MIN BATHING: Activity did not occur on this shift BATHING - SCORE: 0-UNK DRESSING - UPPER BODY: Activity did not occur on this shift ARTICLES SCORE Total number of steps: 0 DRESSING - UPPER BODY - SCORE: 0-UNK DRESSING - LOWER BODY: Activity did not occur on this shift ARTICLES SCORE Total number of steps: 0 DRESSING - LOWER BODY - SCORE: 0-UNK TOILETING: TOILETING - STEP 1: Does the patient require assistance with toileting? Yes. TOILETING - STEP 2: Does the patient require the assistance of a helper? Yes. TOILETING - STEP 3: How much assistance does the patient require from the helper? Only supervision TOILETING - SCORE: 5-SUP BLADDER MANAGEMENT: BLADDER MANAGEMENT - STEP 1: Does the patient control the bladder completely and intentionally without equipment or devices or med ications, and is always continent? No. BLADDER MANAGEMENT - STEP 2: Does the patient require the assistance of a helper? Yes. BLADDER MANAGEMENT - STEP 3: How much assistance does the patient require from the helper? Patient requires contact assistance fro m the helper BLADDER MANAGEMENT - STEP 4: How much contact assistance does the patient require from the helper? Patient requires minimal assist ance to maintain an external device - by positioning, and the patient performs 75% or more of bladder management tasks, while the helper provides less than 25% of the assistance to position patient on / off bedpan BLADDER MANAGEMENT - SCORE: 4-MIN BOWEL MANAGEMENT: Activity did not occur on this shift BOWEL MANAGEMENT - SCORE: 7-IND TRANSFERS: BED, CHAIR, WHEELCHAIR: TRANSFERS: BED, CHAIR, WHEELCHAIR - STEP 1: Does the patient require assistance with bed, chair, or wheelchair transfers? Yes. TRANSFERS: BED, CHAIR, WHEELCHAIR - STEP 2: Does the patient require the assistance of a helper? Yes. TRANSFERS: BED, CHAIR, WHEELCHAIR - STEP 3: How much assistance does the patient require from the helper? Steadying/guiding assistance TRANSFERS: BED, CHAIR, WHEELCHAIR - SCORE: 4-MIN TRANSFERS: TOILET: TRANSFERS: TOILET - STEP 1: Does the patient require assistance with toilet transfers? Yes. TRANSFERS: TOILET - STEP 2: Does the patient require the assistance of a helper? Yes. TRANSFERS: TOILET - STEP 3: How much assistance does the patient require from the helper? Only supervision, cuing, coaxing, OR he lp to set out transfer equipment or to lock brakes and/or lift foot rests TRANSFERS: TOILET - SCORE: 5-SUP TRANSFERS: SHOWER: Activity did not occur on this shift TRANSFERS: SHOWER - SCORE: 0-UNK TRANSFERS: TUB: Activity did not occur on this shift TRANSFERS: TUB - SCORE: 0-UNK LOCOMOTION: WALK: Activity did not occur on this shift LOCOMOTION: WALK - SCORE: 0-UNK LOCOMOTION: WHEELCHAIR: Activity did not occur on this shift LOCOMOTION: WHEELCHAIR - SCORE: 0-UNK COMPREHENSION: COMPREHENSION - STEP 1: Does the patient require help to understand complex and abstract ideas (such as current events, finan jasbir, discharge planning, medical issues, relationships, etc)? No. COMPREHENSION - STEP 2: Does the patient need extra time, require an assistive device (such as glasses, hearing aids, or an a ugmentative communication system), OR does s/he have mild difficulty expressing complex and abstract ideas (including mild dysarthria or mild word-finding problems)? Yes. COMPREHENSION - SCORE: 6-VIVEK EXPRESSION EXPRESSION - STEP 1: Does the patient require help expressing complex and abstract ideas (such as current events, finances , discharge planning, medical issues, relationships, etc)? No. EXPRESSION - STEP 2: Does the patient need extra time, require an assistive device (such as augmentive communication syste m or a communication board), OR does s/he have mild difficulty expressing complex and abstract ideas (including mild dysarthria or mild word-find problems)? No. EXPRESSION - SCORE: 7-IND SOCIAL INTERACTION: SOCIAL INTERACTION - STEP 1: Does the patient require a helper to interact with others in social and therapeutic situations? No. SOCIAL INTERACTION - STEP 2: Does the patient need extra time in social situations, OR does s/he interact with staff, other patien ts, and family members ONLY in structured environments, OR does s/he require medication for social in teraction? No. SOCIAL INTERACTION - SCORE: 7-IND PROBLEM SOLVING: PROBLEM SOLVING - STEP 1: Does the patient need help to solve complex problems such as managing a checking account or confronti ng interpersonal problems? No. PROBLEM SOLVING - STEP 2: Does the patient require extra time to make decisions or solve problems, OR does s/he have slight dif ficulty reading, initiating, or self-correcting in unfamiliar situations? No. PROBLEM SOLVING - SCORE: 7-IND MEMORY: MEMORY - STEP 1: Does the patient need help to remember frequently encountered people, daily routines, and executing r equests? No. MEMORY - STEP 2: Does the patient have slight difficulty recognizing frequently encountered people, daily routines, or executing requests without the need for repetition or using self-initiated or environmental cues to remember? No. MEMORY - SCORE: 7-IND SIGNATURE PANEL: The following modified sections: Eating - Score, Grooming - Score, Bathing - Score, Dressing - Upper Body - Score, Dressing - Lower Body - Score, Toileting - Score, Bladder Management - Score, Bowel Man agement - Score, Transfers: Bed, Chair, Wheelchair - Score, Transfers: Toilet - Score, Transfers: Yadi wer - Score, Transfers: Tub - Score, Locomotion: Walk - Score, Locomotion: Wheelchair - Score, Compre hension - Score, Expression - Score, Social Interaction - Score, Problem Solving - Score, Memory - Sc ore were [electronically] signed by Zaria Dickens RN on SatApr 27 2018 01:35:58 GMT-0500 ([facility] Time)
[2018-04-27] MEDS: LEVOTHYROXINE SOD 0.05 MG TABLET PO SCH (05:06)
[2018-04-27] MEDS: METOPROLOL XL 50 MG TAB PO SCH ×2 (05:06→17:02)
[2018-04-27] MEDS: AMLODIPINE 10 MG TAB PO SCH (08:54)
[2018-04-27] MEDS: RANITIDINE 150 MG TABLET PO SCH (08:54)
[2018-04-27] MEDS: ASPIRIN EC 325 MG TABLET PO SCH (08:54)
[2018-04-27] MEDS: LOSARTAN/HCTZ 50-12.5 PO SCH (08:54)
[2018-04-27] MEDS: MONTELUKAST 10 MG TAB PO SCH (08:55)
[2018-04-27] MEDS: GABAPENTIN 400 MG CAP PO SCH ×3 (08:55→20:24)
--- NOTE | 2018-04-27 11:12 | P.PN ---
Subjective Date of Service: 04/27/18 Chief Complaint: STABLE , NO CHANGES. Subjective: No new changes SHE IS STABLE , FEELING BETTER. ABLE TO AMBULATE. Review of Systems 10-point ROS is otherwise unremarkable Physical Examination - Vital Signs Temperature: 97.4 F Blood Pressure: 131/67 Pulse: 59 Respirations: 14 Pulse Ox (%): 97 - Physical Exam General: Alert, In no apparent distress HEENT: Atraumatic, PERRLA, EOMI Neck: Supple, JVD not distended Respiratory: Clear to auscultation bilaterally, Normal air movement Cardiovascular: Regular rate/rhythm, Normal S1 S2 Gastrointestinal: Normal bowel sounds, No tenderness Musculoskeletal: No tenderness Integumentary: No rashes Neurological: Normal speech, Normal tone, Normal affect, Abnormal gait (MILD UNSTEADINESS.) Lymphatics: No axilla or inguinal lymphadenopathy - Studies Microbiology Data (last 24 hrs): 04/24/18 18:21 Clean Catch Urine [place] Count - Final BETWEEN 10,000 & 100,000 CFU/ML 04/24/18 18:21 Clean Catch Urine - Final Medications List Reviewed: Yes Assessment And Plan - Current Problems (Diagnosis) (1) Thalamic infarct, acute Onset Date: 04/23/18 Current Visit: No Status: Acute Plan: PT DAILY ASPIRIN DAILY BP CONTROL STATINS. RESUME PT BP MEDS RAISED NO CHANGES.
--- NOTE | 2018-04-27 12:41 | FAST ---
SHIFT START DATE/TIME: 04/27/2018 07:00 (CDT) SHIFT END DATE/TIME: 04/27/2018 19:00 (CDT) NAME RADHA HAAS DATE OF : 1940 DATE OF ADMISSION: 04/24/2018 16:51 (CDT) PHONE: AGE: 77 [facility]# [id number] GENDER: Female ENCOUNTER PHYSICIAN: Dr. Jack Marsh M.D. ADMISSION DIAGNOSIS: - Stroke 01 - Left Body (Right Brain) (01.1) ACUTE THALAMIC INFARCT. EATING: EATING - STEP 1: Does the patient require assistance when eating? Yes. EATING - STEP 2: Does the patient require the assistance of a helper? No, patient only requires an assistive device, O R s/he takes more than reasonable time to eat, OR there is a safety concern, OR s/he requires modifie d food consistency EATING - SCORE: 6-VIVEK GROOMING: Activity did not occur on this shift GROOMING - SCORE: 0-UNK BATHING: Activity did not occur on this shift BATHING - SCORE: 0-UNK DRESSING - UPPER BODY: Activity did not occur on this shift ARTICLES SCORE Total number of steps: 0 DRESSING - UPPER BODY - SCORE: 0-UNK DRESSING - LOWER BODY: Activity did not occur on this shift ARTICLES SCORE Total number of steps: 0 DRESSING - LOWER BODY - SCORE: 0-UNK TOILETING: TOILETING - STEP 1: Does the patient require assistance with toileting? Yes. TOILETING - STEP 2: Does the patient require the assistance of a helper? Yes. TOILETING - STEP 3: How much assistance does the patient require from the helper? Only supervision TOILETING - SCORE: 5-SUP BLADDER MANAGEMENT: BLADDER MANAGEMENT - STEP 1: Does the patient control the bladder completely and intentionally without equipment or devices or med ications, and is always continent? Yes. BLADDER MANAGEMENT - SCORE: 7-IND BOWEL MANAGEMENT: Activity did not occur on this shift BOWEL MANAGEMENT - SCORE: 7-IND TRANSFERS: BED, CHAIR, WHEELCHAIR: TRANSFERS: BED, CHAIR, WHEELCHAIR - STEP 1: Does the patient require assistance with bed, chair, or wheelchair transfers? Yes. TRANSFERS: BED, CHAIR, WHEELCHAIR - STEP 2: Does the patient require the assistance of a helper? Yes. TRANSFERS: BED, CHAIR, WHEELCHAIR - STEP 3: How much assistance does the patient require from the helper? Only supervision TRANSFERS: BED, CHAIR, WHEELCHAIR - SCORE: 5-SUP TRANSFERS: TOILET: TRANSFERS: TOILET - STEP 1: Does the patient require assistance with toilet transfers? Yes. TRANSFERS: TOILET - STEP 2: Does the patient require the assistance of a helper? Yes. TRANSFERS: TOILET - STEP 3: How much assistance does the patient require from the helper? Only supervision, cuing, coaxing, OR he lp to set out transfer equipment or to lock brakes and/or lift foot rests TRANSFERS: TOILET - SCORE: 5-SUP TRANSFERS: SHOWER: Activity did not occur on this shift TRANSFERS: SHOWER - SCORE: 0-UNK TRANSFERS: TUB: Activity did not occur on this shift TRANSFERS: TUB - SCORE: 0-UNK LOCOMOTION: WALK: Activity did not occur on this shift LOCOMOTION: WALK - SCORE: 0-UNK LOCOMOTION: WHEELCHAIR: Activity did not occur on this shift LOCOMOTION: WHEELCHAIR - SCORE: 0-UNK COMPREHENSION: COMPREHENSION - SCORE: 0-UNK EXPRESSION EXPRESSION - SCORE: 0-UNK SOCIAL INTERACTION: SOCIAL INTERACTION - SCORE: 0-UNK PROBLEM SOLVING: PROBLEM SOLVING - SCORE: 0-UNK MEMORY: MEMORY - SCORE: 0-UNK SIGNATURE PANEL: The following modified sections: Eating - Score, Grooming - Score, Bathing - Score, Dressing - Upper Body - Score, Dressing - Lower Body - Score, Toileting - Score, Bladder Management - Score, Bowel Man agement - Score, Transfers: Bed, Chair, Wheelchair - Score, Transfers: Toilet - Score, Transfers: Yadi wer - Score, Transfers: Tub - Score, Locomotion: Walk - Score, Locomotion: Wheelchair - Score, Compre hension - Score, Expression - Score, Social Interaction - Score, Problem Solving - Score, Memory - Sc ore were [electronically] signed by Carlton Hansen on SatApr 27 2018 11:41:45 GMT-0500 ([facility] Day[facility] Time)
[2018-04-27] MEDS: ENOXAPARIN 30 MG/0.3 ML SQ SCH (17:01)
[2018-04-27] MEDS: ATORVASTATIN 40 MG TAB PO SCH (20:24)
--- NOTE | 2018-04-28 03:14 | FAST ---
SHIFT START DATE/TIME: 04/27/2018 19:00 (CDT) SHIFT END DATE/TIME: 04/28/2018 07:00 (CDT) NAME RADHA HAAS DATE OF : 1940 DATE OF ADMISSION: 04/24/2018 16:51 (CDT) PHONE: AGE: 77 [facility]# [id number] GENDER: Female ENCOUNTER PHYSICIAN: Dr. Jack Marsh M.D. ADMISSION DIAGNOSIS: - Stroke 01 - Left Body (Right Brain) (01.1) ACUTE THALAMIC INFARCT. EATING: Activity did not occur on this shift EATING - SCORE: 0-UNK GROOMING: Activity did not occur on this shift GROOMING - SCORE: 0-UNK BATHING: Activity did not occur on this shift BATHING - SCORE: 0-UNK DRESSING - UPPER BODY: Activity did not occur on this shift ARTICLES SCORE Total number of steps: 0 DRESSING - UPPER BODY - SCORE: 0-UNK DRESSING - LOWER BODY: Activity did not occur on this shift ARTICLES SCORE Total number of steps: 0 DRESSING - LOWER BODY - SCORE: 0-UNK TOILETING: TOILETING - STEP 1: Does the patient require assistance with toileting? Yes. TOILETING - STEP 2: Does the patient require the assistance of a helper? Yes. TOILETING - STEP 3: How much assistance does the patient require from the helper? Hands-on assistance from the helper TOILETING - STEP 4: Of the 3 tasks: 1) Adjusting clothing prior to use, 2) Cleansing of perineal area, 3) Adjusting clot zohreh after use; How many tasks does the patient perform WITHOUT assistance of the helper? Three tasks with steadying assistance from the helper TOILETING - SCORE: 4-MIN BLADDER MANAGEMENT: BLADDER MANAGEMENT - STEP 1: Does the patient control the bladder completely and intentionally without equipment or devices or med ications, and is always continent? No. BLADDER MANAGEMENT - STEP 2: Does the patient require the assistance of a helper? Yes. BLADDER MANAGEMENT - STEP 3: How much assistance does the patient require from the helper? Patient requires contact assistance fro m the helper BLADDER MANAGEMENT - STEP 4: How much contact assistance does the patient require from the helper? Patient requires minimal assist ance to maintain an external device - by positioning, and the patient performs 75% or more of bladder management tasks, while the helper provides less than 25% of the assistance to position patient on / off bedpan BLADDER MANAGEMENT - SCORE: 4-MIN BOWEL MANAGEMENT: Activity did not occur on this shift BOWEL MANAGEMENT - SCORE: 7-IND TRANSFERS: BED, CHAIR, WHEELCHAIR: TRANSFERS: BED, CHAIR, WHEELCHAIR - STEP 1: Does the patient require assistance with bed, chair, or wheelchair transfers? Yes. TRANSFERS: BED, CHAIR, WHEELCHAIR - STEP 2: Does the patient require the assistance of a helper? Yes. TRANSFERS: BED, CHAIR, WHEELCHAIR - STEP 3: How much assistance does the patient require from the helper? Steadying/guiding assistance TRANSFERS: BED, CHAIR, WHEELCHAIR - SCORE: 4-MIN TRANSFERS: TOILET: TRANSFERS: TOILET - STEP 1: Does the patient require assistance with toilet transfers? Yes. TRANSFERS: TOILET - STEP 2: Does the patient require the assistance of a helper? Yes. TRANSFERS: TOILET - STEP 3: How much assistance does the patient require from the helper? Patient performs half or more of the tr ansferring tasks TRANSFERS: TOILET - STEP 4: Does the patient need only incidental help such as contact guard or steadying during toilet transfer? Yes. TRANSFERS: TOILET - SCORE: 4-MIN TRANSFERS: SHOWER: Activity did not occur on this shift TRANSFERS: SHOWER - SCORE: 0-UNK TRANSFERS: TUB: Activity did not occur on this shift TRANSFERS: TUB - SCORE: 0-UNK LOCOMOTION: WALK: Activity did not occur on this shift LOCOMOTION: WALK - SCORE: 0-UNK LOCOMOTION: WHEELCHAIR: Activity did not occur on this shift LOCOMOTION: WHEELCHAIR - SCORE: 0-UNK COMPREHENSION: COMPREHENSION - STEP 1: Does the patient require help to understand complex and abstract ideas (such as current events, finan jasbir, discharge planning, medical issues, relationships, etc)? No. COMPREHENSION - STEP 2: Does the patient need extra time, require an assistive device (such as glasses, hearing aids, or an a ugmentative communication system), OR does s/he have mild difficulty expressing complex and abstract ideas (including mild dysarthria or mild word-finding problems)? Yes. COMPREHENSION - SCORE: 6-VIVEK EXPRESSION EXPRESSION - STEP 1: Does the patient require help expressing complex and abstract ideas (such as current events, finances , discharge planning, medical issues, relationships, etc)? No. EXPRESSION - STEP 2: Does the patient need extra time, require an assistive device (such as augmentive communication syste m or a communication board), OR does s/he have mild difficulty expressing complex and abstract ideas (including mild dysarthria or mild word-find problems)? No. EXPRESSION - SCORE: 7-IND SOCIAL INTERACTION: SOCIAL INTERACTION - STEP 1: Does the patient require a helper to interact with others in social and therapeutic situations? No. SOCIAL INTERACTION - STEP 2: Does the patient need extra time in social situations, OR does s/he interact with staff, other patien ts, and family members ONLY in structured environments, OR does s/he require medication for social in teraction? No. SOCIAL INTERACTION - SCORE: 7-IND PROBLEM SOLVING: PROBLEM SOLVING - STEP 1: Does the patient need help to solve complex problems such as managing a checking account or confronti ng interpersonal problems? No. PROBLEM SOLVING - STEP 2: Does the patient require extra time to make decisions or solve problems, OR does s/he have slight dif ficulty reading, initiating, or self-correcting in unfamiliar situations? No. PROBLEM SOLVING - SCORE: 7-IND MEMORY: MEMORY - STEP 1: Does the patient need help to remember frequently encountered people, daily routines, and executing r equests? No. MEMORY - STEP 2: Does the patient have slight difficulty recognizing frequently encountered people, daily routines, or executing requests without the need for repetition or using self-initiated or environmental cues to remember? No. MEMORY - SCORE: 7-IND SIGNATURE PANEL: The following modified sections: Eating - Score, Grooming - Score, Bathing - Score, Dressing - Upper Body - Score, Dressing - Lower Body - Score, Toileting - Score, Bladder Management - Score, Bowel Man agement - Score, Transfers: Bed, Chair, Wheelchair - Score, Transfers: Toilet - Score, Transfers: Yadi wer - Score, Transfers: Tub - Score, Locomotion: Walk - Score, Locomotion: Wheelchair - Score, Compre hension - Score, Expression - Score, Social Interaction - Score, Problem Solving - Score, Memory - Sc ore were [electronically] signed by Zaria Dickens RN on SatApr 28 2018 02:14:48 T-0500 ([facility] Time)
[2018-04-28] MEDS: LEVOTHYROXINE SOD 0.05 MG TABLET PO SCH (05:02)
[2018-04-28] MEDS: METOPROLOL XL 50 MG TAB PO SCH ×2 (05:06→17:42)
[2018-04-28] MEDS: GABAPENTIN 400 MG CAP PO SCH ×3 (07:02→20:51)
[2018-04-28] MEDS: LOSARTAN/HCTZ 50-12.5 PO SCH (07:02)
[2018-04-28] MEDS: AMLODIPINE 10 MG TAB PO SCH (07:02)
[2018-04-28] MEDS: MONTELUKAST 10 MG TAB PO SCH (07:02)
[2018-04-28] MEDS: ASPIRIN EC 325 MG TABLET PO SCH (07:02)
[2018-04-28] MEDS: RANITIDINE 150 MG TABLET PO SCH (07:03)
[2018-04-28] MEDS: ACETAMINOPHEN 325 MG TABLET PO PRN ×2 (09:40→18:34)
--- NOTE | 2018-04-28 15:35 | FAST ---
SHIFT START DATE/TIME: 04/28/2018 07:00 (CDT) SHIFT END DATE/TIME: 04/28/2018 19:00 (CDT) NAME RADHA HAAS DATE OF : 1940 DATE OF ADMISSION: 04/24/2018 16:51 (CDT) PHONE: AGE: 77 [facility]# [id number] GENDER: Female ENCOUNTER PHYSICIAN: Dr. Jack Marsh M.D. ADMISSION DIAGNOSIS: - Stroke 01 - Left Body (Right Brain) (01.1) ACUTE THALAMIC INFARCT. EATING: EATING - STEP 1: Does the patient require assistance when eating? Yes. EATING - STEP 2: Does the patient require the assistance of a helper? No, patient only requires an assistive device, O R s/he takes more than reasonable time to eat, OR there is a safety concern, OR s/he requires modifie d food consistency EATING - SCORE: 6-VIVEK GROOMING: Comb/brush hair Oral care Wash, rinse, and dry face Wash, rinse, and dry hands GROOMING - STEP 1: Does the patient require assistance when grooming? No. GROOMING - SCORE: 7-IND BATHING: Activity did not occur on this shift BATHING - SCORE: 0-UNK DRESSING - UPPER BODY: Bra (three steps) Button down shirt or blouse - NOT tucked in (four steps) ARTICLES SCORE Total number of steps: 7 DRESSING - UPPER BODY - STEP 1: Does the patient require help when dressing above the waist? Yes. DRESSING - UPPER BODY - STEP 2: Does the patient require the assistance of a helper? No. Patient only requires an assistive device, s uch as a button hook, velcro, or patrol deputy sheriff. OR s/he takes more than reasonable time as s/he dresses the upper body. OR there is a concern for safety when s/he dresses the upper body DRESSING - UPPER BODY - SCORE: 6-VIVEK DRESSING - LOWER BODY: Elastic waist pants (three steps) Slip-on shoe - Left foot (one step) Slip-on shoe - Right foot (one step) Underwear (three steps) ARTICLES SCORE Total number of steps: 8 DRESSING - LOWER BODY - STEP 1: Does the patient require help when dressing below the waist? Yes. DRESSING - LOWER BODY - STEP 2: Does the patient require the assistance of a helper? No. Patient requires an assistive device such as a patrol deputy sheriff. OR s/he takes more than reasonable time as s/he dresses the lower body, OR there is a con cern for safety when s/he dresses the lower body DRESSING - LOWER BODY - SCORE: 6-VIVEK TOILETING: TOILETING - STEP 1: Does the patient require assistance with toileting? Yes. TOILETING - STEP 2: Does the patient require the assistance of a helper? No. TOILETING - SCORE: 6-VIVEK BLADDER MANAGEMENT: BLADDER MANAGEMENT - STEP 1: Does the patient control the bladder completely and intentionally without equipment or devices or med ications, and is always continent? Yes. BLADDER MANAGEMENT - SCORE: 7-IND BLADDER MANAGEMENT - FREQUENCY OF ACCIDENTS: BLADDER MANAGEMENT(FA) - STEP 1: How many accidents has the patient had during the current shift? 0 BOWEL MANAGEMENT: BOWEL MANAGEMENT - STEP 1: Does the patient control bowels completely and intentionally without equipment devices or medications AND is always continent? No. BOWEL MANAGEMENT - STEP 2: Does the patient require the assistance of a helper? No, patient requires medication for control such as stool softeners, suppositories, laxatives, enemas, or OTC medications BOWEL MANAGEMENT - SCORE: 6-VIVEK BOWEL MANAGEMENT - FREQUENCY OF ACCIDENTS: BOWEL MANAGEMENT(FA) - STEP 1: How many accidents has the patient had during the current shift? 0 TRANSFERS: BED, CHAIR, WHEELCHAIR: TRANSFERS: BED, CHAIR, WHEELCHAIR - STEP 1: Does the patient require assistance with bed, chair, or wheelchair transfers? Yes. TRANSFERS: BED, CHAIR, WHEELCHAIR - STEP 2: Does the patient require the assistance of a helper? No. Patient only requires an assistive device fo r bed, chair, wheelchair transfers such as a sliding board, grab bar, or brace, OR s/he takes more th an reasonable time, OR there is a safety concern when s/he performs the transfers TRANSFERS: BED, CHAIR, WHEELCHAIR - SCORE: 6-VIVEK TRANSFERS: TOILET: TRANSFERS: TOILET - STEP 1: Does the patient require assistance with toilet transfers? Yes. TRANSFERS: TOILET - STEP 2: Does the patient require the assistance of a helper? No. Patient only requires an assistive device strange ch as a grab bar or special seat, OR s/he takes more than reasonable time to perform toilet transfers , OR there is a safety concern when s/he performs toilet transfers. TRANSFERS: TOILET - SCORE: 6-VIVEK TRANSFERS: SHOWER: Activity did not occur on this shift TRANSFERS: SHOWER - SCORE: 0-UNK TRANSFERS: TUB: Activity did not occur on this shift TRANSFERS: TUB - SCORE: 0-UNK LOCOMOTION: WALK: Activity did not occur on this shift LOCOMOTION: WALK - SCORE: 0-UNK LOCOMOTION: WHEELCHAIR: Activity did not occur on this shift LOCOMOTION: WHEELCHAIR - SCORE: 0-UNK COMPREHENSION: COMPREHENSION: TYPE: Both COMPREHENSION - STEP 1: Does the patient require help to understand complex and abstract ideas (such as current events, finan jasbir, discharge planning, medical issues, relationships, etc)? No. COMPREHENSION - STEP 2: Does the patient need extra time, require an assistive device (such as glasses, hearing aids, or an a ugmentative communication system), OR does s/he have mild difficulty expressing complex and abstract ideas (including mild dysarthria or mild word-finding problems)? Yes. COMPREHENSION - SCORE: 6-VIVEK EXPRESSION EXPRESSION - STEP 1: Does the patient require help expressing complex and abstract ideas (such as current events, finances , discharge planning, medical issues, relationships, etc)? No. EXPRESSION - STEP 2: Does the patient need extra time, require an assistive device (such as augmentive communication syste m or a communication board), OR does s/he have mild difficulty expressing complex and abstract ideas (including mild dysarthria or mild word-find problems)? Yes. EXPRESSION - SCORE: 6-VIVEK SOCIAL INTERACTION: SOCIAL INTERACTION - STEP 1: Does the patient require a helper to interact with others in social and therapeutic situations? No. SOCIAL INTERACTION - STEP 2: Does the patient need extra time in social situations, OR does s/he interact with staff, other patien ts, and family members ONLY in structured environments, OR does s/he require medication for social in teraction? No. SOCIAL INTERACTION - SCORE: 7-IND PROBLEM SOLVING: PROBLEM SOLVING - STEP 1: Does the patient need help to solve complex problems such as managing a checking account or confronti ng interpersonal problems? No. PROBLEM SOLVING - STEP 2: Does the patient require extra time to make decisions or solve problems, OR does s/he have slight dif ficulty reading, initiating, or self-correcting in unfamiliar situations? Yes, patient needs extra ti me. PROBLEM SOLVING - SCORE: 6-VIVEK MEMORY: MEMORY - STEP 1: Does the patient need help to remember frequently encountered people, daily routines, and executing r equests? No. MEMORY - STEP 2: Does the patient have slight difficulty recognizing frequently encountered people, daily routines, or executing requests without the need for repetition or using self-initiated or environmental cues to remember? Yes. MEMORY - SCORE: 6-VIVEK SIGNATURE PANEL: The following modified sections: Eating - Score, Grooming - Score, Bathing - Score, Dressing - Upper Body - Score, Dressing - Lower Body - Score, Toileting - Score, Bladder Management - Score, Bowel Man agement - Score, Transfers: Bed, Chair, Wheelchair - Score, Transfers: Toilet - Score, Transfers: Yadi wer - Score, Transfers: Tub - Score, Locomotion: Walk - Score, Locomotion: Wheelchair - Score, Compre hension - Score, Expression - Score, Social Interaction - Score, Problem Solving - Score, Memory - Sc ore were [electronically] signed by Theresa Moeller C.N.A. on SatApr 28 2018 14:35:23 T-0500 (Centra l Daylight Time)
--- NOTE | 2018-04-28 16:45 | FAST ---
ENCOUNTER DATE AND TIME: 04/28/2018 08:00 (CDT) NAME RADHA HAAS DATE OF : 1940 DATE OF ADMISSION: 04/24/2018 16:51 (CDT) PHONE: AGE: 77 N# [id number] GENDER: Female ENCOUNTER PHYSICIAN: Dr. Jack Marsh M.D. ADMISSION DIAGNOSIS: - Stroke 01 - Left Body (Right Brain) (01.1) ACUTE THALAMIC INFARCT. EATING: Activity did not occur on this shift EATING - SCORE: 0-UNK GROOMING: Activity did not occur on this shift GROOMING - SCORE: 0-UNK BATHING: Activity did not occur on this shift BATHING - SCORE: 0-UNK DRESSING - UPPER BODY: Activity did not occur on this shift Patient is not dressing in public clothing ARTICLES SCORE Total number of steps: 0 DRESSING - UPPER BODY - SCORE: 0-UNK DRESSING - LOWER BODY: Activity did not occur on this shift Patient is not dressing in public clothing ARTICLES SCORE Total number of steps: 0 DRESSING - LOWER BODY - SCORE: 0-UNK TOILETING: Activity did not occur on this shift TOILETING - SCORE: 0-UNK BLADDER MANAGEMENT: Activity did not occur on this shift BLADDER MANAGEMENT - SCORE: 7-IND BOWEL MANAGEMENT: Activity did not occur on this shift BOWEL MANAGEMENT - SCORE: 7-IND TRANSFERS: BED, CHAIR, WHEELCHAIR: TRANSFERS: BED, CHAIR, WHEELCHAIR - STEP 1: Does the patient require assistance with bed, chair, or wheelchair transfers? Yes. TRANSFERS: BED, CHAIR, WHEELCHAIR - STEP 2: Does the patient require the assistance of a helper? No. Patient only requires an assistive device fo r bed, chair, wheelchair transfers such as a sliding board, grab bar, or brace, OR s/he takes more th an reasonable time, OR there is a safety concern when s/he performs the transfers TRANSFERS: BED, CHAIR, WHEELCHAIR - SCORE: 6-VIVEK TRANSFERS: TOILET: TRANSFERS: TOILET - STEP 1: Does the patient require assistance with toilet transfers? Yes. TRANSFERS: TOILET - STEP 2: Does the patient require the assistance of a helper? No. Patient only requires an assistive device strange ch as a grab bar or special seat, OR s/he takes more than reasonable time to perform toilet transfers , OR there is a safety concern when s/he performs toilet transfers. TRANSFERS: TOILET - SCORE: 6-VIVEK TRANSFERS: SHOWER: Activity did not occur on this shift TRANSFERS: SHOWER - SCORE: 0-UNK TRANSFERS: TUB: Activity did not occur on this shift TRANSFERS: TUB - SCORE: 0-UNK LOCOMOTION: WALK: LOCOMOTION: WALK - STEP 1: Does the patient need help to walk 150 feet? Yes. LOCOMOTION: WALK - STEP 2: How much assistance does the patient require to walk a minimum of 150 feet? Only supervision, cuing, or coaxing LOCOMOTION: WALK - SCORE: 5-SUP LOCOMOTION: WHEELCHAIR: Activity did not occur on this shift LOCOMOTION: WHEELCHAIR - SCORE: 0-UNK LOCOMOTION: STAIRS: LOCOMOTION: STAIRS - STEP 1: Does the patient need help to go up and down 12 to 14 stairs? Yes. LOCOMOTION: STAIRS - STEP 2: How much assistance does the patient need from the helper to go a minimum of 12 to 14 stairs? Only strange pervision, cuing, or coaxing LOCOMOTION: STAIRS - SCORE: 5-SUP COMPREHENSION: COMPREHENSION - SCORE: 0-UNK EXPRESSION EXPRESSION - SCORE: 0-UNK SOCIAL INTERACTION: SOCIAL INTERACTION - SCORE: 0-UNK PROBLEM SOLVING: PROBLEM SOLVING - SCORE: 0-UNK MEMORY: MEMORY - SCORE: 0-UNK SIGNATURE PANEL: The following modified sections: Transfers: Bed, Chair, Wheelchair - Score, Transfers: Toilet - Score , Locomotion: Walk - Score, Locomotion: Wheelchair - Score, Locomotion: Stairs - Score were [jamal gamboa] signed by Kumar Donato PT on SatApr 28 2018 15:45:57 T-0500 (Central Daylight Time)
[2018-04-28] MEDS: ENOXAPARIN 30 MG/0.3 ML SQ SCH (17:42)
--- NOTE | 2018-04-28 17:52 | P.PN ---
Subjective Date of Service: 04/28/18 Chief Complaint: STABLE , NO CHANGES. Subjective: Improving SHE IS STABLE , FEELING BETTER. ABLE TO AMBULATE. Review of Systems 10-point ROS is otherwise unremarkable Physical Examination - Vital Signs Temperature: 96.2 F Blood Pressure: 135/61 Pulse: 68 Respirations: 16 Pulse Ox (%): 97 - Physical Exam General: Alert, In no apparent distress HEENT: Atraumatic, PERRLA, EOMI Neck: Supple, JVD not distended Respiratory: Clear to auscultation bilaterally, Normal air movement Cardiovascular: Regular rate/rhythm, Normal S1 S2 Gastrointestinal: Normal bowel sounds, No tenderness Musculoskeletal: No tenderness Integumentary: No rashes Neurological: Abnormal strength (MILD LOWER LIMB WEAKNESS. R) Lymphatics: No axilla or inguinal lymphadenopathy - Studies Medications List Reviewed: Yes Assessment And Plan - Current Problems (Diagnosis) (1) Thalamic infarct, acute Onset Date: 04/23/18 Current Visit: No Status: Acute Plan: PT DAILY ASPIRIN DAILY BP CONTROL STATINS. RESUME PT BP MEDS RAISED NO CHANGES. NO CHANGES. CONT PT.
--- NOTE | 2018-04-28 18:07 | R.PN ---
ENCOUNTER DATE AND TIME: 04/28/2018 17:03 (CDT) NAME RADHA HAAS DATE OF : 1940 DATE OF ADMISSION: 04/24/2018 16:51 (CDT) ACUTE THALAMIC INFARCTCHIEF COMPLAINT: Stroke with incoordination. SUBJECTIVE: Pt denied any Shortness of Breath. Pt denied any depression. Ambulated 1250' without an assistive device with standby assistance. Ascended and descended 25 steps with standby assistance. Ambulated 250 feet x 3 with standby assistance using a rolling walker and 15 steps with contact guard assistance. VITAL SIGNS Temperature: 97 F SBP/DBP: 144/60 Pulse: 60 Resp: 16 MEDICATION ALLERGIES: PENICILLIN STREPTOMYCIN ENVIRONMENTAL ALLERGIES: None Known - Substance Allergies None Known - Other Allergies None Known NURSING: - Shower allowing shower - Bladder care per protocol - Skin care per protocol PRECAUTIONS: - Fall Precaution Bed and chair alarm ACTIVITIES OOB only with supervision THERAPIES: - Occupational Therapy Evaluate and Treat. Visual Perceptual Training. Cognitive Retraining. - Speech Therapy Cognitive Training. Memory Strategies. Speech Intelligibility Training. Expressive Language Skills. R eceptive Language Skills. - Physical Therapy Evaluate and Treat. PHYSICAL EXAM - Gen Alert and awake Lying in bed No apparent distress Oriented to: person, time, and place - Vital Signs Temperature: 97 F SBP/DBP: 189/81 Pulse: 65 Resp: 16 - Skin No skin breakdown. Normacephalic - Eyes No abnormalities - ENMT No abnormalities - Neck No abnormalities - CVS RRR - Chest Clear - Resp Clear to auscultation - Abd Soft - GI Non distended Deferred - No abnormalities - Ext No significant edema - MSK No Stiffness - Neuro Incoordination, mild lower extremity weakness and dysmetria, unsteady gait - Psych No abnormalities ASSESSMENT: Pt. is a 77 yo Right-handed white female.On 04/22/2018 Pt. presented to [facility] with sudden onset of left-side weakness.On 04/22/2018 she was admitted to [facility] with diagnosis ACUTE THALAMIC INFARCT.Her impairment category is Stroke 01 - Left Body (Ri ght Brain) (01.1).Pre-morbidly, Pt. was independent/mod-I in Sphincter Control, Transfers Control, Co mmunication, Social Cognition, Self-Care, and Locomotion; and she had good Sphincter Control.Currentl y, she has deficits of Safety Awareness, Transfers Control, Balance, Endurance, Locomotion, and Self- Care.Pt. is now referred to [facility] for acute in-patient rehabilitation in order to maximize patient's functional independence in activities of daily living, strength, ROM, and mobility.- Rehab Goal Patient has realistic goal of being discharged at assistance level 6-Kim to reside at Home with Fam lul/Relatives. MDM/PLAN: - Physical Therapy Edema - to improve, our physical therapists will perform initial evaluation of pt's status upon admis trev and devise an individualized program for Elevation Training, and Lymphedema Therapy FUNCTIONAL STATUS: UPDATED AT WEEKLY TEAM CONFERENCE - Bladder Same accident frequency: 7-Ind - No accidents in the past 7 days - Bowel Same accident frequency: 7-Ind - No accidents in the past 7 days - Walking Same score based on distance walked: 3(>=150ft) FUNCTIONAL STATUS: - Self-Care A. Eating Ind B. Grooming Kim C. Bathing sup D. Dressing - Upper sup E. Dressing - Lower sup F. Toileting sup - Sphincter Control G: Bladder control Ind H: Bowel control Ind - Transfers Control I. Bed/Chair/Wheelchair sup J. Toilet sup K. Tub/Shower ADNO - Locomotion L. Walk/Wheelchair (W) sup M. Stairs ADNO - Communication N. Comprehension (B) Ind O. Expression (B) Ind - Social Cognition P. Social Interaction Ind Q. Problem Solving Ind R. Memory Ind - Endurance Fair - Balance Fair - Safety Awareness Fair CURRENT FUNC. DEFICITS: Safety Awareness, Transfers Control, Balance, Endurance, Locomotion, and Self-Care SIGNATURE PANEL: (CDT)
[2018-04-28] MEDS: ATORVASTATIN 40 MG TAB PO SCH (20:50)
[2018-04-28] MEDS: TRAMADOL HCL 50 MG TAB PO PRN (23:26)
--- NOTE | 2018-04-29 03:22 | FAST ---
SHIFT START DATE/TIME: 04/28/2018 19:00 (CDT) SHIFT END DATE/TIME: 04/29/2018 07:00 (CDT) NAME RADHA HAAS DATE OF : 1940 DATE OF ADMISSION: 04/24/2018 16:51 (CDT) PHONE: AGE: 77 [facility]# [id number] GENDER: Female ENCOUNTER PHYSICIAN: Dr. Jack Marsh M.D. ADMISSION DIAGNOSIS: - Stroke 01 - Left Body (Right Brain) (01.1) ACUTE THALAMIC INFARCT. EATING: Activity did not occur on this shift EATING - SCORE: 0-UNK GROOMING: Oral care Wash, rinse, and dry face Wash, rinse, and dry hands GROOMING - STEP 1: Does the patient require assistance when grooming? Yes. GROOMING - STEP 2: Does the patient require the assistance of a helper? No. The patient only requires an assistive devic e, OR takes more than reasonable time to groom, OR there is a concern for safety as the patient groom s GROOMING - SCORE: 6-VIVEK BATHING: Activity did not occur on this shift BATHING - SCORE: 0-UNK DRESSING - UPPER BODY: Patient is not dressing in public clothing ARTICLES SCORE Total number of steps: 0 DRESSING - UPPER BODY - SCORE: 0-UNK DRESSING - LOWER BODY: Patient is not dressing in public clothing ARTICLES SCORE Total number of steps: 0 DRESSING - LOWER BODY - SCORE: 0-UNK TOILETING: TOILETING - STEP 1: Does the patient require assistance with toileting? Yes. TOILETING - STEP 2: Does the patient require the assistance of a helper? No. TOILETING - SCORE: 6-VIVEK BLADDER MANAGEMENT: BLADDER MANAGEMENT - STEP 1: Does the patient control the bladder completely and intentionally without equipment or devices or med ications, and is always continent? Yes. BLADDER MANAGEMENT - SCORE: 7-IND BOWEL MANAGEMENT: Activity did not occur on this shift BOWEL MANAGEMENT - SCORE: 7-IND TRANSFERS: BED, CHAIR, WHEELCHAIR: TRANSFERS: BED, CHAIR, WHEELCHAIR - STEP 1: Does the patient require assistance with bed, chair, or wheelchair transfers? Yes. TRANSFERS: BED, CHAIR, WHEELCHAIR - STEP 2: Does the patient require the assistance of a helper? No. Patient only requires an assistive device fo r bed, chair, wheelchair transfers such as a sliding board, grab bar, or brace, OR s/he takes more th an reasonable time, OR there is a safety concern when s/he performs the transfers TRANSFERS: BED, CHAIR, WHEELCHAIR - SCORE: 6-VIVEK TRANSFERS: TOILET: TRANSFERS: TOILET - STEP 1: Does the patient require assistance with toilet transfers? Yes. TRANSFERS: TOILET - STEP 2: Does the patient require the assistance of a helper? No. Patient only requires an assistive device strange ch as a grab bar or special seat, OR s/he takes more than reasonable time to perform toilet transfers , OR there is a safety concern when s/he performs toilet transfers. TRANSFERS: TOILET - SCORE: 6-VIVEK TRANSFERS: SHOWER: Activity did not occur on this shift TRANSFERS: SHOWER - SCORE: 0-UNK TRANSFERS: TUB: Activity did not occur on this shift TRANSFERS: TUB - SCORE: 0-UNK LOCOMOTION: WALK: Activity did not occur on this shift LOCOMOTION: WALK - SCORE: 0-UNK LOCOMOTION: WHEELCHAIR: Activity did not occur on this shift LOCOMOTION: WHEELCHAIR - SCORE: 0-UNK COMPREHENSION: COMPREHENSION: TYPE: Both COMPREHENSION - STEP 1: Does the patient require help to understand complex and abstract ideas (such as current events, finan jasbir, discharge planning, medical issues, relationships, etc)? No. COMPREHENSION - STEP 2: Does the patient need extra time, require an assistive device (such as glasses, hearing aids, or an a ugmentative communication system), OR does s/he have mild difficulty expressing complex and abstract ideas (including mild dysarthria or mild word-finding problems)? Yes. COMPREHENSION - SCORE: 6-VIVEK EXPRESSION EXPRESSION: TYPE: Both EXPRESSION - STEP 1: Does the patient require help expressing complex and abstract ideas (such as current events, finances , discharge planning, medical issues, relationships, etc)? No. EXPRESSION - STEP 2: Does the patient need extra time, require an assistive device (such as augmentive communication syste m or a communication board), OR does s/he have mild difficulty expressing complex and abstract ideas (including mild dysarthria or mild word-find problems)? Yes. EXPRESSION - SCORE: 6-VIVEK SOCIAL INTERACTION: SOCIAL INTERACTION - STEP 1: Does the patient require a helper to interact with others in social and therapeutic situations? No. SOCIAL INTERACTION - STEP 2: Does the patient need extra time in social situations, OR does s/he interact with staff, other patien ts, and family members ONLY in structured environments, OR does s/he require medication for social in teraction? No. SOCIAL INTERACTION - SCORE: 7-IND PROBLEM SOLVING: PROBLEM SOLVING - STEP 1: Does the patient need help to solve complex problems such as managing a checking account or confronti ng interpersonal problems? No. PROBLEM SOLVING - STEP 2: Does the patient require extra time to make decisions or solve problems, OR does s/he have slight dif ficulty reading, initiating, or self-correcting in unfamiliar situations? Yes, patient needs extra ti me. PROBLEM SOLVING - SCORE: 6-VIVEK MEMORY: MEMORY - STEP 1: Does the patient need help to remember frequently encountered people, daily routines, and executing r equests? No. MEMORY - STEP 2: Does the patient have slight difficulty recognizing frequently encountered people, daily routines, or executing requests without the need for repetition or using self-initiated or environmental cues to remember? Yes. MEMORY - SCORE: 6-VIVEK
[2018-04-29] MEDS: TRAMADOL HCL 50 MG TAB PO PRN (05:22)
[2018-04-29] MEDS: METOPROLOL XL 50 MG TAB PO SCH ×2 (05:23→17:25)
[2018-04-29] MEDS: LEVOTHYROXINE SOD 0.05 MG TABLET PO SCH (05:23)
--- NOTE | 2018-04-29 07:48 | FAST ---
ENCOUNTER DATE AND TIME: 04/28/2018 08:00 (CDT) NAME RADHA HAAS DATE OF : 1940 DATE OF ADMISSION: 04/24/2018 16:51 (CDT) PHONE: AGE: 77 N# [id number] GENDER: Female ENCOUNTER PHYSICIAN: Dr. Jack Marsh M.D. ADMISSION DIAGNOSIS: - Stroke 01 - Left Body (Right Brain) (01.1) ACUTE THALAMIC INFARCT. EATING: Activity did not occur on this shift EATING - SCORE: 0-UNK GROOMING: Comb/brush hair Wash, rinse, and dry face Wash, rinse, and dry hands GROOMING - STEP 1: Does the patient require assistance when grooming? No. GROOMING - SCORE: 7-IND BATHING: Abdomen Buttocks Chest Left arm Left lower leg and foot Left upper leg Perineal area Right arm Right lower leg and foot Right upper leg BATHING - STEP 1: Does the patient require assistance when bathing? Yes. BATHING - STEP 2: Does the patient require the assistance of a helper? Yes. BATHING - STEP 3: How much assistance does the patient require from the helper? Only supervision, cuing, coaxing, instr uctions, encouragement BATHING - SCORE: 5-SUP DRESSING - UPPER BODY: T-shirt/pullover shirt (four steps) ARTICLES SCORE Total number of steps: 4 DRESSING - UPPER BODY - STEP 1: Does the patient require help when dressing above the waist? No. DRESSING - UPPER BODY - SCORE: 7-IND DRESSING - LOWER BODY: Slip-on shoe - Left foot (one step) Slip-on shoe - Right foot (one step) Sock - Left foot (one step) Sock - Right foot (one step) Underwear (three steps) ARTICLES SCORE Total number of steps: 7 DRESSING - LOWER BODY - STEP 1: Does the patient require help when dressing below the waist? Yes. DRESSING - LOWER BODY - STEP 2: Does the patient require the assistance of a helper? Yes. DRESSING - LOWER BODY - STEP 3: Does the helper touch the patient while dressing? No. DRESSING - LOWER BODY - SCORE: 5-SUP TOILETING: Activity did not occur on this shift TOILETING - SCORE: 0-UNK BLADDER MANAGEMENT: Activity did not occur on this shift BLADDER MANAGEMENT - SCORE: 7-IND BOWEL MANAGEMENT: Activity did not occur on this shift BOWEL MANAGEMENT - SCORE: 7-IND TRANSFERS: BED, CHAIR, WHEELCHAIR: Activity did not occur on this shift TRANSFERS: BED, CHAIR, WHEELCHAIR - SCORE: 0-UNK TRANSFERS: TOILET: Activity did not occur on this shift TRANSFERS: TOILET - SCORE: 0-UNK TRANSFERS: SHOWER: TRANSFERS: SHOWER - STEP 1: Does the patient require assistance with shower transfers? Yes. TRANSFERS: SHOWER - STEP 2: Does the patient require the assistance of a helper? Yes. TRANSFERS: SHOWER - STEP 3: How much assistance does the patient require from the helper? Only supervision, cuing, coaxing, or he lp to set out transfer equipment or to lock brakes and/or lift foot rests TRANSFERS: SHOWER - SCORE: 5-SUP TRANSFERS: TUB: Activity did not occur on this shift TRANSFERS: TUB - SCORE: 0-UNK LOCOMOTION: WALK: Activity did not occur on this shift LOCOMOTION: WALK - SCORE: 0-UNK LOCOMOTION: WHEELCHAIR: Activity did not occur on this shift LOCOMOTION: WHEELCHAIR - SCORE: 0-UNK LOCOMOTION: STAIRS: Activity did not occur on this shift LOCOMOTION: STAIRS - SCORE: 0-UNK COMPREHENSION: COMPREHENSION - STEP 1: Does the patient require help to understand complex and abstract ideas (such as current events, finan jasbir, discharge planning, medical issues, relationships, etc)? No. COMPREHENSION - STEP 2: Does the patient need extra time, require an assistive device (such as glasses, hearing aids, or an a ugmentative communication system), OR does s/he have mild difficulty expressing complex and abstract ideas (including mild dysarthria or mild word-finding problems)? No. COMPREHENSION - SCORE: 7-IND EXPRESSION EXPRESSION: TYPE: Non-Vocal EXPRESSION - STEP 1: Does the patient require help expressing complex and abstract ideas (such as current events, finances , discharge planning, medical issues, relationships, etc)? No. EXPRESSION - STEP 2: Does the patient need extra time, require an assistive device (such as augmentive communication syste m or a communication board), OR does s/he have mild difficulty expressing complex and abstract ideas (including mild dysarthria or mild word-find problems)? No. EXPRESSION - SCORE: 7-IND SOCIAL INTERACTION: SOCIAL INTERACTION - STEP 1: Does the patient require a helper to interact with others in social and therapeutic situations? No. SOCIAL INTERACTION - STEP 2: Does the patient need extra time in social situations, OR does s/he interact with staff, other patien ts, and family members ONLY in structured environments, OR does s/he require medication for social in teraction? No. SOCIAL INTERACTION - SCORE: 7-IND PROBLEM SOLVING: PROBLEM SOLVING - STEP 1: Does the patient need help to solve complex problems such as managing a checking account or confronti ng interpersonal problems? No. PROBLEM SOLVING - STEP 2: Does the patient require extra time to make decisions or solve problems, OR does s/he have slight dif ficulty reading, initiating, or self-correcting in unfamiliar situations? No. PROBLEM SOLVING - SCORE: 7-IND MEMORY: MEMORY - STEP 1: Does the patient need help to remember frequently encountered people, daily routines, and executing r equests? No. MEMORY - STEP 2: Does the patient have slight difficulty recognizing frequently encountered people, daily routines, or executing requests without the need for repetition or using self-initiated or environmental cues to remember? No. MEMORY - SCORE: 7-IND SIGNATURE PANEL: The following modified sections: Eating - Score, Grooming - Score, Bathing - Score, Dressing - Upper Body - Score, Dressing - Lower Body - Score, Toileting - Score, Transfers: Bed, Chair, Wheelchair - S core, Transfers: Toilet - Score, Transfers: Shower - Score, Transfers: Tub - Score, Comprehension - S core, Expression - Score, Social Interaction - Score, Problem Solving - Score, Memory - Score were [e lectronically] signed by IDANIA De La Vega on SatApr 29 2018 06:49:08 T-0500 ([facility] Time)
[2018-04-29] MEDS: ASPIRIN EC 325 MG TABLET PO SCH (08:00)
[2018-04-29] MEDS: LOSARTAN/HCTZ 50-12.5 PO SCH (08:03)
[2018-04-29] MEDS: MONTELUKAST 10 MG TAB PO SCH (08:04)
[2018-04-29] MEDS: GABAPENTIN 400 MG CAP PO SCH ×3 (08:04→20:42)
[2018-04-29] MEDS: AMLODIPINE 10 MG TAB PO SCH (08:04)
[2018-04-29] MEDS: RANITIDINE 150 MG TABLET PO SCH (08:04)
--- NOTE | 2018-04-29 12:54 | P.PN ---
Subjective Date of Service: 04/29/18 Chief Complaint: STABLE , NO CHANGES. Subjective: Improving SHE IS STABLE , FEELING BETTER. ABLE TO AMBULATE. BACK PAIN FROM PT YESTERDAY. TOOK TRAMADOL. Review of Systems 10-point ROS is otherwise unremarkable Physical Examination - Vital Signs Temperature: 97.1 F Blood Pressure: 135/75 Pulse: 72 Respirations: 16 Pulse Ox (%): 98 - Physical Exam General: Alert, Mild distress HEENT: Atraumatic, PERRLA, EOMI Neck: Supple, JVD not distended Respiratory: Clear to auscultation bilaterally, Normal air movement Cardiovascular: Regular rate/rhythm, Normal S1 S2 Gastrointestinal: Normal bowel sounds, No tenderness Musculoskeletal: No tenderness Integumentary: No rashes Neurological: Normal speech, Normal tone, Normal affect Lymphatics: No axilla or inguinal lymphadenopathy - Studies Medications List Reviewed: Yes Assessment And Plan - Current Problems (Diagnosis) (1) Thalamic infarct, acute Onset Date: 04/23/18 Current Visit: No Status: Acute Plan: PT DAILY ASPIRIN DAILY BP CONTROL STATINS. RESUME PT BP MEDS RAISED NO CHANGES. NO CHANGES. CONT PT. BPMEDS REDUCED.
--- NOTE | 2018-04-29 15:24 | FAST ---
SHIFT START DATE/TIME: 04/29/2018 07:00 (CDT) SHIFT END DATE/TIME: 04/29/2018 19:00 (CDT) NAME RADHA HAAS DATE OF : 1940 DATE OF ADMISSION: 04/24/2018 16:51 (CDT) PHONE: AGE: 77 [facility] [place]# [id number] GENDER: Female ENCOUNTER PHYSICIAN: Dr. Jack Marsh M.D. ADMISSION DIAGNOSIS: - Stroke 01 - Left Body (Right Brain) (01.1) ACUTE THALAMIC INFARCT. EATING: EATING - STEP 1: Does the patient require assistance when eating? Yes. EATING - STEP 2: Does the patient require the assistance of a helper? No, patient only requires an assistive device, O R s/he takes more than reasonable time to eat, OR there is a safety concern, OR s/he requires modifie d food consistency EATING - SCORE: 6-VIVEK GROOMING: Comb/brush hair Oral care Wash, rinse, and dry face Wash, rinse, and dry hands GROOMING - STEP 1: Does the patient require assistance when grooming? Yes. GROOMING - STEP 2: Does the patient require the assistance of a helper? No. The patient only requires an assistive devic e, OR takes more than reasonable time to groom, OR there is a concern for safety as the patient groom s GROOMING - SCORE: 6-VIVEK BATHING: Activity did not occur on this shift BATHING - SCORE: 0-UNK DRESSING - UPPER BODY: T-shirt/pullover shirt (four steps) ARTICLES SCORE Total number of steps: 4 DRESSING - UPPER BODY - STEP 1: Does the patient require help when dressing above the waist? Yes. DRESSING - UPPER BODY - STEP 2: Does the patient require the assistance of a helper? No. Patient only requires an assistive device, s uch as a button hook, velcro, or aqueduct and reservoir keeper. OR s/he takes more than reasonable time as s/he dresses the upper body. OR there is a concern for safety when s/he dresses the upper body DRESSING - UPPER BODY - SCORE: 6-VIVEK DRESSING - LOWER BODY: ARTICLES SCORE Total number of steps: 0 DRESSING - LOWER BODY - STEP 1: Does the patient require help when dressing below the waist? Yes. DRESSING - LOWER BODY - STEP 2: Does the patient require the assistance of a helper? No. Patient requires an assistive device such as a aqueduct and reservoir keeper. OR s/he takes more than reasonable time as s/he dresses the lower body, OR there is a con cern for safety when s/he dresses the lower body DRESSING - LOWER BODY - SCORE: 6-VIVEK TOILETING: TOILETING - STEP 1: Does the patient require assistance with toileting? Yes. TOILETING - STEP 2: Does the patient require the assistance of a helper? No. TOILETING - SCORE: 6-VIVEK BLADDER MANAGEMENT: BLADDER MANAGEMENT - STEP 1: Does the patient control the bladder completely and intentionally without equipment or devices or med ications, and is always continent? Yes. BLADDER MANAGEMENT - SCORE: 7-IND BLADDER MANAGEMENT - FREQUENCY OF ACCIDENTS: BLADDER MANAGEMENT(FA) - STEP 1: How many accidents has the patient had during the current shift? 0 BOWEL MANAGEMENT: Activity did not occur on this shift BOWEL MANAGEMENT - SCORE: 7-IND BOWEL MANAGEMENT - FREQUENCY OF ACCIDENTS: BOWEL MANAGEMENT(FA) - STEP 1: How many accidents has the patient had during the current shift? 0 TRANSFERS: BED, CHAIR, WHEELCHAIR: TRANSFERS: BED, CHAIR, WHEELCHAIR - STEP 1: Does the patient require assistance with bed, chair, or wheelchair transfers? Yes. TRANSFERS: BED, CHAIR, WHEELCHAIR - STEP 2: Does the patient require the assistance of a helper? No. Patient only requires an assistive device fo r bed, chair, wheelchair transfers such as a sliding board, grab bar, or brace, OR s/he takes more th an reasonable time, OR there is a safety concern when s/he performs the transfers TRANSFERS: BED, CHAIR, WHEELCHAIR - SCORE: 6-VIVEK TRANSFERS: TOILET: TRANSFERS: TOILET - STEP 1: Does the patient require assistance with toilet transfers? Yes. TRANSFERS: TOILET - STEP 2: Does the patient require the assistance of a helper? No. Patient only requires an assistive device strange ch as a grab bar or special seat, OR s/he takes more than reasonable time to perform toilet transfers , OR there is a safety concern when s/he performs toilet transfers. TRANSFERS: TOILET - SCORE: 6-VIVEK TRANSFERS: SHOWER: Activity did not occur on this shift TRANSFERS: SHOWER - SCORE: 0-UNK TRANSFERS: TUB: Activity did not occur on this shift TRANSFERS: TUB - SCORE: 0-UNK LOCOMOTION: WALK: LOCOMOTION: WALK - STEP 1: Does the patient need help to walk 150 feet? Yes. LOCOMOTION: WALK - STEP 2: How much assistance does the patient require to walk a minimum of 150 feet? Only supervision, cuing, or coaxing LOCOMOTION: WALK - SCORE: 5-SUP LOCOMOTION: WHEELCHAIR: Activity did not occur on this shift LOCOMOTION: WHEELCHAIR - SCORE: 0-UNK COMPREHENSION: COMPREHENSION: TYPE: Both COMPREHENSION - STEP 1: Does the patient require help to understand complex and abstract ideas (such as current events, finan jasbir, discharge planning, medical issues, relationships, etc)? No. COMPREHENSION - STEP 2: Does the patient need extra time, require an assistive device (such as glasses, hearing aids, or an a ugmentative communication system), OR does s/he have mild difficulty expressing complex and abstract ideas (including mild dysarthria or mild word-finding problems)? Yes. COMPREHENSION - SCORE: 6-VIVEK EXPRESSION EXPRESSION: TYPE: Both EXPRESSION - STEP 1: Does the patient require help expressing complex and abstract ideas (such as current events, finances , discharge planning, medical issues, relationships, etc)? No. EXPRESSION - STEP 2: Does the patient need extra time, require an assistive device (such as augmentive communication syste m or a communication board), OR does s/he have mild difficulty expressing complex and abstract ideas (including mild dysarthria or mild word-find problems)? Yes. EXPRESSION - SCORE: 6-VIVEK SOCIAL INTERACTION: SOCIAL INTERACTION - STEP 1: Does the patient require a helper to interact with others in social and therapeutic situations? No. SOCIAL INTERACTION - STEP 2: Does the patient need extra time in social situations, OR does s/he interact with staff, other patien ts, and family members ONLY in structured environments, OR does s/he require medication for social in teraction? No. SOCIAL INTERACTION - SCORE: 7-IND PROBLEM SOLVING: PROBLEM SOLVING - STEP 1: Does the patient need help to solve complex problems such as managing a checking account or confronti ng interpersonal problems? No. PROBLEM SOLVING - STEP 2: Does the patient require extra time to make decisions or solve problems, OR does s/he have slight dif ficulty reading, initiating, or self-correcting in unfamiliar situations? Yes, patient needs extra ti me. PROBLEM SOLVING - SCORE: 6-VIVEK MEMORY: MEMORY - STEP 1: Does the patient need help to remember frequently encountered people, daily routines, and executing r equests? No. MEMORY - STEP 2: Does the patient have slight difficulty recognizing frequently encountered people, daily routines, or executing requests without the need for repetition or using self-initiated or environmental cues to remember? Yes. MEMORY - SCORE: 6-VIVEK SIGNATURE PANEL: The following modified sections: Eating - Score, Grooming - Score, Bathing - Score, Dressing - Upper Body - Score, Dressing - Lower Body - Score, Toileting - Score, Bladder Management - Score, Bowel Man agement - Score, Transfers: Bed, Chair, Wheelchair - Score, Transfers: Toilet - Score, Transfers: Yadi wer - Score, Transfers: Tub - Score, Locomotion: Walk - Score, Locomotion: Wheelchair - Score, Compre hension - Score, Expression - Score, Social Interaction - Score, Problem Solving - Score, Memory - Sc ore were [electronically] signed by Theresa Moeller C.N.A. on SatApr 29 2018 14:25:09 T-0500 ([facility])
[2018-04-29] MEDS: ENOXAPARIN 30 MG/0.3 ML SQ SCH (17:26)
[2018-04-29] MEDS: ACETAMINOPHEN 325 MG TABLET PO PRN (17:26)
--- NOTE | 2018-04-29 17:44 | FAST ---
ENCOUNTER DATE AND TIME: 04/29/2018 08:00 (CDT) NAME RADHA HAAS DATE OF : 1940 DATE OF ADMISSION: 04/24/2018 16:51 (CDT) PHONE: AGE: 77 N# [id number] GENDER: Female ENCOUNTER PHYSICIAN: Dr. Jack Marsh M.D. ADMISSION DIAGNOSIS: - Stroke 01 - Left Body (Right Brain) (01.1) ACUTE THALAMIC INFARCT. EATING: Activity did not occur on this shift EATING - SCORE: 0-UNK GROOMING: Activity did not occur on this shift GROOMING - SCORE: 0-UNK BATHING: Activity did not occur on this shift BATHING - SCORE: 0-UNK DRESSING - UPPER BODY: Activity did not occur on this shift Patient is not dressing in public clothing ARTICLES SCORE Total number of steps: 0 DRESSING - UPPER BODY - SCORE: 0-UNK DRESSING - LOWER BODY: Activity did not occur on this shift Patient is not dressing in public clothing ARTICLES SCORE Total number of steps: 0 DRESSING - LOWER BODY - SCORE: 0-UNK TOILETING: Activity did not occur on this shift TOILETING - SCORE: 0-UNK BLADDER MANAGEMENT: Activity did not occur on this shift BLADDER MANAGEMENT - SCORE: 7-IND BOWEL MANAGEMENT: Activity did not occur on this shift BOWEL MANAGEMENT - SCORE: 7-IND TRANSFERS: BED, CHAIR, WHEELCHAIR: TRANSFERS: BED, CHAIR, WHEELCHAIR - STEP 1: Does the patient require assistance with bed, chair, or wheelchair transfers? Yes. TRANSFERS: BED, CHAIR, WHEELCHAIR - STEP 2: Does the patient require the assistance of a helper? No. Patient only requires an assistive device fo r bed, chair, wheelchair transfers such as a sliding board, grab bar, or brace, OR s/he takes more th an reasonable time, OR there is a safety concern when s/he performs the transfers TRANSFERS: BED, CHAIR, WHEELCHAIR - SCORE: 6-VIVEK TRANSFERS: TOILET: Activity did not occur on this shift TRANSFERS: TOILET - SCORE: 0-UNK TRANSFERS: SHOWER: Activity did not occur on this shift TRANSFERS: SHOWER - SCORE: 0-UNK TRANSFERS: TUB: Activity did not occur on this shift TRANSFERS: TUB - SCORE: 0-UNK LOCOMOTION: WALK: LOCOMOTION: WALK - STEP 1: Does the patient need help to walk 150 feet? Yes. LOCOMOTION: WALK - STEP 2: How much assistance does the patient require to walk a minimum of 150 feet? Only supervision, cuing, or coaxing LOCOMOTION: WALK - SCORE: 5-SUP LOCOMOTION: WHEELCHAIR: Activity did not occur on this shift LOCOMOTION: WHEELCHAIR - SCORE: 0-UNK LOCOMOTION: STAIRS: LOCOMOTION: STAIRS - STEP 1: Does the patient need help to go up and down 12 to 14 stairs? Yes. LOCOMOTION: STAIRS - STEP 2: How much assistance does the patient need from the helper to go a minimum of 12 to 14 stairs? Only strange pervision, cuing, or coaxing LOCOMOTION: STAIRS - SCORE: 5-SUP COMPREHENSION: COMPREHENSION - SCORE: 0-UNK EXPRESSION EXPRESSION - SCORE: 0-UNK SOCIAL INTERACTION: SOCIAL INTERACTION - SCORE: 0-UNK PROBLEM SOLVING: PROBLEM SOLVING - SCORE: 0-UNK MEMORY: MEMORY - SCORE: 0-UNK SIGNATURE PANEL: The following modified sections: Transfers: Bed, Chair, Wheelchair - Score, Transfers: Toilet - Score , Locomotion: Walk - Score, Locomotion: Wheelchair - Score, Locomotion: Stairs - Score were [electron bee] signed by Kumar Donato PT on SatApr 29 2018 16:44:18 T-0500 ([facility] Day[facility] Time)
--- NOTE | 2018-04-29 19:24 | R.PN ---
ENCOUNTER DATE AND TIME: 04/29/2018 18:21 (CDT) NAME RADHA HAAS DATE OF : 1940 DATE OF ADMISSION: 04/24/2018 16:51 (CDT) ACUTE THALAMIC INFARCTCHIEF COMPLAINT: Stroke with incoordination. SUBJECTIVE: Pt denied any Shortness of Breath. Pt denied any depression. Ambulated over 500' without an assistive device with standby assistance. Ascended and descended 25 s teps with standby assistance. Ambulated 250 feet x 3 with standby assistance using a rolling walker. Up and down 30 steps with jordan dby assistance. VITAL SIGNS Temperature: 97.1 F SBP/DBP: 137/70 Pulse: 72 Resp: 16 MEDICATION ALLERGIES: PENICILLIN STREPTOMYCIN ENVIRONMENTAL ALLERGIES: None Known - Substance Allergies None Known - Other Allergies None Known NURSING: - Shower allowing shower - Bladder care per protocol - Skin care per protocol PRECAUTIONS: - Fall Precaution Bed and chair alarm ACTIVITIES OOB only with supervision THERAPIES: - Occupational Therapy Evaluate and Treat. Visual Perceptual Training. Cognitive Retraining. - Speech Therapy Cognitive Training. Memory Strategies. Speech Intelligibility Training. Expressive Language Skills. R eceptive Language Skills. - Physical Therapy Evaluate and Treat. PHYSICAL EXAM - Gen Alert and awake Lying in bed No apparent distress Oriented to: person, time, and place - Vital Signs Temperature: 97 F SBP/DBP: 189/81 Pulse: 65 Resp: 16 - Skin No skin breakdown. Normacephalic - Eyes No abnormalities - ENMT No abnormalities - Neck No abnormalities - CVS RRR - Chest Clear - Resp Clear to auscultation - Abd Soft - GI Non distended Deferred - No abnormalities - Ext No significant edema - MSK No Stiffness - Neuro Incoordination, mild lower extremity weakness and dysmetria, unsteady gait - Psych No abnormalities ASSESSMENT: Pt. is a 77 yo Right-handed white female.On 04/22/2018 Pt. presented to [facility] with sudden onset of left-side weakness.On 04/22/2018 she was admitted to [facility] with diagnosis ACUTE THALAMIC INFARCT.Her impairment category is Stroke 01 - Left Body (Ri ght Brain) (01.1).Pre-morbidly, Pt. was independent/mod-I in Sphincter Control, Transfers Control, Co mmunication, Social Cognition, Self-Care, and Locomotion; and she had good Sphincter Control.Currentl y, she has deficits of Safety Awareness, Transfers Control, Balance, Endurance, Locomotion, and Self- Care.Pt. is now referred to [facility] for acute in-patient rehabilitation in order to maximize patient's functional independence in activities of daily living, strength, ROM, and mobility.- Rehab Goal Patient has realistic goal of being discharged at assistance level 6-Kim to reside at Home with Fam lul/Relatives. MDM/PLAN: - Physical Therapy Edema - to improve, our physical therapists will perform initial evaluation of pt's status upon admi ssion and devise an individualized program for Elevation Training, and Lymphedema Therapy FUNCTIONAL STATUS: UPDATED AT WEEKLY TEAM CONFERENCE - Bladder Same accident frequency: 7-Ind - No accidents in the past 7 days - Bowel Same accident frequency: 7-Ind - No accidents in the past 7 days - Walking Same score based on distance walked: 3(>=150ft) FUNCTIONAL STATUS: - Self-Care A. Eating Ind B. Grooming Kim C. Bathing sup D. Dressing - Upper sup E. Dressing - Lower sup F. Toileting sup - Sphincter Control G: Bladder control Ind H: Bowel control Ind - Transfers Control I. Bed/Chair/Wheelchair sup J. Toilet sup K. Tub/Shower ADNO - Locomotion L. Walk/Wheelchair (W) sup M. Stairs ADNO - Communication N. Comprehension (B) Ind O. Expression (B) Ind - Social Cognition P. Social Interaction Ind Q. Problem Solving Ind R. Memory Ind - Endurance Fair - Balance Fair - Safety Awareness Fair CURRENT FUNC. DEFICITS: Safety Awareness, Transfers Control, Balance, Endurance, Locomotion, and Self-Care SIGNATURE PANEL: (CDT)
[2018-04-29] MEDS: ATORVASTATIN 40 MG TAB PO SCH (20:42)
--- NOTE | 2018-04-30 04:29 | FAST ---
SHIFT START DATE/TIME: 04/29/2018 19:00 (CDT) SHIFT END DATE/TIME: 04/30/2018 07:00 (CDT) NAME RADHA HAAS DATE OF : 1940 DATE OF ADMISSION: 04/24/2018 16:51 (CDT) PHONE: AGE: 77 N# [id number] GENDER: Female ENCOUNTER PHYSICIAN: Dr. Jack Marsh M.D. ADMISSION DIAGNOSIS: - Stroke 01 - Left Body (Right Brain) (01.1) ACUTE THALAMIC INFARCT. EATING: Activity did not occur on this shift EATING - SCORE: 0-UNK GROOMING: Activity did not occur on this shift GROOMING - SCORE: 0-UNK BATHING: Activity did not occur on this shift BATHING - SCORE: 0-UNK DRESSING - UPPER BODY: Activity did not occur on this shift ARTICLES SCORE Total number of steps: 0 DRESSING - UPPER BODY - SCORE: 0-UNK DRESSING - LOWER BODY: Activity did not occur on this shift ARTICLES SCORE Total number of steps: 0 DRESSING - LOWER BODY - SCORE: 0-UNK TOILETING: TOILETING - STEP 1: Does the patient require assistance with toileting? Yes. TOILETING - STEP 2: Does the patient require the assistance of a helper? No. TOILETING - SCORE: 6-VIVEK BLADDER MANAGEMENT: BLADDER MANAGEMENT - STEP 1: Does the patient control the bladder completely and intentionally without equipment or devices or med ications, and is always continent? Yes. BLADDER MANAGEMENT - SCORE: 7-IND BLADDER MANAGEMENT - FREQUENCY OF ACCIDENTS: BLADDER MANAGEMENT(FA) - STEP 1: How many accidents has the patient had during the current shift? 0 BOWEL MANAGEMENT: Activity did not occur on this shift BOWEL MANAGEMENT - SCORE: 7-IND BOWEL MANAGEMENT - FREQUENCY OF ACCIDENTS: BOWEL MANAGEMENT(FA) - STEP 1: How many accidents has the patient had during the current shift? 0 TRANSFERS: BED, CHAIR, WHEELCHAIR: TRANSFERS: BED, CHAIR, WHEELCHAIR - STEP 1: Does the patient require assistance with bed, chair, or wheelchair transfers? Yes. TRANSFERS: BED, CHAIR, WHEELCHAIR - STEP 2: Does the patient require the assistance of a helper? No. Patient only requires an assistive device fo r bed, chair, wheelchair transfers such as a sliding board, grab bar, or brace, OR s/he takes more th an reasonable time, OR there is a safety concern when s/he performs the transfers TRANSFERS: BED, CHAIR, WHEELCHAIR - SCORE: 6-VIVEK TRANSFERS: TOILET: TRANSFERS: TOILET - STEP 1: Does the patient require assistance with toilet transfers? Yes. TRANSFERS: TOILET - STEP 2: Does the patient require the assistance of a helper? No. Patient only requires an assistive device strange ch as a grab bar or special seat, OR s/he takes more than reasonable time to perform toilet transfers , OR there is a safety concern when s/he performs toilet transfers. TRANSFERS: TOILET - SCORE: 6-VIVEK TRANSFERS: SHOWER: Activity did not occur on this shift TRANSFERS: SHOWER - SCORE: 0-UNK TRANSFERS: TUB: Activity did not occur on this shift TRANSFERS: TUB - SCORE: 0-UNK LOCOMOTION: WALK: Activity did not occur on this shift LOCOMOTION: WALK - SCORE: 0-UNK LOCOMOTION: WHEELCHAIR: Activity did not occur on this shift LOCOMOTION: WHEELCHAIR - SCORE: 0-UNK COMPREHENSION: COMPREHENSION: TYPE: Both COMPREHENSION - STEP 1: Does the patient require help to understand complex and abstract ideas (such as current events, finan jasbir, discharge planning, medical issues, relationships, etc)? No. COMPREHENSION - STEP 2: Does the patient need extra time, require an assistive device (such as glasses, hearing aids, or an a ugmentative communication system), OR does s/he have mild difficulty expressing complex and abstract ideas (including mild dysarthria or mild word-finding problems)? Yes. COMPREHENSION - SCORE: 6-VIVEK EXPRESSION EXPRESSION: TYPE: Both EXPRESSION - STEP 1: Does the patient require help expressing complex and abstract ideas (such as current events, finances , discharge planning, medical issues, relationships, etc)? No. EXPRESSION - STEP 2: Does the patient need extra time, require an assistive device (such as augmentive communication syste m or a communication board), OR does s/he have mild difficulty expressing complex and abstract ideas (including mild dysarthria or mild word-find problems)? No. EXPRESSION - SCORE: 7-IND SOCIAL INTERACTION: SOCIAL INTERACTION - STEP 1: Does the patient require a helper to interact with others in social and therapeutic situations? No. SOCIAL INTERACTION - STEP 2: Does the patient need extra time in social situations, OR does s/he interact with staff, other patien ts, and family members ONLY in structured environments, OR does s/he require medication for social in teraction? No. SOCIAL INTERACTION - SCORE: 7-IND PROBLEM SOLVING: PROBLEM SOLVING - STEP 1: Does the patient need help to solve complex problems such as managing a checking account or confronti ng interpersonal problems? No. PROBLEM SOLVING - STEP 2: Does the patient require extra time to make decisions or solve problems, OR does s/he have slight dif ficulty reading, initiating, or self-correcting in unfamiliar situations? No. PROBLEM SOLVING - SCORE: 7-IND MEMORY: MEMORY - STEP 1: Does the patient need help to remember frequently encountered people, daily routines, and executing r equests? No. MEMORY - STEP 2: Does the patient have slight difficulty recognizing frequently encountered people, daily routines, or executing requests without the need for repetition or using self-initiated or environmental cues to remember? No. MEMORY - SCORE: 7-IND SIGNATURE PANEL: The following modified sections: Eating - Score, Grooming - Score, Bathing - Score, Dressing - Upper Body - Score, Dressing - Lower Body - Score, Toileting - Score, Bladder Management - Score, Bowel Man agement - Score, Transfers: Bed, Chair, Wheelchair - Score, Transfers: Toilet - Score, Transfers: Yadi wer - Score, Transfers: Tub - Score, Locomotion: Walk - Score, Locomotion: Wheelchair - Score, Compre hension - Score, Expression - Score, Social Interaction - Score, Problem Solving - Score, Memory - Sc ore were [electronically] signed by Shell Sepulveda RN on SatApr 30 2018 03:29:31 T-0500 (Cent[facility] [place] Daylight Time)
[2018-04-30] MEDS: ACETAMINOPHEN 325 MG TABLET PO PRN (05:06)
[2018-04-30] MEDS: LEVOTHYROXINE SOD 0.05 MG TABLET PO SCH (05:07)
[2018-04-30] MEDS: METOPROLOL XL 50 MG TAB PO SCH ×2 (05:07→17:08)
[2018-04-30] MEDS: AMLODIPINE 10 MG TAB PO SCH (08:08)
[2018-04-30] MEDS: ASPIRIN EC 325 MG TABLET PO SCH (08:09)
[2018-04-30] MEDS: MONTELUKAST 10 MG TAB PO SCH (08:09)
[2018-04-30] MEDS: LOSARTAN/HCTZ 50-12.5 PO SCH (08:09)
[2018-04-30] MEDS: GABAPENTIN 400 MG CAP PO SCH ×3 (08:09→20:06)
[2018-04-30] MEDS: RANITIDINE 150 MG TABLET PO SCH (08:09)
--- NOTE | 2018-04-30 11:59 | FAST ---
SHIFT START DATE/TIME: 04/30/2018 07:00 (CDT) SHIFT END DATE/TIME: 04/30/2018 19:00 (CDT) NAME RADHA HAAS DATE OF : 1940 DATE OF ADMISSION: 04/24/2018 16:51 (CDT) PHONE: AGE: 77 [facility]# [id number] GENDER: Female ENCOUNTER PHYSICIAN: Dr. Jack Marsh M.D. ADMISSION DIAGNOSIS: - Stroke 01 - Left Body (Right Brain) (01.1) ACUTE THALAMIC INFARCT. EATING: EATING - STEP 1: Does the patient require assistance when eating? No. EATING - SCORE: 7-IND GROOMING: Comb/brush hair Oral care Wash, rinse, and dry face Wash, rinse, and dry hands GROOMING - STEP 1: Does the patient require assistance when grooming? Yes. GROOMING - STEP 2: Does the patient require the assistance of a helper? No. The patient only requires an assistive devic e, OR takes more than reasonable time to groom, OR there is a concern for safety as the patient groom s GROOMING - SCORE: 6-VIVEK BATHING: Activity did not occur on this shift BATHING - SCORE: 0-UNK DRESSING - UPPER BODY: Activity did not occur on this shift ARTICLES SCORE Total number of steps: 0 DRESSING - UPPER BODY - SCORE: 0-UNK DRESSING - LOWER BODY: Activity did not occur on this shift ARTICLES SCORE Total number of steps: 0 DRESSING - LOWER BODY - SCORE: 0-UNK TOILETING: TOILETING - STEP 1: Does the patient require assistance with toileting? Yes. TOILETING - STEP 2: Does the patient require the assistance of a helper? No. TOILETING - SCORE: 6-VIVEK BLADDER MANAGEMENT: BLADDER MANAGEMENT - STEP 1: Does the patient control the bladder completely and intentionally without equipment or devices or med ications, and is always continent? Yes. BLADDER MANAGEMENT - SCORE: 7-IND BOWEL MANAGEMENT: Activity did not occur on this shift BOWEL MANAGEMENT - SCORE: 7-IND TRANSFERS: BED, CHAIR, WHEELCHAIR: TRANSFERS: BED, CHAIR, WHEELCHAIR - STEP 1: Does the patient require assistance with bed, chair, or wheelchair transfers? Yes. TRANSFERS: BED, CHAIR, WHEELCHAIR - STEP 2: Does the patient require the assistance of a helper? No. Patient only requires an assistive device fo r bed, chair, wheelchair transfers such as a sliding board, grab bar, or brace, OR s/he takes more th an reasonable time, OR there is a safety concern when s/he performs the transfers TRANSFERS: BED, CHAIR, WHEELCHAIR - SCORE: 6-VIVEK TRANSFERS: TOILET: TRANSFERS: TOILET - STEP 1: Does the patient require assistance with toilet transfers? Yes. TRANSFERS: TOILET - STEP 2: Does the patient require the assistance of a helper? No. Patient only requires an assistive device strange ch as a grab bar or special seat, OR s/he takes more than reasonable time to perform toilet transfers , OR there is a safety concern when s/he performs toilet transfers. TRANSFERS: TOILET - SCORE: 6-VIVEK TRANSFERS: SHOWER: Activity did not occur on this shift TRANSFERS: SHOWER - SCORE: 0-UNK TRANSFERS: TUB: Activity did not occur on this shift TRANSFERS: TUB - SCORE: 0-UNK LOCOMOTION: WALK: Activity did not occur on this shift LOCOMOTION: WALK - SCORE: 0-UNK LOCOMOTION: WHEELCHAIR: Activity did not occur on this shift LOCOMOTION: WHEELCHAIR - SCORE: 0-UNK COMPREHENSION: COMPREHENSION - SCORE: 0-UNK EXPRESSION EXPRESSION - SCORE: 0-UNK SOCIAL INTERACTION: SOCIAL INTERACTION - SCORE: 0-UNK PROBLEM SOLVING: PROBLEM SOLVING - SCORE: 0-UNK MEMORY: MEMORY - SCORE: 0-UNK SIGNATURE PANEL: The following modified sections: Eating - Score, Grooming - Score, Bathing - Score, Dressing - Upper Body - Score, Dressing - Lower Body - Score, Toileting - Score, Bladder Management - Score, Bowel Man agement - Score, Transfers: Bed, Chair, Wheelchair - Score, Transfers: Toilet - Score, Transfers: Yadi wer - Score, Transfers: Tub - Score, Locomotion: Walk - Score, Locomotion: Wheelchair - Score, Compre hension - Score, Expression - Score, Social Interaction - Score, Problem Solving - Score, Memory - Sc ore were [electronically] signed by Carlton Hansen on SatApr 30 2018 10:59:26 GMT-0500 (Central Daylight Time)
[2018-04-30] MEDS: ENOXAPARIN 30 MG/0.3 ML SQ SCH (16:26)
--- NOTE | 2018-04-30 16:56 | FAST ---
ENCOUNTER DATE AND TIME: 04/30/2018 08:00 (CDT) NAME RADHA HAAS DATE OF : 1940 DATE OF ADMISSION: 04/24/2018 16:51 (CDT) PHONE: AGE: 77 N# [id number] GENDER: Female ENCOUNTER PHYSICIAN: Dr. Jack Marsh M.D. ADMISSION DIAGNOSIS: - Stroke 01 - Left Body (Right Brain) (01.1) ACUTE THALAMIC INFARCT. EATING: Activity did not occur on this shift EATING - SCORE: 0-UNK GROOMING: Activity did not occur on this shift GROOMING - SCORE: 0-UNK BATHING: Activity did not occur on this shift BATHING - SCORE: 0-UNK DRESSING - UPPER BODY: Activity did not occur on this shift Patient is not dressing in public clothing ARTICLES SCORE Total number of steps: 0 DRESSING - UPPER BODY - SCORE: 0-UNK DRESSING - LOWER BODY: Activity did not occur on this shift Patient is not dressing in public clothing ARTICLES SCORE Total number of steps: 0 DRESSING - LOWER BODY - SCORE: 0-UNK TOILETING: Activity did not occur on this shift TOILETING - SCORE: 0-UNK BLADDER MANAGEMENT: Activity did not occur on this shift BLADDER MANAGEMENT - SCORE: 7-IND BOWEL MANAGEMENT: Activity did not occur on this shift BOWEL MANAGEMENT - SCORE: 7-IND TRANSFERS: BED, CHAIR, WHEELCHAIR: TRANSFERS: BED, CHAIR, WHEELCHAIR - STEP 1: Does the patient require assistance with bed, chair, or wheelchair transfers? No. TRANSFERS: BED, CHAIR, WHEELCHAIR - SCORE: 7-IND TRANSFERS: TOILET: Activity did not occur on this shift TRANSFERS: TOILET - SCORE: 0-UNK TRANSFERS: SHOWER: Activity did not occur on this shift TRANSFERS: SHOWER - SCORE: 0-UNK TRANSFERS: TUB: Activity did not occur on this shift TRANSFERS: TUB - SCORE: 0-UNK LOCOMOTION: WALK: LOCOMOTION: WALK - STEP 1: Does the patient need help to walk 150 feet? No. LOCOMOTION: WALK - STEP 2: Does the patient need an assistive device (such as an orthosis, prosthesis, crutches, or walker) to g o 150 feet, OR does s/he take more than reasonable time, OR is there a concern for safety? No. LOCOMOTION: WALK - SCORE: 7-IND LOCOMOTION: WHEELCHAIR: Activity did not occur on this shift LOCOMOTION: WHEELCHAIR - SCORE: 0-UNK LOCOMOTION: STAIRS: LOCOMOTION: STAIRS - STEP 1: Does the patient need help to go up and down 12 to 14 stairs? No. LOCOMOTION: STAIRS - STEP 2: Does the patient require an assistive device - such as handrails or cane - to go up and down one flig ht of stairs, OR does s/he take more than reasonable time, OR is there a concern for safety? Yes, the patient requires an assistive device LOCOMOTION: STAIRS - SCORE: 6-VIVEK COMPREHENSION: COMPREHENSION - SCORE: 0-UNK EXPRESSION EXPRESSION - SCORE: 0-UNK SOCIAL INTERACTION: SOCIAL INTERACTION - SCORE: 0-UNK PROBLEM SOLVING: PROBLEM SOLVING - SCORE: 0-UNK MEMORY: MEMORY - SCORE: 0-UNK SIGNATURE PANEL: The following modified sections: Transfers: Bed, Chair, Wheelchair - Score, Transfers: Toilet - Score , Locomotion: Walk - Score, Locomotion: Wheelchair - Score, Locomotion: Stairs - Score were [electron bee] signed by Kumar Donato, PT on SatApr 30 2018 15:56:55 T-0500 (Central Daylight Time)
[2018-04-30] MEDS: ATORVASTATIN 40 MG TAB PO SCH (20:06)
--- NOTE | 2018-05-01 03:11 | FAST ---
SHIFT START DATE/TIME: 04/30/2018 19:00 (CDT) SHIFT END DATE/TIME: 05/01/2018 07:00 (CDT) NAME RADHA HAAS DATE OF : 1940 DATE OF ADMISSION: 04/24/2018 16:51 (CDT) PHONE: AGE: 77 [facility]# [id number] GENDER: Female ENCOUNTER PHYSICIAN: Dr. Jack Marsh M.D. ADMISSION DIAGNOSIS: - Stroke 01 - Left Body (Right Brain) (01.1) ACUTE THALAMIC INFARCT. EATING: Activity did not occur on this shift EATING - SCORE: 0-UNK GROOMING: Activity did not occur on this shift GROOMING - SCORE: 0-UNK BATHING: Activity did not occur on this shift BATHING - SCORE: 0-UNK DRESSING - UPPER BODY: Patient is not dressing in public clothing ARTICLES SCORE Total number of steps: 0 DRESSING - UPPER BODY - SCORE: 0-UNK DRESSING - LOWER BODY: Patient is not dressing in public clothing ARTICLES SCORE Total number of steps: 0 DRESSING - LOWER BODY - SCORE: 0-UNK TOILETING: TOILETING - STEP 1: Does the patient require assistance with toileting? Yes. TOILETING - STEP 2: Does the patient require the assistance of a helper? No. TOILETING - SCORE: 6-VIVEK BLADDER MANAGEMENT: BLADDER MANAGEMENT - STEP 1: Does the patient control the bladder completely and intentionally without equipment or devices or med ications, and is always continent? No. BLADDER MANAGEMENT - STEP 2: Does the patient require the assistance of a helper? No, patient requires and independently uses an a ssistive device, such as a urinal, bedpan, bedside commode, catheter, absorbent pad, or collecting de vice BLADDER MANAGEMENT - SCORE: 6-VIVEK BOWEL MANAGEMENT: Activity did not occur on this shift BOWEL MANAGEMENT - SCORE: 7-IND TRANSFERS: BED, CHAIR, WHEELCHAIR: TRANSFERS: BED, CHAIR, WHEELCHAIR - STEP 1: Does the patient require assistance with bed, chair, or wheelchair transfers? Yes. TRANSFERS: BED, CHAIR, WHEELCHAIR - STEP 2: Does the patient require the assistance of a helper? No. Patient only requires an assistive device fo r bed, chair, wheelchair transfers such as a sliding board, grab bar, or brace, OR s/he takes more th an reasonable time, OR there is a safety concern when s/he performs the transfers TRANSFERS: BED, CHAIR, WHEELCHAIR - SCORE: 6-VIVEK TRANSFERS: TOILET: TRANSFERS: TOILET - STEP 1: Does the patient require assistance with toilet transfers? Yes. TRANSFERS: TOILET - STEP 2: Does the patient require the assistance of a helper? No. Patient only requires an assistive device strange ch as a grab bar or special seat, OR s/he takes more than reasonable time to perform toilet transfers , OR there is a safety concern when s/he performs toilet transfers. TRANSFERS: TOILET - SCORE: 6-VIVEK TRANSFERS: SHOWER: Activity did not occur on this shift TRANSFERS: SHOWER - SCORE: 0-UNK TRANSFERS: TUB: Activity did not occur on this shift TRANSFERS: TUB - SCORE: 0-UNK LOCOMOTION: WALK: Activity did not occur on this shift LOCOMOTION: WALK - SCORE: 0-UNK LOCOMOTION: WHEELCHAIR: Activity did not occur on this shift LOCOMOTION: WHEELCHAIR - SCORE: 0-UNK COMPREHENSION: COMPREHENSION - STEP 1: Does the patient require help to understand complex and abstract ideas (such as current events, finan jasbir, discharge planning, medical issues, relationships, etc)? No. COMPREHENSION - STEP 2: Does the patient need extra time, require an assistive device (such as glasses, hearing aids, or an a ugmentative communication system), OR does s/he have mild difficulty expressing complex and abstract ideas (including mild dysarthria or mild word-finding problems)? Yes. COMPREHENSION - SCORE: 6-VIVEK EXPRESSION EXPRESSION - STEP 1: Does the patient require help expressing complex and abstract ideas (such as current events, finances , discharge planning, medical issues, relationships, etc)? No. EXPRESSION - STEP 2: Does the patient need extra time, require an assistive device (such as augmentive communication syste m or a communication board), OR does s/he have mild difficulty expressing complex and abstract ideas (including mild dysarthria or mild word-find problems)? No. EXPRESSION - SCORE: 7-IND SOCIAL INTERACTION: SOCIAL INTERACTION - STEP 1: Does the patient require a helper to interact with others in social and therapeutic situations? No. SOCIAL INTERACTION - STEP 2: Does the patient need extra time in social situations, OR does s/he interact with staff, other patien ts, and family members ONLY in structured environments, OR does s/he require medication for social in teraction? No. SOCIAL INTERACTION - SCORE: 7-IND PROBLEM SOLVING: PROBLEM SOLVING - STEP 1: Does the patient need help to solve complex problems such as managing a checking account or confronti ng interpersonal problems? No. PROBLEM SOLVING - STEP 2: Does the patient require extra time to make decisions or solve problems, OR does s/he have slight dif ficulty reading, initiating, or self-correcting in unfamiliar situations? No. PROBLEM SOLVING - SCORE: 7-IND MEMORY: MEMORY - STEP 1: Does the patient need help to remember frequently encountered people, daily routines, and executing r equests? No. MEMORY - STEP 2: Does the patient have slight difficulty recognizing frequently encountered people, daily routines, or executing requests without the need for repetition or using self-initiated or environmental cues to remember? No. MEMORY - SCORE: 7-IND SIGNATURE PANEL: The following modified sections: Eating - Score, Grooming - Score, Bathing - Score, Dressing - Upper Body - Score, Dressing - Lower Body - Score, Toileting - Score, Bladder Management - Score, Bowel Man agement - Score, Transfers: Bed, Chair, Wheelchair - Score, Transfers: Toilet - Score, Transfers: Yadi wer - Score, Transfers: Tub - Score, Locomotion: Walk - Score, Locomotion: Wheelchair - Score, Compre hension - Score, Expression - Score, Social Interaction - Score, Problem Solving - Score, Memory - Sc ore were [electronically] signed by Zaria Dickens RN on SatMay 01 2018 02:11:47 [facility]-0500 ([facility] Time)
[2018-05-01] MEDS: LEVOTHYROXINE SOD 0.05 MG TABLET PO SCH (05:13)
[2018-05-01] MEDS: METOPROLOL XL 50 MG TAB PO SCH (05:13)
[2018-05-01 05:58] LABS: Absolute Lymphocytes (CBC) 2.2 K/uL (0.7-4.9); Absolute Monocytes 0.6 K/uL (0.1-1.3); Absolute Neutrophil 3.8 K/uL (1.8-8.0); Basophils % 1.2 % (0-1.3); Eosinophils % 6.4 % (0-4.4); Hematocrit 40.3 % (36.0-45.0); Lymphocytes % 30.3 % (15.3-44.8); MCH 26.8 pg (27.0-35.0); MCV 83.1 fL (80-100); MPV 10.1 fL (7.6-11.3); Monocytes % 8.9 % (3.3-12.3); RBC Red Blood Cell Count 4.85 M/uL (3.86-4.86)
[2018-05-01 06:12] LABS: Albumin 3.2 g/dL (3.4-5.0); Potassium 3.8 mmol/L (3.5-5.1); Prealbumin 18.3 mg/dL (20-40)
[2018-05-01] MEDS: MONTELUKAST 10 MG TAB PO SCH (08:00)
[2018-05-01] MEDS: ASPIRIN EC 325 MG TABLET PO SCH (08:00)
[2018-05-01] MEDS: RANITIDINE 150 MG TABLET PO SCH (08:00)
[2018-05-01] MEDS: LOSARTAN/HCTZ 50-12.5 PO SCH (08:00)
[2018-05-01] MEDS: GABAPENTIN 400 MG CAP PO SCH (08:00)
[2018-05-01] MEDS: AMLODIPINE 10 MG TAB PO SCH (08:00)
[2018-05-01 08:02] VITALS: BP 118/70
[2018-05-01 10:30] VITALS: TEMP 98.2
--- NOTE | 2018-05-01 12:20 | P.PN ---
Subjective Date of Service: 05/01/18 Chief Complaint: STABLE , NO CHANGES. Subjective: Improving SHE IS STABLE , FEELING BETTER. ABLE TO AMBULATE. BACK PAIN FROM PT YESTERDAY. TOOK TRAMADOL. GOING HOME TODAY, STABLE. WILL USE CANE. Physical Examination - Vital Signs Temperature: 98.2 F Blood Pressure: 118/70 Pulse: 63 Respirations: 14 Pulse Ox (%): 98 - Studies Laboratory Data (last 24 hrs) 05/01/18 05:21: Sodium 137, Potassium 3.8, BUN 19 H, Creatinine 0.70, Glucose 108 H 05/01/18 05:21: WBC 7.1, Hgb 13.0, Hct 40.3, Plt Count 255 Medications List Reviewed: Yes Assessment And Plan - Current Problems (Diagnosis) (1) Thalamic infarct, acute Onset Date: 04/23/18 Current Visit: No Status: Acute Plan: PT DAILY ASPIRIN DAILY BP CONTROL STATINS. RESUME PT BP MEDS RAISED NO CHANGES. NO CHANGES. CONT PT. BPMEDS REDUCED.
--- NOTE | 2018-05-01 13:10 | P.PN ---
Subjective Date of Service: 04/30/18 Chief Complaint: STABLE , NO CHANGES. Subjective: Improving SHE IS STABLE , FEELING BETTER. ABLE TO AMBULATE. BACK PAIN FROM PT YESTERDAY. TOOK TRAMADOL. GOING HOME TODAY, STABLE. WILL USE CANE. Review of Systems 10-point ROS is otherwise unremarkable Physical Examination - Vital Signs Temperature: 98.2 F Blood Pressure: 118/70 Pulse: 63 Respirations: 14 Pulse Ox (%): 98 - Physical Exam General: Alert, In no apparent distress HEENT: Atraumatic, PERRLA, EOMI Neck: Supple, JVD not distended Respiratory: Clear to auscultation bilaterally, Normal air movement Cardiovascular: Regular rate/rhythm, Normal S1 S2 Gastrointestinal: Normal bowel sounds, No tenderness Musculoskeletal: No tenderness Integumentary: No rashes Neurological: Normal speech, Normal tone, Normal affect Lymphatics: No axilla or inguinal lymphadenopathy - Studies Laboratory Data (last 24 hrs) 05/01/18 05:21: Sodium 137, Potassium 3.8, BUN 19 H, Creatinine 0.70, Glucose 108 H 05/01/18 05:21: WBC 7.1, Hgb 13.0, Hct 40.3, Plt Count 255 Medications List Reviewed: Yes Assessment And Plan - Current Problems (Diagnosis) (1) Thalamic infarct, acute Onset Date: 04/23/18 Current Visit: No Status: Acute Plan: PT DAILY ASPIRIN DAILY BP CONTROL STATINS. RESUME PT BP MEDS RAISED NO CHANGES. NO CHANGES. CONT PT. BPMEDS REDUCED. REDUCE BP MEDS BP IS DOING LOT BETTER NOW.
--- NOTE | 2018-05-01 15:49 | FAST ---
SHIFT START DATE/TIME: 05/01/2018 07:00 (CDT) SHIFT END DATE/TIME: 05/01/2018 19:00 (CDT) NAME RADHA HAAS DATE OF : 1940 DATE OF ADMISSION: 04/24/2018 16:51 (CDT) PHONE: AGE: 77 [facility]# [id number] GENDER: Female ENCOUNTER PHYSICIAN: Dr. Jack Marsh M.D. ADMISSION DIAGNOSIS: - Stroke 01 - Left Body (Right Brain) (01.1) ACUTE THALAMIC INFARCT. EATING: EATING - STEP 1: Does the patient require assistance when eating? No. EATING - SCORE: 7-IND GROOMING: Comb/brush hair Oral care Wash, rinse, and dry face Wash, rinse, and dry hands GROOMING - STEP 1: Does the patient require assistance when grooming? Yes. GROOMING - STEP 2: Does the patient require the assistance of a helper? No. The patient only requires an assistive devic e, OR takes more than reasonable time to groom, OR there is a concern for safety as the patient groom s GROOMING - SCORE: 6-VIVEK BATHING: Activity did not occur on this shift BATHING - SCORE: 0-UNK DRESSING - UPPER BODY: Activity did not occur on this shift ARTICLES SCORE Total number of steps: 0 DRESSING - UPPER BODY - SCORE: 0-UNK DRESSING - LOWER BODY: Activity did not occur on this shift ARTICLES SCORE Total number of steps: 0 DRESSING - LOWER BODY - SCORE: 0-UNK TOILETING: TOILETING - STEP 1: Does the patient require assistance with toileting? Yes. TOILETING - STEP 2: Does the patient require the assistance of a helper? No. TOILETING - SCORE: 6-VIVEK BLADDER MANAGEMENT: BLADDER MANAGEMENT - STEP 1: Does the patient control the bladder completely and intentionally without equipment or devices or med ications, and is always continent? No. BLADDER MANAGEMENT - STEP 2: Does the patient require the assistance of a helper? No, patient requires and independently uses an a ssistive device, such as a urinal, bedpan, bedside commode, catheter, absorbent pad, or collecting de vice BLADDER MANAGEMENT - SCORE: 6-VIVEK BOWEL MANAGEMENT: BOWEL MANAGEMENT - STEP 1: Does the patient control bowels completely and intentionally without equipment devices or medications AND is always continent? Yes. BOWEL MANAGEMENT - SCORE: 7-IND TRANSFERS: BED, CHAIR, WHEELCHAIR: TRANSFERS: BED, CHAIR, WHEELCHAIR - STEP 1: Does the patient require assistance with bed, chair, or wheelchair transfers? Yes. TRANSFERS: BED, CHAIR, WHEELCHAIR - STEP 2: Does the patient require the assistance of a helper? No. Patient only requires an assistive device fo r bed, chair, wheelchair transfers such as a sliding board, grab bar, or brace, OR s/he takes more th an reasonable time, OR there is a safety concern when s/he performs the transfers TRANSFERS: BED, CHAIR, WHEELCHAIR - SCORE: 6-VIVEK TRANSFERS: TOILET: TRANSFERS: TOILET - STEP 1: Does the patient require assistance with toilet transfers? Yes. TRANSFERS: TOILET - STEP 2: Does the patient require the assistance of a helper? No. Patient only requires an assistive device strange ch as a grab bar or special seat, OR s/he takes more than reasonable time to perform toilet transfers , OR there is a safety concern when s/he performs toilet transfers. TRANSFERS: TOILET - SCORE: 6-VIVEK TRANSFERS: SHOWER: Activity did not occur on this shift TRANSFERS: SHOWER - SCORE: 0-UNK TRANSFERS: TUB: Activity did not occur on this shift TRANSFERS: TUB - SCORE: 0-UNK LOCOMOTION: WALK: Activity did not occur on this shift LOCOMOTION: WALK - SCORE: 0-UNK LOCOMOTION: WHEELCHAIR: Activity did not occur on this shift LOCOMOTION: WHEELCHAIR - SCORE: 0-UNK COMPREHENSION: COMPREHENSION - SCORE: 0-UNK EXPRESSION EXPRESSION - SCORE: 0-UNK SOCIAL INTERACTION: SOCIAL INTERACTION - SCORE: 0-UNK PROBLEM SOLVING: PROBLEM SOLVING - SCORE: 0-UNK MEMORY: MEMORY - SCORE: 0-UNK SIGNATURE PANEL: The following modified sections: Eating - Score, Grooming - Score, Bathing - Score, Dressing - Upper Body - Score, Dressing - Lower Body - Score, Toileting - Score, Bladder Management - Score, Bowel Man agement - Score, Transfers: Bed, Chair, Wheelchair - Score, Transfers: Toilet - Score, Transfers: Yadi wer - Score, Transfers: Tub - Score, Locomotion: Walk - Score, Locomotion: Wheelchair - Score, Compre hension - Score, Expression - Score, Social Interaction - Score, Problem Solving - Score, Memory - Sc ore were [electronically] signed by Carlton Hansen on SatMay 01 2018 14:49:25 GMT-0500 (Central Daylight Time)
--- NOTE | 2018-05-02 15:50 | FAST ---
ENCOUNTER DATE AND TIME: 05/01/2018 08:00 (CDT) NAME RADHA HAAS DATE OF : 1940 DATE OF ADMISSION: 04/24/2018 16:51 (CDT) PHONE: AGE: 77 N# [id number] GENDER: Female ENCOUNTER PHYSICIAN: Dr. Jack Marsh M.D. ADMISSION DIAGNOSIS: - Stroke 01 - Left Body (Right Brain) (01.1) ACUTE THALAMIC INFARCT. EATING: Activity did not occur on this shift EATING - SCORE: 0-UNK GROOMING: Activity did not occur on this shift GROOMING - SCORE: 0-UNK BATHING: Activity did not occur on this shift BATHING - SCORE: 0-UNK DRESSING - UPPER BODY: Activity did not occur on this shift Patient is not dressing in public clothing ARTICLES SCORE Total number of steps: 0 DRESSING - UPPER BODY - SCORE: 0-UNK DRESSING - LOWER BODY: Activity did not occur on this shift Patient is not dressing in public clothing ARTICLES SCORE Total number of steps: 0 DRESSING - LOWER BODY - SCORE: 0-UNK TOILETING: Activity did not occur on this shift TOILETING - SCORE: 0-UNK BLADDER MANAGEMENT: Activity did not occur on this shift BLADDER MANAGEMENT - SCORE: 7-IND BOWEL MANAGEMENT: Activity did not occur on this shift BOWEL MANAGEMENT - SCORE: 7-IND TRANSFERS: BED, CHAIR, WHEELCHAIR: TRANSFERS: BED, CHAIR, WHEELCHAIR - STEP 1: Does the patient require assistance with bed, chair, or wheelchair transfers? No. TRANSFERS: BED, CHAIR, WHEELCHAIR - SCORE: 7-IND TRANSFERS: TOILET: Activity did not occur on this shift TRANSFERS: TOILET - SCORE: 0-UNK TRANSFERS: SHOWER: Activity did not occur on this shift TRANSFERS: SHOWER - SCORE: 0-UNK TRANSFERS: TUB: Activity did not occur on this shift TRANSFERS: TUB - SCORE: 0-UNK LOCOMOTION: WALK: LOCOMOTION: WALK - STEP 1: Does the patient need help to walk 150 feet? No. LOCOMOTION: WALK - STEP 2: Does the patient need an assistive device (such as an orthosis, prosthesis, crutches, or walker) to g o 150 feet, OR does s/he take more than reasonable time, OR is there a concern for safety? No. LOCOMOTION: WALK - SCORE: 7-IND LOCOMOTION: WHEELCHAIR: Activity did not occur on this shift LOCOMOTION: WHEELCHAIR - SCORE: 0-UNK LOCOMOTION: STAIRS: LOCOMOTION: STAIRS - STEP 1: Does the patient need help to go up and down 12 to 14 stairs? No. LOCOMOTION: STAIRS - STEP 2: Does the patient require an assistive device - such as handrails or cane - to go up and down one flig ht of stairs, OR does s/he take more than reasonable time, OR is there a concern for safety? Yes, the patient requires an assistive device LOCOMOTION: STAIRS - SCORE: 6-VIVEK COMPREHENSION: COMPREHENSION - SCORE: 0-UNK EXPRESSION EXPRESSION - SCORE: 0-UNK SOCIAL INTERACTION: SOCIAL INTERACTION - SCORE: 0-UNK PROBLEM SOLVING: PROBLEM SOLVING - SCORE: 0-UNK MEMORY: MEMORY - SCORE: 0-UNK SIGNATURE PANEL: The following modified sections: Transfers: Bed, Chair, Wheelchair - Score, Transfers: Toilet - Score , Locomotion: Walk - Score, Locomotion: Wheelchair - Score, Locomotion: Stairs - Score were [electron bee] signed by Casimiro Wong PTA on SatMay 02 2018 14:50:57 GMT-0500 (Central Daylight Time)
--- NOTE | 2018-05-05 17:03 | FAST ---
ENCOUNTER DATE AND TIME: 04/30/2018 08:00 (CDT) NAME RADHA HAAS DATE OF : 1940 DATE OF ADMISSION: 04/24/2018 16:51 (CDT) PHONE: AGE: 77 N# [id number] GENDER: Female ENCOUNTER PHYSICIAN: Dr. Jack Marsh M.D. ADMISSION DIAGNOSIS: - Stroke 01 - Left Body (Right Brain) (01.1) ACUTE THALAMIC INFARCT. EATING: EATING - STEP 1: Does the patient require assistance when eating? No. EATING - SCORE: 7-IND GROOMING: Comb/brush hair Oral care Wash, rinse, and dry face Wash, rinse, and dry hands GROOMING - STEP 1: Does the patient require assistance when grooming? No. GROOMING - SCORE: 7-IND BATHING: Abdomen Buttocks Chest Left arm Left lower leg and foot Left upper leg Perineal area Right arm Right lower leg and foot Right upper leg BATHING - STEP 1: Does the patient require assistance when bathing? Yes. BATHING - STEP 2: Does the patient require the assistance of a helper? No. The patient only requires an assistive devic e such as a bath layla, OR the patient takes more than reasonable time to bathe, OR there is a concern for safety such as regulating water temperature as the patient bathes. BATHING - SCORE: 6-VIVEK DRESSING - UPPER BODY: Bra (three steps) T-shirt/pullover shirt (four steps) ARTICLES SCORE Total number of steps: 7 DRESSING - UPPER BODY - STEP 1: Does the patient require help when dressing above the waist? No. DRESSING - UPPER BODY - SCORE: 7-IND DRESSING - LOWER BODY: Elastic waist pants (three steps) Slip-on shoe - Left foot (one step) Slip-on shoe - Right foot (one step) Underwear (three steps) ARTICLES SCORE Total number of steps: 8 DRESSING - LOWER BODY - STEP 1: Does the patient require help when dressing below the waist? Yes. DRESSING - LOWER BODY - STEP 2: Does the patient require the assistance of a helper? No. Patient requires an assistive device such as a straight cutter. OR s/he takes more than reasonable time as s/he dresses the lower body, OR there is a con cern for safety when s/he dresses the lower body DRESSING - LOWER BODY - SCORE: 6-VIVEK TOILETING: TOILETING - STEP 1: Does the patient require assistance with toileting? Yes. TOILETING - STEP 2: Does the patient require the assistance of a helper? No. TOILETING - SCORE: 6-VIVEK BLADDER MANAGEMENT: Activity did not occur on this shift BLADDER MANAGEMENT - SCORE: 7-IND BOWEL MANAGEMENT: Activity did not occur on this shift BOWEL MANAGEMENT - SCORE: 7-IND TRANSFERS: BED, CHAIR, WHEELCHAIR: Activity did not occur on this shift TRANSFERS: BED, CHAIR, WHEELCHAIR - SCORE: 0-UNK TRANSFERS: TOILET: TRANSFERS: TOILET - STEP 1: Does the patient require assistance with toilet transfers? Yes. TRANSFERS: TOILET - STEP 2: Does the patient require the assistance of a helper? No. Patient only requires an assistive device straneg ch as a grab bar or special seat, OR s/he takes more than reasonable time to perform toilet transfers , OR there is a safety concern when s/he performs toilet transfers. TRANSFERS: TOILET - SCORE: 6-VIVEK TRANSFERS: SHOWER: TRANSFERS: SHOWER - STEP 1: Does the patient require assistance with shower transfers? Yes. TRANSFERS: SHOWER - STEP 2: Does the patient require the assistance of a helper? No. The patient only uses an assistive device, t akes more than reasonable time, OR there is a concern for safety when s/he performs transfers. TRANSFERS: SHOWER - SCORE: 6-VIVEK TRANSFERS: TUB: Activity did not occur on this shift TRANSFERS: TUB - SCORE: 0-UNK LOCOMOTION: WALK: Activity did not occur on this shift LOCOMOTION: WALK - SCORE: 0-UNK LOCOMOTION: WHEELCHAIR: Activity did not occur on this shift LOCOMOTION: WHEELCHAIR - SCORE: 0-UNK LOCOMOTION: STAIRS: Activity did not occur on this shift LOCOMOTION: STAIRS - SCORE: 0-UNK COMPREHENSION: COMPREHENSION: TYPE: Both COMPREHENSION - STEP 1: Does the patient require help to understand complex and abstract ideas (such as current events, finan jasbir, discharge planning, medical issues, relationships, etc)? No. COMPREHENSION - STEP 2: Does the patient need extra time, require an assistive device (such as glasses, hearing aids, or an a ugmentative communication system), OR does s/he have mild difficulty expressing complex and abstract ideas (including mild dysarthria or mild word-finding problems)? No. COMPREHENSION - SCORE: 7-IND EXPRESSION EXPRESSION: TYPE: Both EXPRESSION - STEP 1: Does the patient require help expressing complex and abstract ideas (such as current events, finances , discharge planning, medical issues, relationships, etc)? No. EXPRESSION - STEP 2: Does the patient need extra time, require an assistive device (such as augmentive communication syste m or a communication board), OR does s/he have mild difficulty expressing complex and abstract ideas (including mild dysarthria or mild word-find problems)? No. EXPRESSION - SCORE: 7-IND SOCIAL INTERACTION: SOCIAL INTERACTION - STEP 1: Does the patient require a helper to interact with others in social and therapeutic situations? No. SOCIAL INTERACTION - STEP 2: Does the patient need extra time in social situations, OR does s/he interact with staff, other patien ts, and family members ONLY in structured environments, OR does s/he require medication for social in teraction? No. SOCIAL INTERACTION - SCORE: 7-IND PROBLEM SOLVING: PROBLEM SOLVING - STEP 1: Does the patient need help to solve complex problems such as managing a checking account or confronti ng interpersonal problems? No. PROBLEM SOLVING - STEP 2: Does the patient require extra time to make decisions or solve problems, OR does s/he have slight dif ficulty reading, initiating, or self-correcting in unfamiliar situations? No. PROBLEM SOLVING - SCORE: 7-IND MEMORY: MEMORY - STEP 1: Does the patient need help to remember frequently encountered people, daily routines, and executing r equests? No. MEMORY - STEP 2: Does the patient have slight difficulty recognizing frequently encountered people, daily routines, or executing requests without the need for repetition or using self-initiated or environmental cues to remember? No. MEMORY - SCORE: 7-IND SIGNATURE PANEL: The following modified sections: Eating - Score, Grooming - Score, Bathing - Score, Dressing - Upper Body - Score, Dressing - Lower Body - Score, Toileting - Score, Transfers: Bed, Chair, Wheelchair - S core, Transfers: Toilet - Score, Transfers: Shower - Score, Transfers: Tub - Score, Comprehension - S core, Expression - Score, Social Interaction - Score, Problem Solving - Score, Memory - Score were [e lectronically] signed by Angelica Núñez OT on SatMay 05 2018 16:03:36 GMT-0500 (Central Daylight T sveta)
--- NOTE | 2018-05-28 15:47 | R.DS ---
FACILITY [facility] MR# [id number] NAME RADHA HAAS ADDRESS [address] [place] [address] [address] [id number] PHONE DATE OF 1940 AGE 77 SSN# [id number] GENDER Female DEXTERITY Right-handed MARITAL STATUS RACE White ENCOUNTER PHYSICIAN Dr. Jack Marsh M.D. REFERRING DOCTOR Laith Shaw REFERRING FACILITY [facility] DISCHARGE DIAGNOSIS: - Stroke 01 - Left Body (Right Brain) (01.1) ACUTE THALAMIC INFARCT. DISCHARGE COMORBIDITIES: - N/A HYPERTENSION DYSLIPIDEMIA HYPOTHYROIDISM SINUS ALLERGIES DATE OF ADMISSION 04/24/2018 16:51 (CDT) MEDICATION ALLERGIES: PENICILLIN STREPTOMYCIN ENVIRONMENTAL ALLERGIES: None Known - Substance Allergies None Known - Other Allergies None Known NURSING: - Shower allowing shower - Bladder care per protocol - Skin care per protocol PRECAUTIONS: - Fall Precaution Bed and chair alarm ACTIVITIES OOB only with supervision THERAPIES: - Occupational Therapy Evaluate and Treat Visual Perceptual Training Cognitive Retraining - Speech Therapy Cognitive Training Memory Strategies Speech Intelligibility Training Expressive Language Skills Receptive Language Skills - Physical Therapy Evaluate and Treat HISTORY OF PRESENT ILLNESS: Pt. is a 77 yo Right-handed white female.On 04/22/2018 Pt. presented to [facility] with sudden onset of left-side weakness.On 04/22/2018 she was admitted to [facility] with diagnosis ACUTE THALAMIC INFARCT.Her impairment category is Stroke 01 - Left Body (Ri ght Brain) (01.1).Pre-morbidly, Pt. was independent/mod-I in Self-Care, Sphincter Control, Communicat ion, and Social Cognition; and she had good Sphincter Control.Currently, she has deficits of Safety A wareness, Transfers Control, Balance, Endurance, Locomotion, and Self-Care.Pt. is now referred to [facility] for acute in-patient rehabilitation in order to maximize patient's fun ctional independence in activities of daily living, strength, ROM, and mobility.- Rehab Goal Patient has realistic goal of being discharged at assistance level 6-Kim to reside at Home with Fam lul/Relatives. HOSPITAL COURSE: FALL PRECAUTION: DIET - LIQUID TEXTURE: On 04/24/2018 Pt was upgraded to Regular Diet - Liquid Texture. DIET - SOLID TEXTURE: On 04/24/2018 Pt was upgraded to Regular Diet - Solid Texture. DIET TYPE: On 04/24/2018 Pt was changed to Heart healthy Diet Type. On 04/24/2018 the following precautions were added for the patient: Fall Precaution - Bed and chair a larm. The following precautions were removed for the patient: Fall Precaution - Bed and chair alarm. TUBE FEED: On 04/24/2018 Pt was changed to N/A Tube Feed. DISCHARGE PHYSICAL EXAM - Gen Alert and awake Lying in bed No apparent distress Oriented to: person, time, and place - Vital Signs Temperature: 97 F SBP/DBP: 189/81 Pulse: 65 Resp: 16 - Skin No skin breakdown. Normacephalic - Eyes No abnormalities - ENMT No abnormalities - Neck No abnormalities - CVS RRR - Chest Clear - Resp Clear to auscultation - Abd Soft - GI Non distended Deferred - No abnormalities - Ext No significant edema - MSK No Stiffness - Neuro Incoordination, mild lower extremity weakness and dysmetria, unsteady gait - Psych No abnormalities FUNCTIONAL STATUS: - Self-Care A. Eating 7-Ind 7-Ind B. Grooming 6-Kim 7-Ind C. Bathing 5-sup 6-Kim D. Dressing - Upper 5-sup 7-Ind E. Dressing - Lower 5-sup 7-Ind F. Toileting 5-sup 7-Ind - Sphincter Control G: Bladder control 7-Ind 7-Ind H: Bowel control 7-Ind 7-Ind - Transfers Control I. Bed/Chair/Wheelchair 5-sup 7-Ind J. Toilet 5-sup 7-Ind K. Tub/Shower 0-ADNO 6-Kim - Locomotion L. Walk/Wheelchair (W) 5-sup 7-Ind M. Stairs 0-ADNO 6-Kim - Communication N. Comprehension (B) 7-Ind 7-Ind O. Expression (B) 7-Ind 7-Ind - Social Cognition P. Social Interaction 7-Ind 7-Ind Q. Problem Solving 7-Ind 7-Ind R. Memory 7-Ind 7-Ind - Endurance Fair - Balance Fair - Safety Awareness Fair DISCHARGE INSTRUCTIONS: - N/A Lovenox 30 mg subcutaneous daily and aspirin 325 mg daily. DISCHARGE PLAN, FOLLOW UP CARE PROVISIONS: - Estimated Length of Stay (days) 17. - Consensus on plan Discharge plan has been discussed with primary caregiver. Patient/Family is in agreement with the marbella n. Primary caregiver is in agreement with the plan. - Patient/Family Goals Return home with assistance. - Planned Living Setting Upon Discharge Home, to live with Family/Relatives. SIGNATURE PANEL: (CDT)
== END 2018-05-01 13:30 | disposition home or self-care (01) | DRG 57 ==
LOC: 5TH-TC 16:51 → 5TH 17:10
PROVIDERS: ADMIT Psychiatry & Neurology Neurology with Special Qualifications in Child Neurology; ATTEND Psychiatry & Neurology Neurology with Special Qualifications in Child Neurology
DX: I69.354 Hemiplegia and hemiparesis following cerebral infarction affecting left non-dominant side (principal)
CPT/HCPCS: 36415; 80048; 81001; 82040; 83735; 84134; 85025; 87086; 87088; J1650